=== PATIENT | female | born 1995 | race Caucasian/White ===

== ENCOUNTER 2019-07-20 17:41 | Emergency (ER) | payer BC, SELFPAY ==
[2019-07-20 17:45] VITALS: BP 145/102; PULSE 125; RESP 18; TEMP 36.4; O2SAT 100
[2019-07-20 17:55] VITALS: RESP 18
--- NOTE | 2019-07-20 18:06 | PC.NURSE ---
Spoke with poison control at this time, states Clonazepam peaks at approx 1-4 hours after ingestion and has a half life of 30-40 hours where patient may be tired. Recommends symptomatic and supportive care, monitor for mild hypotension. Also states based on patients weight and age max dose is approx 36.8 mg.
--- NOTE | 2019-07-20 18:13 | ECG_ITS ---
Measurements Intervals [place] Rate: 111 P: 47 OK: 154 QRS: 20 QRSD: 72 T: 14 QT: 305 QTc: 416 Interpretive Statements SINUS TACHYCARDIA POSSIBLE LEFT ATRIAL ENLARGEMENT LOW QRS VOLTAGE IN PRECORDIAL LEADS BORDERLINE T WAVE ABNORMALITY- INFERIOR LEADS ABNORMAL ECG Electronically Signed On 07-21-2019 7:57:07 CDT by Scott Murray D.O.
[2019-07-20 18:27] LABS: Basophils Absolute Auto 0.1 K/mm3 (0.0-0.1); Basophils Percent Auto 0.4 % (0.2-1.2); Eosinophils Absolute Auto 0.3 K/mm3 (0-0.3); Eosinophils Percent Auto 2.3 % (0-4.4); Hematocrit 37.9 % (37.0-47.0); Hemoglobin 11.5 g/dL (12.0-15.0); Immature Granulocyte Absolute 0.08 K/mm3 (0.00-0.031); Immature Granulocyte Percent A 0.6 % (0-0.5); Lymphocytes Absolute Auto 2.86 K/mm3 (0.9-3.2); Lymphocytes Percent Auto 20.3 % (18.3-44.2); Mean Corpuscular HGB Conc 30.3 g/dl (32-36); Mean Corpuscular Hemoglobin 23.4 pg (26-34); Mean Corpuscular Volume 77.2 fl (80-100); Mean Platelet Volume 9.7 fl (7.4-10.4); Monocytes Absolute Auto 0.8 K/mm3 (0.1-0.6); Monocytes Percent Auto 5.5 % (2.6-8.5); Neutrophils Percent Auto 70.9 % (45.5-73.1); Platelet Count Result 465 k/mm3 (150-375); Red Blood Count 4.91 M/mm3 (4.2-5.4); Red Cell Distribution Width 15.9 % (11.5-14.5); White Blood Count 14.1 K/mm3 (4.5-10.0)
[2019-07-20 18:29] LABS: Add Urine Microscopic? NO; Appearance Urine Clear (Clear); Bilirubin Urine Negative (Negative); Blood Urine Negative (Negative); Color Urine Colorless (Yellow); Glucose Urine UA Negative (Negative); Ketones Urine Negative (Negative); Leukocyte Esterase Ur Negative LEU/UL (Negative); Nitrate Urine Negative (Negative); Protein Urine Negative (Negative); Specific Grav Ur 1.006 (1.001-1.035); Urobilinogen Urine Negative mg/dL (<2.0)
[2019-07-20 18:37] VITALS: BP 144/93; PULSE 121; RESP 23; O2SAT 100
[2019-07-20 18:41] LABS: Alanine Aminotransferase 18 U/L (4-35); Albumin Level 4.4 g/dL (3.5-5.1); Alkaline Phosphatase 126 U/L (38-126); Aspartate Amino Transferase 23 U/L (14-36); Bilirubin,Total 0.3 mg/dL (0.2-1.3); Blood Urea Nitrogen 10 mg/dL (7-17); Calcium 9.4 mg/dL (8.4-10.2); Carbon Dioxide 29 mmol/L (22-30); Chloride 101 mmol/L (98-107); Estimated Glomerular Filt Rate > 60; Ethanol < 10 mg/dL (<10); Glucose 91 mg/dL (65-105); Sodium 137 mmol/L (137-145)
[2019-07-20 18:42] LABS: Potassium 3.7 mmol/L (3.4-5.0)
[2019-07-20 18:44] LABS: Amphetamine Screen Urine Negative (Negative); Barbiturate Screen Urine Negative (Negative); Benzodiazepines Screen Urine Negative (Negative); Cannabinoid Screen Urine Negative (Negative); Cocaine Screen Urine Negative (Negative); Methadone Screen Urine Negative (Negative); Opiate Screen Urine Negative (Negative)
[2019-07-20 18:47] LABS: Phencyclidine Screen Urine Negative (Negative)
--- NOTE | 2019-07-20 19:05 | ED.GENADULT ---
HPI - General Adult General Chief complaint: Overdose <Kevin Mandujano PA-C - Last Filed: 07/20/19 19:12> Stated complaint: TOOK 8 KLONOPIN <Kevin Mandujano PA-C - Last Filed: 07/20/19 19:12> Time Seen by Provider: 07/20/19 18:13 <Kevin Mandujano PA-C - Last Filed: 07/20/19 19:12> Source: patient <Kevin Mandujano PA-C - Last Filed: 07/20/19 19:12> Mode of arrival: ambulatory <Kevin Mandujano PA-C - Last Filed: 07/20/19 19:12> Limitations: no limitations <Kevin Mandujano PA-C - Last Filed: 07/20/19 19:12> History of Present Illness HPI narrative: Patient is a 24-year-old female who presents after noting that she took 10 0.5 mg Klonopin's 45 minutes prior to arrival after becoming anxious and stressed over cutting her boyfriend's 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 Patient denies any suicidal homicidal ideation or passive wish. Patient notes that she normally takes 0.5 mg daily for anxiety. On arrival patient notes feeling tired but has no other complaints. Patient denies any other history of trying to harm herself or others. <Kevin Mandujano PA-C - Last Filed: 07/20/19 19:12> Related Data Home medications: Home Medications Medication Instructions Recorded Confirmed acyclovir 800 mg PO DAILY 07/20/19 clonazepam 0.5 mg PO DAILY 07/20/19 <Kevin Mandujano PA-C - Last Filed: 07/20/19 19:12> Allergies/adverse reactions: Allergies Allergy/AdvReac Type Severity Reaction Status Date / Time cefprozil Allergy Unknown Unknown Verified 07/20/19 17:59 <Kevin Mandujano PA-C - Last Filed: 07/20/19 19:12> Review of Systems Review of Systems: All systems reviewed & are unremarkable except as noted in HPI and below <Kevin Mandujano PA-C - Last Filed: 07/20/19 19:12> PMFSH Past Medical History Medical History: Medical History Anxiety <Kevin Mandujano PA-C - Last Filed: 07/20/19 19:12> Surgical History Surgical History: Surgical History Hx of breast reduction, elective <Kevin Mandujano PA-C - Last Filed: 07/20/19 19:12> Social History Social History: Social History (Updated 07/20/19 @ 19:06 by Kevin Mandujano PA-C) Smoking status: Current every day smoker Alcohol intake: never Substance use: never Living arrangements: with family Occupation/Education: occupation Gender identity (if verbalized by the patient): Female <Kevin Mandujano PA-C - Last Filed: 07/20/19 19:12> Exam Narrative: Exam Narrative: GENERAL: Well-appearing, obese, and in no acute distress. HEAD: Normocephalic, atraumatic. EYES: PERRLA and EOMI. ENT: Nares clear, no rhinorrhea or epistaxis. Mucous membranes moist. Oropharynx without tonsillar hypertrophy exudate or other lesions. NECK: Supple. No adenopathy or masses. CHEST: Clear to auscultation. No respiratory distress. No wheezes rales or rhonchi HEART: Regular rate and rhythm. No murmur heard. Normal peripheral pulses. ABDOMEN: Soft, nontender, nondistended EXTREMITIES: Normal range of motion. No edema. SKIN: Warm, dry, no rash. NEURO: No focal deficits. Alert and oriented x3. Cranial nerves II through XII grossly intact. Normal speech PSYCH: Normal mood and affect. 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 She is here with her partner, and has been discharged from the psychiatric service. I asked her not to take more medicine than prescribed and to follow-up with her PCP. She has no other concerns. <Rosa Isela Cortés MD - Last Filed: 07/20/19 20:44> Vital Signs Vital signs: Vital Signs Temperature 97.5 F L 07/20/19 17:45 Pulse Rate 125 H 07/20/19 17:45 Respiratory Rate 18 07/20/19 17:45 Blood Pressure 145/102 H 07/20/19 17:45 Pulse Oximetry 100 07/20/19 17:45 T
[2019-07-20] MEDS: SODIUM CHLORIDE 0.9% IV 1,000 ML 999 ML IV CONT (19:30)
--- NOTE | 2019-07-20 19:48 | PC.NURSE ---
Crisis here at this time to evaluate pt.
== END 2019-07-20 20:58 | disposition home or self-care (01) ==
PROVIDERS: Emergency Provider Emergency Medicine; PCP Internal Medicine
DX: T42.4X1A Poisoning by benzodiazepines, accidental (unintentional), initial encounter (principal); F41.9 Anxiety disorder, unspecified; R00.0 Tachycardia, unspecified; R94.31 Abnormal electrocardiogram [ECG] [EKG]; F17.200 Nicotine dependence, unspecified, uncomplicated
CPT/HCPCS: 36415; 80053; 80307; 81003; 81025; 84443; 85025; 93005; 96360; 99284; J7030

== ENCOUNTER 2020-08-28 11:47 | Emergency (ER) | payer BC, SELFPAY ==
--- NOTE | 2020-08-28 11:51 | ED.URI ---
HPI - URI/Sore Throat General Chief Complaint: Upper Respiratory Infection Stated Complaint: SINUS CONGESTION/DRAINAGE/COUGH/EARACHE Time Seen by Provider: 08/28/20 11:51 Source: patient and RN notes reviewed History of Present Illness HPI Narrative: Patient is a 25-year-old female who presents the urgent care with complaints of sinus drainage, congestion, bilateral earache, cough. Patient states her right ear is really hurting the last couple weeks. States that symptoms have been ongoing for approximately a week and a half. States that her PCP has tested her for Covid twice since symptoms started and both tests were negative. Patient states that her PCP advised her to take Claritin as well as NyQuil and Mucinex. Patient states symptoms have not really improved. Denies of any fever, nausea, vomiting. No other acute complaints. No acute distress noted. Patient aware of the plan of care. Some parts of this dictation were generated by voice recognition software and may contain typographical and/or grammatical inaccuracies. Related Data Home Medications Medication Instructions Recorded Confirmed Claritin 08/28/20 Allergies Allergy/AdvReac Type Severity Reaction Status Date / Time cefprozil Allergy Unknown Unknown Verified 07/20/19 17:59 Review of Systems Review of Systems: Narrative: CONSTITUTIONAL: Denies fever, chills, or sweats. EYES: Denies visual changes, redness, or discharge. ENT: Reports of sinus congestion, bilateral otalgia worse on the right, sinus drainage CARDIOVASCULAR: Denies chest pain, palpitations, or edema. RESPIRATORY: Reports of cough without dyspnea GASTROINTESTINAL: Denies abdominal pain, nausea, vomiting, or diarrhea. GENITOURINARY: Denies dysuria or hematuria. SKIN: Denies rash or itching. MUSCULOSKELETAL: Denies back pain, joint pain, or myalgia. NEUROLOGIC: Denies headache, numbness, or weakness. All other systems reviewed are negative, except as documented in HPI. [facility] Past Medical History Medical History (Updated 08/28/20 @ 12:09 by IRMA Reich) Anxiety Surgical History Surgical History Hx of breast reduction, elective Social History Social History (Updated 07/20/19 @ 19:06 by Kevin Mandujano PA-C) Smoking status: Current every day smoker Alcohol intake: never Substance use: never Gender identity (if verbalized by the patient): Female Comments At the time of my signature, I reviewed and agree with the nursing past medical, surgical, social, and family history. There is no relevant family history pertinent to the patient complaint. Exam Narrative: Exam Narrative: GENERAL: This is a well-nourished, well-developed patient, in no apparent distress. HEAD: normocephalic, atraumatic. EYES: PERRL. Sclera clear/white. Vision is grossly intact. EARS: External ears normal, auditory canals clear and without drainage, moderately injected TM with moderate effusion to the right. Mild fluid noted behind left TM without otitis. Hearing grossly intact. NOSE: External nose normal with no obvious nasal discharge, nares without redness, no rhinorrhea. THROAT: Mucous membranes moist, posterior pharynx clear. Moderate postnasal drainage NECK: Neck supple, non-tender without lymphadenopathy CARDIOVASCULAR: Regular rate and rhythm without murmurs, gallops, or rubs. RESPIRATORY: Clear to auscultation. Breath sounds equal bilaterally. No wheezes, rales, or rhonchi. SKIN: warm, intact with no suspicious lesions or rash, good texture and turgor. NEURO: awake, alert, and oriented to person, place and time. There were no obvious focal neurologic abnormalities. EXTREMITIES: No clubbing, cyanosis, or edema. Course Vital Signs Vital signs: Vital Signs Temperature 97.9 F 08/28/20 11:55 Pulse Rate 95 08/28/20 11:55 Respiratory Rate 16 08/28/20 11:55 Blood Pressure 155/93 H 08/28/20 11:55 Pulse Oximetry 99 08/28
[2020-08-28 11:55] VITALS: BP 155/93; PULSE 95; RESP 16; TEMP 36.6; O2SAT 99
== END 2020-08-28 12:16 | disposition home or self-care (01) ==
PROVIDERS: Emergency Provider Nurse Practitioner Family; PCP Internal Medicine
DX: H66.91 Otitis media, unspecified, right ear (principal); J32.9 Chronic sinusitis, unspecified; F17.200 Nicotine dependence, unspecified, uncomplicated; R03.0 Elevated blood-pressure reading, without diagnosis of hypertension
CPT/HCPCS: 99213; G0463

== ENCOUNTER 2021-12-18 08:13 | Emergency (ER) | payer BC, SELFPAY ==
[2021-12-18 08:21] VITALS: BP 139/94; PULSE 98; RESP 16; TEMP 37; O2SAT 98
--- NOTE | 2021-12-18 08:21 | ED.URI ---
HPI - URI/Sore Throat General Chief Complaint: Upper Respiratory Infection Stated Complaint: SINUS CONGESTION/EARS CLOGGED/EYE DRAINAGE Time Seen by Provider: 12/18/21 08:21 Source: patient and RN notes reviewed Mode of arrival: ambulatory Limitations: no limitations History of Present Illness HPI Narrative: 26-year-old female presented for complaint of sinus congestion, bilateral ear pressure and left eye drainage for 2 days. She endorses the eye was crusted shut for 2 days and has had green discharge. She denies known sick contacts. 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 She denies shortness of breath, cough, wheezing, nausea, vomiting, diarrhea, fevers or chills. She is been doing Claritin, Flonase for symptoms. MD elicited complaint: cough Related Data Home Medications Medication Instructions Recorded Confirmed labetalol 200 mg tablet mg 12/18/21 Allergies Allergy/AdvReac Type Severity Reaction Status Date / Time cefprozil Allergy Unknown Unknown Verified 07/20/19 17:59 Review of Systems Review of Systems: CONSTITUTIONAL: Denies malaise, chills, sweats, fever EYES: Denies visual changes, redness, or discharge ENT: Reports rhinorrhea, congestion, sinus pain, otalgia, denies sore throat CARDIOVASCULAR: Denies chest pain, palpitations, edema RESPIRATORY: Reports post nasal drainage. Denies dyspnea GASTROINTESTINAL: Denies abdominal pain, nausea, vomiting, diarrhea SKIN: Denies rash or itching MUSCULOSKELETAL: Denies myalgia NEUROLOGIC: Denies headache PMFSH Past Medical History Medical History Anxiety Surgical History Surgical History Hx of breast reduction, elective Social History Social History Smoking status: Current every day smoker Alcohol intake: never Substance use: never Gender identity (if verbalized by the patient): Female Exam Narrative: GENERAL: Well-appearing EYES: conjunctivae clear to right eye, mild conjunctival injection to left eye. No purulent drainage. Mild left eye lid swelling. ENT: Mucous membranes moist. TM pearly carrasco with dull light reflex bilaterally; no tragal tenderness. Oropharynx erythematous without lesions or exudate CHEST: Clear to auscultation, breath sounds equal. HEART: Regular rate and rhythm. No murmur heard. SKIN: Warm, dry, no rash. NEURO: Alert and oriented x3. PSYCH: Normal mood and affect Course Course Emergency Course: Patient is aware of diagnosis, understands and agrees to treatment plan. Anticipatory guidance given. Patient agrees to follow-up as directed and is aware of reasons to seek care at the emergency department. Portions of this record may have been created with voice recognition software Level of Care: Express Care Visit Vital Signs Vital signs: reviewed MDM - URI/Sore Throat MDM Narrative Medical decision making narrative: Advised supportive measures for allergic rhinitis, will give antibiotic drops for left eye for reported green discharge. Reviewed signs/symptoms to go to the ER. Pt is appropriate for outpt treatment and f/u. Differential Diagnosis Differential diagnosis: Likely upper respiratory infection, sinusitis and viral infection Discharge Plan Discharge Clinical Impression: Allergic rhinitis Qualifiers: Allergic rhinitis trigger: unspecified Allergic rhinitis seasonality: unspecified Qualified Code(s): J30.9 - Allergic rhinitis, unspecified Conjunctivitis Qualifiers: Conjunctivitis type: acute Acute conjunctivitis type: unspecified Laterality: left Qualified Code(s): H10.32 - Unspecified acute conjunctivitis, left eye Patient Disposition: Home, Self-Care Condition: Stable Instructions: Allergic Rhinitis (ED), Conjunctivitis (ED) Additional Instructions: Recommend continuing Flonase spray and Zyrtec (or Claritin/Kylah) Avoid touching
== END 2021-12-18 08:39 | disposition home or self-care (01) ==
PROVIDERS: Emergency Provider Nurse Practitioner Family; PCP Internal Medicine
DX: J30.9 Allergic rhinitis, unspecified (principal); H10.32 Unspecified acute conjunctivitis, left eye; F17.200 Nicotine dependence, unspecified, uncomplicated
CPT/HCPCS: 99213; G0463

== ENCOUNTER 2022-03-15 14:09 | Emergency (ER) | payer BC, SELFPAY ==
--- NOTE | 2022-03-15 14:15 | ED.URI ---
HPI - URI/Sore Throat General Chief Complaint: Upper Respiratory Infection Stated Complaint: FEVER/BODY ACHES/CHILLS/DIARRHEA/COUGH Time Seen by Provider: 03/15/22 14:15 Source: patient and RN notes reviewed History of Present Illness HPI Narrative: Patient is a 26-year-old female who presents to urgent care complaints of fever, body aches, chills cough. Patient states symptoms started yesterday morning she has been taking Tylenol cold and flu. Denies any nausea or vomiting. States that her job but would like her evaluated for influenza. No other acute complaints. No acute distress noted. Patient aware of plan of care. Some parts of this dictation were generated by voice recognition software and may contain typographical and/or grammatical inaccuracies. Related Data Allergies Allergy/AdvReac Type Severity Reaction Status Date / Time cefprozil Allergy Unknown Unknown Verified 03/15/22 14:52 Review of Systems Review of Systems: CONSTITUTIONAL: Reports of fever, chills EYES: Denies visual changes, redness, or discharge. ENT: Reports of postnasal drainage CARDIOVASCULAR: Denies chest pain, palpitations, or edema. RESPIRATORY: Reports of cough without dyspnea GASTROINTESTINAL: Denies abdominal pain, nausea, vomiting GENITOURINARY: Denies dysuria or hematuria. SKIN: Denies rash or itching. MUSCULOSKELETAL: Denies back pain, joint pain. Reports body aches NEUROLOGIC: Denies headache, numbness, or weakness. All other systems reviewed are negative, except as documented in HPI. [facility] Past Medical History Medical History (Updated 03/15/22 @ 14:51 by IRMA Reich) Anxiety Surgical History Surgical History Hx of breast reduction, elective Social History Social History Smoking status: Current every day smoker Alcohol intake: never Substance use: never Gender identity (if verbalized by the patient): Female Comments At the time of my signature, I reviewed and agree with the nursing past medical, surgical, social, and family history. There is no relevant family history pertinent to the patient complaint. Exam Narrative: GENERAL: This is a well-nourished, well-developed patient, in no apparent distress. HEAD: normocephalic, atraumatic. EYES: PERRL. Sclera clear/white. Vision is grossly intact. EARS: External ears normal, auditory canals clear and without drainage, TMs normal without perforation. Hearing grossly intact. NOSE: External nose normal with no obvious nasal discharge, nares without redness, no rhinorrhea. THROAT: Mucous membranes moist, posterior pharynx clear. Moderate postnasal drainage NECK: Neck supple, non-tender without lymphadenopathy CARDIOVASCULAR: Regular rate and rhythm without murmurs, gallops, or rubs. RESPIRATORY: Clear to auscultation. Breath sounds equal bilaterally. No wheezes, rales, or rhonchi. SKIN: warm, intact with no suspicious lesions or rash, good texture and turgor. NEURO: awake, alert, and oriented to person, place and time. There were no obvious focal neurologic abnormalities. EXTREMITIES: No clubbing, cyanosis, or edema. Course Course Level of Care: Express Care Visit Vital Signs Vital signs: Vital Signs Temperature 99.0 F 03/15/22 14:16 Pulse Rate 109 H 03/15/22 14:16 Respiratory Rate 16 03/15/22 14:16 Blood Pressure 138/89 03/15/22 14:16 Pulse Oximetry 99 03/15/22 14:16 Oxygen Delivery Room Air 03/15/22 14:16 Temperature 99.0 F 03/15/22 14:16 Pulse Rate 109 H 03/15/22 14:16 Respiratory Rate 16 03/15/22 14:16 Blood Pressure 138/89 03/15/22 14:16 Pulse Oximetry 99 03/15/22 14:16 Oxygen Delivery Room Air 03/15/22 14:16 Reviewed MDM - URI/Sore Throat MDM Narrative Medical decision making narrative: Reviewed lab results with the patient. She is aware the flu swab was negative. Symptoms are consiste
[2022-03-15 14:16] VITALS: BP 138/89; PULSE 109; RESP 16; TEMP 37.2; O2SAT 99
== END 2022-03-15 14:56 | disposition home or self-care (01) ==
PROVIDERS: Emergency Provider Nurse Practitioner Family; PCP Internal Medicine
DX: J06.9 Acute upper respiratory infection, unspecified (principal); F17.200 Nicotine dependence, unspecified, uncomplicated
CPT/HCPCS: 87804; 99213; G0463

== ENCOUNTER 2022-06-03 09:57 | Emergency (ER) | payer BC, SELFPAY ==
--- NOTE | ~2022-06-03 | XR_ITS ---
EXAMINATION: XR finger 1st LT min 2V DATE: 06/03/2022 10:27 INDICATION: Left thumb pain and injury. TECHNIQUE: 3 views of left thumb were obtained. COMPARISON: None. FINDINGS: Bone alignment is normal. No fracture. Joint spaces are normal. IMPRESSION: 1. No fracture. Reviewed, dictated and finalized at location A. RITY OFFICER IMPRESSION: 1. No fracture.
[2022-06-03 10:08] VITALS: BP 138/91; PULSE 91; RESP 20; TEMP 36.9; O2SAT 100
--- NOTE | 2022-06-03 10:11 | ED.UPPEXIN ---
HPI - Extremity Injury (Upper) General Chief Complaint: Extremity Injury, Upper Stated Complaint: lt thumb injury, rt palm injury Time Seen by Provider: 06/03/22 10:10 Source: patient, RN notes reviewed and old records reviewed Mode of arrival: ambulatory Limitations: no limitations History of Present Illness HPI narrative: 27-year-old female presents to the [facility] with complaints of left thumb injury since last night. Patient states that she was on the floor playing with her child when her hand slipped and thinks that her thumb bent backwards. Bruising, swelling noted, tenderness along the 1st metacarpal as well as the proximal 1st phalanx. Sensation intact, capillary refill under 2 seconds. No snuffbox tenderness, positive radial pulse Patient states that she has taken Tylenol, has a splint in place MD complaint: injury to: left, hand and finger Related Data Home Medications Medication Instructions Recorded Confirmed No Home Medications 06/03/22 06/03/22 Allergies Allergy/AdvReac Type Severity Reaction Status Date / Time cefprozil Allergy Unknown Unknown Verified 06/03/22 10:12 Review of Systems Review of Systems: All systems reviewed & are unremarkable except as noted in HPI and below Constitutional: Constitutional: Reports no additional constitutional complaints Eyes: Eyes: Reports no additional eye complaints ENT: Reports system reviewed and no additional complaints, except as documented Cardiovascular: Cardiovascular: Reports no additional cardiovascular complaints, Denies chest pain and Denies dyspnea Respiratory: Respiratory: Reports no additional respiratory complaints, Denies chest congestion, Denies cough and Denies dyspnea Gastrointestinal: Gastrointestinal: Reports no additional gastrointestinal complaints, Denies abdominal pain, Denies nausea and Denies vomiting Musculoskeletal: Musculoskeletal: Reports as per HPI, Reports arthralgias and Reports joint swelling Integumentary/Breasts: Skin/Breast: Reports system reviewed and no additional complaints, except as docu Neurologic: Reports system reviewed and no additional complaints, except as documented Psychiatric: Psychiatric: Reports no additional psychiatric complaints Allergic/Immunologic: Allergic/Immunologic: Reports no additional allergic/immunologic complaints PMFSH Past Medical History Medical History Anxiety Surgical History Surgical History Hx of breast reduction, elective Social History Social History (Reviewed 06/03/22 @ 12:23 by ALDO Herrera Smoking status: Current every day smoker Alcohol intake: never Substance use: never Living arrangements: with family Occupation/Education: occupation Gender identity (if verbalized by the patient): Female Comments At the time of my signature, I reviewed and agree with the nursing past medical, surgical, social, and family history. There is no relevant family history pertinent to the patient complaint. Exam Const: General: cooperative, healthy appearing, comfortable, no acute distress, well developed, alert and well nourished Nutritional Appearance: well nourished Orientation/consciousness: patient oriented x3 Limitations: no limitations HENMT: Head: normal to inspection Ears: hearing grossly normal bilaterally and external ears normal Face/Nose/Sinus: Normal external nose present, Normal nares present, Normal nasal mucous membranes and turbinates present and normal facial exam Face and sinus: normal facial exam Mouth: Yes Normal oral and palatal mucosa present, Yes lip normal and Yes moist mucous membranes Eyes: General: appearance normal, both eyes and all related structures Alignment and Position: alignment normal Periorbital: periorbital findings normal Conjunctivae: conjunctivae normal Pupils: Equal, round and reactive pupils present EOM:
== END 2022-06-03 10:53 | disposition home or self-care (01) ==
PROVIDERS: Emergency Provider Nurse Practitioner; PCP Internal Medicine
DX: S63.642A Sprain of metacarpophalangeal joint of left thumb, initial encounter (principal); F17.200 Nicotine dependence, unspecified, uncomplicated; W51.XXXA Accidental striking against or bumped into by another person, initial encounter
CPT/HCPCS: 73140; 99213; G0463

== ENCOUNTER 2022-11-18 07:01 | Outpatient (CLI) | payer BC, SELFPAY ==
[2022-11-18 08:28] LABS: Alanine Aminotransferase 17 U/L (6-35); Albumin Level 3.9 g/dL (3.5-5.1); Alkaline Phosphatase 104 U/L (38-126); Anion Gap 4 mmol/L (8-16); Aspartate Amino Transferase 19 U/L (14-36); Bilirubin,Total 0.4 mg/dL (0.2-1.3); Blood Urea Nitrogen 9 mg/dL (7-17); Calcium 8.8 mg/dL (8.4-10.2); Carbon Dioxide 26 mmol/L (22-30); Chloride 104 mmol/L (98-107); Cholesterol 186 mg/dL (0-200); Estimated Glomerular Filt Rate > 60; Glucose 91 mg/dL (65-110); HDL Direct 41 mg/dL; Potassium 4.2 mmol/L (3.4-5.0); Sodium 134 mmol/L (137-145); Triglycerides 125 mg/dL (<150)
[2022-11-18 08:39] LABS: LDL Cholesterol Direct 110 mg/dL
[2022-11-18 08:56] LABS: Vitamin D 25 Hydroxy 16.7 ng/mL
[2022-11-18 09:27] LABS: Hemoglobin A1C 5.1 % (<5.7)
[2022-11-22 13:00] LABS: Insulin Level Total 3.6 uIU/mL (<=19.6)
[2022-11-23 05:24] LABS: FSH 3.9 mIU/mL (***); LH 2.2 mIU/mL (***); Progesterone 0.2 ng/mL (***)
== END 2022-11-18 07:02 | disposition home or self-care (01) ==
LOC: ANHLAB 07:02
PROVIDERS: PCP Internal Medicine; Visit Provider Obstetrics & Gynecology
DX: N92.6 Irregular menstruation, unspecified (principal)
CPT/HCPCS: 36415; 80053; 80061; 82306; 83001; 83002; 83036; 83525; 84144; 84443

== ENCOUNTER 2023-03-07 07:42 | Emergency (ER) | payer BC, SELFPAY ==
--- NOTE | ~2023-03-07 | CT_ITS ---
CT of the Abdomen and Pelvis: Indication: Abdominal pain Technique: 2.5 mm axial scans were obtained through the abdomen and pelvis following intravenous adm inistration of 100 cc of Omnipaque 350. Dose reduction technique was used on this scan by utilizing a utomated exposure control and iterative reconstruction technique. The dose-length product (DLP) was 1 225.06 mGy-cm. Findings: Scans through the lung bases are unremarkable. The liver, spleen, pancreas, gallbladder, adrenals and kidneys are within normal limits. No evidence of aortic aneurysm. No lymphadenopathy. No bowel obstruction or bowel wall thickening. There is no evidence to suggest acute appendicitis. Images through the pelvis were performed. Urinary bladder unremarkable. No adnexal mass seen. No asci waylon. There is apparent mild inflammatory change in the vicinity of the left ovary, nonspecific. No fl uid collection evident. Impression: Suggestion of mild inflammatory change in the vicinity the left ovary, nonspecific. Fat necrosis, or other inflammatory processes are within the differential diagnosis. No apparent involvement or vicini ty to the large bowel or small bowel. Reviewed, dictated and finalized at location M. [employer] Impression: Suggestion of mild inflammatory change in the vicinity the left ovary, nonspeci fic. Fat necrosis, or other inflammatory processes are within the differential diagnosis. No apparent involvement or vicinity to the large bowel or small britney l.
--- NOTE | ~2023-03-07 | US_ITS ---
EXAMINATION: US pelvic complete w TV DATE: 03/07/2023 10:54 INDICATION: Assess for ovarian torsion with abnormal CT TECHNIQUE: Multiple transabdominal and endovaginal sonographic images of the pelvis were obtained. COMPARISON: None. FINDINGS: The uterus measures 9.2 x 4.6 x 3.8 cm. The endometrial complex measures or-5 mm in thickness. 5 mm anechoic nabothian cyst at the posterior cervix. 10 mm hypoechoic likely fibroid at the posterior mg rine fundus. The right ovary measures 2.5 x 1.5 x 1.6 cm with 1.7 cm anechoic cyst/follicle. The left ovary measures 2.5 x 1.9 x 1.8 cm. After flow identified in both ovaries on color Doppler. There is no free fluid in the pelvis. IMPRESSION: 1. Vascular flow identified with color Doppler at both of the normal-appearing ovaries. 2. 1 cm uterine fibroid. Reviewed, dictated and finalized at location A. RCOATER
[2023-03-07 07:45] VITALS: BP 143/89; PULSE 94; RESP 18; TEMP 36.5; O2SAT 95
[2023-03-07 08:40] LABS: Basophils Absolute Auto 0.1 K/mm3 (0.0-0.1); Basophils Percent Auto 0.8 % (0.2-1.2); Eosinophils Absolute Auto 0.4 K/mm3 (0-0.3); Hematocrit 30.7 % (37.0-47.0); Hemoglobin 8.9 g/dL (12.0-15.0); Immature Granulocyte Absolute 0.05 K/mm3 (0.00-0.031); Immature Granulocyte Percent A 0.5 % (0-0.5); Lymphocytes Absolute Auto 2.34 K/mm3 (0.9-3.2); Lymphocytes Percent Auto 25.2 % (18.3-44.2); Mean Corpuscular Volume 72.6 fl (80-100); Mean Platelet Volume 8.8 fl (7.4-10.4); Monocytes Absolute Auto 0.5 K/mm3 (0.1-0.6); Monocytes Percent Auto 5.1 % (2.6-8.5); Neutrophils Percent Auto 64.4 % (45.5-73.1); Platelet Count Result 340 k/mm3 (150-375); Red Blood Count 4.23 M/mm3 (4.2-5.4); Red Cell Distribution Width 16.7 % (11.5-14.5); White Blood Count 9.3 K/mm3 (4.5-10.0)
[2023-03-07 08:50] LABS: Bacteria Urine None Seen /hpf; Non Pathogenic Casts 0-2; Squamous Epithelial Cell Urine None seen /hpf (Few); WBC Urine 0-5 /hpf
[2023-03-07 08:51] LABS: Alanine Aminotransferase 14 U/L (6-35); Albumin Level 3.7 g/dL (3.5-5.1); Alkaline Phosphatase 98 U/L (38-126); Anion Gap 9 mmol/L (8-16); Aspartate Amino Transferase 17 U/L (14-36); Bilirubin,Total 0.4 mg/dL (0.2-1.3); Blood Urea Nitrogen 7 mg/dL (7-17); Calcium 9.2 mg/dL (8.4-10.2); Carbon Dioxide 24 mmol/L (22-30); Chloride 107 mmol/L (98-107); Estimated Glomerular Filt Rate > 60; Glucose 103 mg/dL (65-110); Potassium 3.8 mmol/L (3.4-5.0); Sodium 140 mmol/L (137-145)
[2023-03-07 08:52] LABS: Prothrombin Time 13.4 Seconds (11.1-14.7)
[2023-03-07 08:53] LABS: Partial Thromboplastin Time 29.5 SECONDS (22.3-36.8)
[2023-03-07 09:02] LABS: Appearance Urine Clear (Clear); Blood Urine 2+ (Negative); Color Urine Yellow (Yellow); Glucose Urine UA Negative (Negative); Ketones Urine Negative (Negative); Nitrate Urine Negative (Negative); Protein Urine Negative (Negative)
[2023-03-07 09:03] LABS: Add Urine Microscopic? YES; Bilirubin Urine Negative (Negative); Leukocyte Esterase Ur Negative LEU/UL (Negative); Urobilinogen Urine 0.2 mg/dL (<2.0)
--- NOTE | 2023-03-07 09:06 | ED.GENADULT ---
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 CRAMPING Time Seen by Provider: 03/07/23 08:26 History of Present Illness HPI narrative: 27-year-old female presenting to the emergency department for evaluation for lower abdominal pain. Patient reports the last few months she has had very irregular periods and patient has been following up with OB Gyne for this. Patient reports in February she was started on control to help regulate her period but has still been having heavy periods. patient reports she is currently menstruating. Patient presented to the emergency department today due to increased lower abdominal pain. Patient did take Tylenol and ibuprofen for pain control. Related Data Home Medications Medication Instructions Recorded Confirmed lisinopril 10 mg tablet 10 mg PO DAILY 11/15/22 bupropion HCl 150 mg 24 hr tablet, mg PO 03/07/23 03/07/23 extended release valacyclovir 500 mg tablet 500 mg PO PRN 03/07/23 (Valtrex) Allergies Allergy/AdvReac Type Severity Reaction Status Date / Time cefprozil Allergy Unknown Unknown Verified 03/07/23 07:52 Review of Systems Review of Systems: All systems reviewed & are unremarkable except as noted in HPI and below PMFSH Past Medical History Medical History Anxiety HSV-2 (herpes simplex virus 2) infection Hypertension Surgical History Surgical History History of section Hx of breast reduction, elective Social History Social History Smoking status: Current every day smoker Alcohol intake: current Alcohol use details: Rarely Substance use: never Lack of Transportation: No Lack of Food: Never True Current Housing: I Have Housing Concerned About Future Housing: No Difficulty Paying Gas/Electric Bills: No Difficulty Paying for Meds: No Currently Unemployed: No Education: Associate Degree Difficulty w/ Childcare or Family Care: No Living arrangements: with family Occupation/Education: occupation Gender identity (if verbalized by the patient): Female Sexual Orientation (if Verbalized by the Patient): Straight or Heterosexual Spiritual care concerns: No Exam Narrative: APPEARANCE: Well appearing, no pain, no distress, well-nourished. HEAD: normocephalic, atraumatic. EYES: PERRLA/EOMI, conjunctivae clear. NOSE: Normal no drainage EARS:TMS clear with good light reflex. THROAT: Pharynx clear, no exudate. NECK: Supple. No adenopathy, no masses. RESPIRATORY: Airway patent, respirations nonlabored. Clear to auscultation bilaterally, no rales, rhonchi, wheezing. CARDIOVASCULAR: Regular rate and rhythm without murmurs rubs or gallops. ABDOMINAL: Soft, suprapubic tenderness to palpation MUSCULOSKELETAL: Moves all extremities. Strength/ROM intact, No edema, No calf tenderness. NEURO: Alert. Cranial nerves II through XII intact. Grossly intact SKIN: Warm, dry. Normal Color Course Course Emergency Course: 27-year-old female presenting to the emergency department for evaluation lower abdominal pain and vaginal bleeding. Patient is afebrile with a white count of 9.3. Patient's hemoglobin is 8.9 , patient has known anemia secondary to heavy vaginal bleeding. PT PTT are within normal limits. No significant abnormalities on the CMP UA did show evidence of hematuria but patient is still having vaginal bleeding. CT scan did show some nonspecific fat stranding associated with the left ovary with no identification for the patient's symptoms. Ultrasound was ordered to evaluate for torsion and patient has good blood flow to both ovaries. The patient was updated on the results of her workup the patient was encouraged to have close follow-up with her OB Gyne. All questions concerns were addressed Vital Signs Vital
[2023-03-07] MEDS: SODIUM CHLORIDE 0.9% IV 1,000 ML 999 ML IV CONT (09:14)
[2023-03-07] MEDS: HYDROmorphone HCL INJ (*CRX) 1 MG/ML SYR 0.5 MG IV PUSH (09:14)
[2023-03-07 11:06] VITALS: BP 149/99; PULSE 73; RESP 18; O2SAT 99
[2023-03-07 12:16] VITALS: BP 149/82; PULSE 70; RESP 14; O2SAT 96
== END 2023-03-07 12:17 | disposition home or self-care (01) ==
PROVIDERS: Emergency Provider Emergency Medicine; PCP Internal Medicine
DX: R10.30 Lower abdominal pain, unspecified (principal); D64.9 Anemia, unspecified; N92.6 Irregular menstruation, unspecified; F17.210 Nicotine dependence, cigarettes, uncomplicated; I10 Essential (primary) hypertension; F41.9 Anxiety disorder, unspecified
CPT/HCPCS: 36415; 74177; 76830; 76856; 80053; 81001; 81025; 85025; 85610; 85730; 96361; 96374; 99284; J1170; J7030; Q9967

== ENCOUNTER 2023-06-01 16:04 | Emergency (ER) | payer BC, SELFPAY ==
[2023-06-01 16:16] VITALS: BP 133/79; PULSE 105; RESP 18; TEMP 36.8; O2SAT 100
--- NOTE | 2023-06-01 16:26 | ED.GENADULT ---
HPI - General Adult General Chief complaint: Upper Respiratory Infection Stated complaint: SORE THROAT/EARACHE/CONGESTION Source: patient, RN notes reviewed and old records reviewed Mode of arrival: ambulatory Limitations: no limitations History of Present Illness HPI narrative: 28-year-old [facility] complaints sinus congestion bilateral ear pressure, headache sore throat started yesterday. Patient taking [id number] medications with no relief. Patient denies any other symptoms. Related Data Home Medications Medication Instructions Recorded Confirmed lisinopril 10 mg tablet 10 mg PO DAILY 11/15/22 bupropion HCl 150 mg 24 hr tablet, mg PO 03/07/23 03/07/23 extended release valacyclovir 500 mg tablet 500 mg PO PRN 03/07/23 (Valtrex) bupropion HCl 300 mg 24 hr tablet, mg PO 06/01/23 extended release naltrexone 50 mg tablet mg 06/01/23 Allergies Allergy/AdvReac Type Severity Reaction Status Date / Time cefprozil Allergy Unknown Unknown Verified 06/01/23 16:11 Review of Systems Constitutional: Constitutional: Reports no additional constitutional complaints, Denies body ache(s), Denies chills, Denies fatigue, Denies fever(s) and Reports headache(s) Eyes: Eyes: Reports no additional eye complaints and Denies blurry vision ENT: Reports system reviewed and no additional complaints, except as documented, Denies vertigo, Denies dizziness, Denies ear discharge, Reports otalgia, Denies facial pain, Denies headache(s), Reports nasal congestion, Denies nasal discharge, Denies sinus pain, Reports sinus pressure and Reports sore throat Cardiovascular: Cardiovascular: Reports no additional cardiovascular complaints, Denies chest pain, Denies chest pain at rest, Denies rapid heart rate and Denies dyspnea Respiratory: Respiratory: Reports no additional respiratory complaints, Denies chest congestion, Denies cough, Denies pain on inspiration, Denies pain with cough and Denies dyspnea Gastrointestinal: Gastrointestinal: Denies abdominal pain, Denies diarrhea, Denies nausea and Denies vomiting Integumentary/Breasts: Skin/Breast: Denies rash Neurologic: Reports system reviewed and no additional complaints, except as documented, Denies vertigo, Denies dizziness and Denies headache(s) Endocrine: Endocrine: Denies fatigue PMFSH Past Medical History Medical History Anxiety HSV-2 (herpes simplex virus 2) infection Hypertension Surgical History Surgical History History of section Hx of breast reduction, elective Social History Social History Smoking status: Current every day smoker Alcohol intake: current Alcohol use details: Rarely Substance use: never Lack of Transportation: No Lack of Food: Never True Current Housing: I Have Housing Concerned About Future Housing: No Difficulty Paying Gas/Electric Bills: No Difficulty Paying for Meds: No Currently Unemployed: No Education: Associate Degree Difficulty w/ Childcare or Family Care: No Living arrangements: with family Occupation/Education: occupation Gender identity (if verbalized by the patient): Female Sexual Orientation (if Verbalized by the Patient): Straight or Heterosexual Spiritual care concerns: No Comments At the time of my signature, I reviewed and agree with the nursing past medical, surgical, social, and family history. There is no relevant family history pertinent to the patient complaint. Exam Const: General: cooperative, healthy appearing, no acute distress and well nourished Nutritional Appearance: well nourished Orientation/consciousness: patient oriented x3 Limitations: no limitations HENMT: Head: normal to inspection and normocephalic Ears: external ears normal, TM's normal bilaterally, EAC's normal and mastoids nor
== END 2023-06-01 16:38 | disposition home or self-care (01) ==
PROVIDERS: Emergency Provider Registered Nurse
DX: U07.1 COVID-19 (principal); F17.290 Nicotine dependence, other tobacco product, uncomplicated; I10 Essential (primary) hypertension; F41.9 Anxiety disorder, unspecified
CPT/HCPCS: 87426; 87804; 99213; G0463

== ENCOUNTER 2023-10-02 20:10 | Emergency (ER) | payer BC, SELFPAY ==
[2023-10-02 20:13] VITALS: BP 139/77; PULSE 89; RESP 16; TEMP 36.7; O2SAT 100
--- NOTE | 2023-10-02 21:56 | ED.EYEPROB ---
HPI - Eye Problem General Chief complaint: Eye Problems Stated complaint: left eye injury Time Seen by Provider: 10/02/23 21:22 Source: patient Mode of arrival: ambulatory Limitations: no limitations History of Present Illness HPI Narrative: This is a 28-year-old female that presents to the emergency department for left eye injury sustained just prior to arrival. Reports she was playing with her child and they accidentally scratched her. Reports irritation, and decreased visual acuity in the affected eye. She does not wear contacts or glasses. She used to as a child. Denies fever or drainage. Related Data Home Medications Medication Instructions Recorded Confirmed lisinopril 10 mg tablet 10 mg PO DAILY 11/15/22 06/01/23 bupropion HCl 150 mg 24 hr tablet, 300 mg PO DAILY 03/07/23 06/01/23 extended release valacyclovir 500 mg tablet 500 mg PO PRN PRN Outbreak 03/07/23 06/01/23 (Valtrex) naltrexone 50 mg tablet 50 mg PO DAILY 06/01/23 06/01/23 Allergies Allergy/AdvReac Type Severity Reaction Status Date / Time cefprozil Allergy Unknown Unknown Verified 10/02/23 21:13 Review of Systems Review of Systems: CONSTITUTIONAL: Denies fever EYES: Reports visual changes. Denies redness, or discharge. All systems reviewed & are unremarkable except as noted in HPI and below PMFSH Past Medical History Medical History Anxiety HSV-2 (herpes simplex virus 2) infection Hypertension Surgical History Surgical History History of section Hx of breast reduction, elective Social History Social History Smoking status: Current every day smoker Alcohol intake: current Alcohol use details: Rarely Substance use: never Lack of Transportation: No Lack of Food: Never True Current Housing: I Have Housing Concerned About Future Housing: No Difficulty Paying Gas/Electric Bills: No Difficulty Paying for Meds: No Currently Unemployed: No Education: Associate Degree Difficulty w/ Childcare or Family Care: No Living arrangements: with family Occupation/Education: occupation Gender identity (if verbalized by the patient): Female Sexual Orientation (if Verbalized by the Patient): Straight or Heterosexual Spiritual care concerns: No Exam Narrative: GENERAL: Well-appearing, well-nourished, and in no acute distress. HEAD: Normocephalic, atraumatic. EYES: PERRLA and EOMI. No foreign bodies noted. Eye pressure 18 on the left, 23 on the right. Positive fluorescein stain uptake with small corneal abrasion on the left eye lateral to the pupil EXTREMITIES: Normal range of motion. No edema. SKIN: Warm, dry, no rash. NEURO: No focal deficits. Alert and oriented x3. PSYCH: Normal mood and affect Course Vital Signs Vital signs: Vital Signs Temperature 98.0 F 10/02/23 20:13 Pulse Rate 89 10/02/23 20:13 Respiratory Rate 16 10/02/23 20:13 Blood Pressure 139/77 10/02/23 20:13 Pulse Oximetry 100 10/02/23 20:13 Oxygen Delivery Room Air 10/02/23 20:13 Temperature 98.0 F 10/02/23 20:13 Pulse Rate 89 10/02/23 20:13 Respiratory Rate 16 10/02/23 20:13 Blood Pressure 139/77 10/02/23 20:13 Pulse Oximetry 100 10/02/23 20:13 Oxygen Delivery Room Air 10/02/23 20:13 MDM - Eye Problem MDM Narrative Medical decision making narrative: Patient presents to the emergency department after an eye injury today. Patient noted to have a small corneal abrasion. She does have some visual changes. Likely due to position of the abrasion. She will be started on prophylactic antibiotic and was instructed to follow-up with an program attendant. She was given warnings to return to the ER Differential Diagnosis Differential diagnosis: Likely corneal abrasion, conjunctivitis and acute iritis Critical Care
== END 2023-10-02 22:16 | disposition home or self-care (01) ==
LOC: ANHED 22:10
PROVIDERS: Emergency Provider Physician Assistant
DX: S05.02XA Injury of conjunctiva and corneal abrasion without foreign body, left eye, initial encounter (principal); I10 Essential (primary) hypertension; F17.200 Nicotine dependence, unspecified, uncomplicated; W50.4XXA Accidental scratch by another person, initial encounter
CPT/HCPCS: 99283

== ENCOUNTER 2023-11-07 11:55 | Emergency (ER) | payer BC, SELFPAY ==
[2023-11-07 12:09] VITALS: BP 133/87; PULSE 88; RESP 16; TEMP 36.8; O2SAT 100
[2023-11-07 12:13] VITALS: BP 133/87; PULSE 88; RESP 16; TEMP 36.8; O2SAT 100
--- NOTE | 2023-11-07 12:22 | ED.URI ---
HPI - URI/Sore Throat General Chief Complaint: Upper Respiratory Infection Stated Complaint: sore throat/tight chest/ear pain Time Seen by Provider: 11/07/23 12:15 Source: patient Mode of arrival: ambulatory Limitations: no limitations History of Present Illness HPI Narrative: Catalina is a 28-year-old female patient presenting to the clinic today with complaints of sore throat, chest tightness, cough, runny nose, congestion, and right ear pain that started on Monday. She reports this morning she started to have sore throat. Denies any known fever, chills, or body aches. 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 MD elicited complaint: sore throat, rhinorrhea, nasal congestion and other (Right ear pain) Related Data Home Medications Medication Instructions Recorded Confirmed lisinopril 10 mg tablet 10 mg PO DAILY 11/15/22 11/07/23 bupropion HCl 150 mg 24 hr tablet, 300 mg PO DAILY 03/07/23 11/07/23 extended release Allergies Allergy/AdvReac Type Severity Reaction Status Date / Time cefprozil Allergy Unknown Unknown Verified 11/07/23 12:37 Review of Systems Review of Systems: Pertinent positives per HPI. Patient denies any fever, chills, rash, headache, visual changes, dizziness, shortness of breath, chest pain, palpitations, nausea, vomiting, diarrhea, constipation, abdominal pain, or any urinary issues. [facility] Past Medical History Medical History Anxiety HSV-2 (herpes simplex virus 2) infection Hypertension Surgical History Surgical History History of section Hx of breast reduction, elective Social History Social History Smoking status: Current every day smoker Alcohol intake: current Alcohol use details: Rarely Substance use: never Lack of Transportation: No Lack of Food: Never True Current Housing: I Have Housing Concerned About Future Housing: No Difficulty Paying Gas/Electric Bills: No Difficulty Paying for Meds: No Currently Unemployed: No Education: Associate Degree Difficulty w/ Childcare or Family Care: No Living arrangements: with family Occupation/Education: occupation Gender identity (if verbalized by the patient): Female Sexual Orientation (if Verbalized by the Patient): Straight or Heterosexual Spiritual care concerns: No Comments At the time of my signature, I reviewed and agree with the nursing past medical, surgical, social, and family history. There is no relevant family history pertinent to the patient complaint. Exam Narrative: General: Well-developed, well nourished, in no apparent distress Head: Normocephalic, atraumatic Eyes: Pupils equally round and reactive to light bilaterally, EOM intact, sclera and conjunctive clear, no discharge, lids normal Ears: TMs intact and congested, ear canals clear, no drainage, grossly hearing normal. Nose: Nares patent, clear nasal discharge, mild inflammation, no sinus tenderness. Mouth: Oral pharynx mildly red without lesions or masses, good dentition, MMM. Neck: Supple, trachea midline, no enlargement of anterior or posterior cervical nodes, no thyroid masses or goiter palpable. Cardio: Regular rate and rhythm, s1 and s2 normal, no murmur appreciated. Resp: Clear to auscultation bilaterally, no rhonchi, rales, wheezing or rubs Course Course Emergency Course: Portions of this record may have been created with voice recognition software. Level of Care: Express Care Visit Vital Signs Vital signs: Vital Signs Temperature 36.8 C 11/07/23 12:09 Pulse Rate 88 11/07/23 12:09 Respiratory Rate 16 11/07/23 12:09 Blood Pressure 133/87 11/07/23 12:09 Pulse Oximetry 100 11/07/23 12:09 Temperature 36.8 C 11/07/23 12:13 Pulse Rate 88 11/07/23 12:13 Respiratory Rate 16 08/
[2023-11-07 12:36] LABS: EDSTREPNEGPOS1 Presumptive Negative
== END 2023-11-07 12:45 | disposition home or self-care (01) ==
PROVIDERS: Emergency Provider Nurse Practitioner Family
DX: J06.9 Acute upper respiratory infection, unspecified (principal); J02.9 Acute pharyngitis, unspecified; Z20.822 Contact with and (suspected) exposure to COVID-19; F17.200 Nicotine dependence, unspecified, uncomplicated; I10 Essential (primary) hypertension; F41.9 Anxiety disorder, unspecified
CPT/HCPCS: 87081; 87426; 87880; 99213; G0463

== ENCOUNTER 2024-01-09 20:04 | Emergency (ER) | payer BC, SELFPAY ==
[2024-01-09 20:14] VITALS: BP 137/80; PULSE 99; RESP 17; TEMP 36.6; O2SAT 100
--- NOTE | 2024-01-09 21:53 | PC.NURSE ---
Patient called for in waiting room to be taken back to room; no answer
--- NOTE | 2024-01-09 22:11 | PC.NURSE ---
Patient again called in triage area for a room; no answer
== END 2024-01-09 23:19 | disposition left against medical advice (07) ==
DX: N92.1 Excessive and frequent menstruation with irregular cycle (principal)
CPT/HCPCS: 99199

== ENCOUNTER 2024-01-10 15:21 | Emergency (ER) | payer BC, SELFPAY ==
--- NOTE | ~2024-01-10 | US_ITS ---
EXAM: PELVIC ULTRASOUND HISTORY: LLQ pain, vaginal bleeding. 2 para 1 COMPARISON: Pelvic ultrasound dated 03/07/2023. Reference is also made to the CT examination of the abdomen and pelvis dated 03/07/2023 FINDINGS: UTERUS: 8.6 x 4.0 x 5.2 cm. The uterus is anteverted and anteflexed. The endometrium is likely in the secretory phase, as it is uniformly echogenic with through transmiss ion and posterior acoustic enhancement. The endometrial complex measures 16mm, which is in the upper limits of normal for a premenopausal pat ient in the secretory phase, as in this patient. Multiple nabothian cysts are identified within the cervix. RIGHT OVARY: The right ovary is unremarkable in size measuring 4.0 x 2.5 x 3.1 cm. Both arterial and venous flow are identified. A single anechoic avascular focus is identified within the right ovary measuring 26 x 14 x 17 mm, rep resenting a simple cyst, for which no further follow-up is needed. LEFT OVARY: The left ovary is unremarkable in size measuring 4.0 x 2.5 x 3.1 cm Both arterial and venous flow are identified. A single anechoic avascular focus is identified within the left ovary measuring 33 x 24 x 24 mm, repr esenting a simple cyst, for which no further follow-up is needed. No free fluid is identified within the pelvis. IMPRESSION: Endometrium which is within the upper limits of normal for thickness given this patient's likely secr etory phase of her cycle (given the ultrasound appearance). Bilateral simple ovarian cysts, which given size criteria and ultrasound appearance no further follow -up is needed. Reviewed, dictated and finalized at location A. IMPRESSION: Endometrium which is within the upper limits of normal for thickness given this patient's likely secretory phase of her cycle (given the ultrasound appearance ). Bilateral simple ovarian cysts, which given size criteria and ultrasound appear ance no further follow-up is needed.
[2024-01-10 15:33] VITALS: BP 150/86; PULSE 100; RESP 16; TEMP 36.7; O2SAT 98
--- NOTE | 2024-01-10 15:39 | ED.FEMALEGU ---
HPI - Female Genitourinary General Chief complaint: Vaginal Bleeding <LOBITO Quinones Last Filed: 01/10/24 16:30> Stated complaint: heavy vag bleed <LOBITO Quinones Last Filed: 01/10/24 16:30> Time Seen by Provider: 01/10/24 15:39 <LOBITO Quinones Last Filed: 01/10/24 16:30> Focused HPI: Patient is a 28 y/o female who presents to the ED with c/o vaginal bleeding. Patient reports she has been intermittent bleeding since Monday. States bleeding has been very heavy at times. She is passing large blood clots. She attempted to come to the ED last night but had to leave due to the wait time. She states initially this morning the bleeding was improved, but sxs became worse again around 230pm. States she has gone through 5 pads/tampons since 230pm. Patient also reports nausea, vomiting, dizziness, intermittent lower abd cramping. Her OBGYN is Dr. Cowart. She called the office earlier today and was told she would need to go back on control. Patient reports she has had irregular cycles since last summer 2022. LNMP was in July of this year. Had some spotting in December. Has been taking OTC iron supplement since December. GENERAL: Well-appearing, morbidly obese with BMI of 41.5, and in no acute distress. HEAD: Normocephalic, atraumatic. CHEST: Clear to auscultation. ?No respiratory distress. HEART: Regular rate and rhythm.? NEURO: ?Alert and oriented x3. Patient screened in triage and initial orders placed.? ?Additional care and disposition to be based upon?diagnostic testing and treatment. <LOBITO Quinones Last Filed: 01/10/24 16:30> Source: patient <LOBITO Quinones Last Filed: 01/10/24 16:30> Mode of arrival: ambulatory <LOBITO Quinones Last Filed: 01/10/24 16:30> Limitations: no limitations <LOBITO Quinones Last Filed: 01/10/24 16:30> Related Data Home medications: Home Medications Medication Instructions Recorded Confirmed lisinopril 10 mg tablet 10 mg PO DAILY 11/15/22 11/22/23 bupropion HCl 150 mg 24 hr tablet, 300 mg PO DAILY 03/07/23 11/22/23 extended release metformin 500 mg tablet,extended 500 mg PO DAILY 01/09/24 01/09/24 release 24 hr <LOBITO Quinones Last Filed: 01/10/24 16:30> Allergies/Adverse reactions: Allergies Allergy/AdvReac Type Severity Reaction Status Date / Time cefprozil Allergy Unknown Unknown Verified 01/10/24 15:22 <LOBITO Quinones Last Filed: 01/10/24 16:30> Review of Systems Review of Systems: All systems as dictated in HPI <LOBITO Barrios Last Filed: 01/11/24 01:17> [facility] Past Medical History Medical History: Medical History Anxiety HSV-2 (herpes simplex virus 2) infection Hypertension <LOBITO Quinones Last Filed: 01/10/24 16:30> Surgical History Surgical History: Surgical History History of section Hx of breast reduction, elective <LOBITO Quinones Last Filed: 01/10/24 16:30> Social History Social History: Social History Smoking status: Current every day smoker Alcohol intake: current Alcohol use details: Rarely Substance use: never Lack of Transportation: No Lack of Food: Never True Current Housing: I Have Housing Concerned About Future Housing: No Difficulty Paying Gas/Electric Bills: No Difficulty Paying for Meds: No Currently Unemployed: No Education: Associate Degree Difficulty w/ Childcare or Family Care: No Living arrangements: with family Occupation/Education: occupation Gender identity (if verbalized by the patient): Female Sexual Orientation (if Verbalized by the Patient): Straight or Heterosexual Spiritual care concerns: No <Ra
[2024-01-10 16:43] LABS: Bacteria Urine None Seen /hpf; Non Pathogenic Casts 0-2; RBC Urine >100 /hpf (0-2); Squamous Epithelial Cell Urine None Seen /hpf (Few)
[2024-01-10 16:50] LABS: Add Urine Microscopic? YES; Alanine Aminotransferase 11 U/L (6-35); Albumin Level 4.1 g/dL (3.5-5.1); Alkaline Phosphatase 100 U/L (38-126); Anion Gap 5 mmol/L (4-12); Appearance Urine Cloudy (Clear); Aspartate Amino Transferase 19 U/L (14-36); Bilirubin Urine 1+ (Negative); Bilirubin,Total 0.4 mg/dL (0.2-1.3); Blood Urea Nitrogen 10 mg/dL (7-17); Blood Urine 3+ (Negative); Carbon Dioxide 28 mmol/L (22-30); Chloride 102 mmol/L (98-107); Color Urine Red (Yellow); Estimated Glomerular Filt Rate > 60; Glucose 89 mg/dL (65-110); Glucose Urine UA Negative (Negative); Ketones Urine Negative (Negative); Leukocyte Esterase Ur 1+ LEU/UL (Negative); Nitrate Urine Negative (Negative); Potassium 3.8 mmol/L (3.4-5.0); Protein Urine 2+ mg/dL (Negative); Sodium 135 mmol/L (137-145); Specific Grav Ur 1.009 (1.001-1.035); Urobilinogen Urine 0.2 mg/dL (<2.0)
[2024-01-10 16:59] LABS: Prothrombin Time 14.1 Seconds (11.1-14.7)
[2024-01-10 17:00] LABS: Partial Thromboplastin Time 30.1 Seconds (22.3-36.8)
[2024-01-10 17:18] LABS: Basophils Absolute Auto 0.1 K/mm3 (0.0-0.1); Basophils Percent Auto 0.4 % (0.2-1.2); Eosinophils Absolute Auto 0.2 K/mm3 (0-0.3); Eosinophils Percent Auto 1.8 % (0-4.4); Hematocrit 30.8 % (37.0-47.0); Hemoglobin 8.9 g/dL (12.0-15.0); Immature Granulocyte Absolute 0.06 K/mm3 (0.00-0.031); Immature Granulocyte Percent A 0.5 % (0-0.5); Lymphocytes Absolute Auto 2.41 K/mm3 (0.9-3.2); Lymphocytes Percent Auto 19.8 % (18.3-44.2); Mean Corpuscular HGB Conc 28.9 g/dl (32-36); Mean Corpuscular Hemoglobin 20.8 pg (26-34); Mean Platelet Volume 9.5 fl (7.4-10.4); Monocytes Absolute Auto 0.5 K/mm3 (0.1-0.6); Monocytes Percent Auto 4.3 % (2.6-8.5); Neutrophils Absolute Auto 8.9 K/mm3 (1.3-6.7); Neutrophils Percent Auto 73.2 % (45.5-73.1); Platelet Count Result 417 k/mm3 (150-375); Red Blood Count 4.28 M/mm3 (4.2-5.4); Red Cell Distribution Width 17.9 % (11.5-14.5); White Blood Count 12.2 K/mm3 (4.5-10.0)
[2024-01-10 17:37] LABS: Platelet Estimate Increased (Adequate)
[2024-01-10 17:38] LABS: Schistocytes None Seen
[2024-01-10 17:39] LABS: Anisocytosis 2+; Hypochromasia 1+; Microcytosis 1+ (NORMAL)
[2024-01-10 19:30] LABS: Pregnancy On Board Control Positive; Urine Pregnancy Test Negative
[2024-01-10 21:03] VITALS: BP 130/86; PULSE 86; RESP 17; TEMP 37.2; O2SAT 98
== END 2024-01-10 20:35 | disposition home or self-care (01) ==
PROVIDERS: Physician Assistant; Emergency Provider Physician Assistant
DX: N92.1 Excessive and frequent menstruation with irregular cycle (principal); I10 Essential (primary) hypertension; E66.01 Morbid (severe) obesity due to excess calories; Z68.41 Body mass index [BMI] 40.0-44.9, adult; F41.9 Anxiety disorder, unspecified; Z79.899 Other long term (current) drug therapy; Z79.84 Long term (current) use of oral hypoglycemic drugs; F17.200 Nicotine dependence, unspecified, uncomplicated; Z79.3 Long term (current) use of hormonal contraceptives
CPT/HCPCS: 36415; 76830; 76856; 80053; 81001; 81025; 85025; 85610; 85730; 87086; 99284

== ENCOUNTER 2024-10-25 00:15 | Day surgery (SDC) | payer BC, SELFPAY ==
[2024-10-17 14:55] VITALS: BMI 40.4
--- NOTE | 2024-10-17 15:01 | SUR.PREOP ---
Report to the Outpatient Waiting Room, entrance under the green pavilion located off [facility], at time 0900 on date 10/25/24. Planned Procedure Time: 1100_.? Time changes happen often and if your time is changed the preop area will call you the afternoon before. - You and your visitor will be asked to self-screen and do not enter if you have any COVID symptoms. Please call surgeon if you need to reschedule. - A mask is optional within the hospital at this time. Patients may have clear liquids (water, carbonated beverages, clear teas, apple juice) until 3 hours prior to surgery with a maximum of 20 ounces. - No food from midnight until time of surgery and no smoking, or chewing tobacco (or any form of nicotine). No chewing gum, candy or mints. - Infants may have breast milk until 4 hours before surgery, infant formula 6 hours prior to surgery. - Children will be allowed to drink immediately following surgery.? If applicable, please bring a bottle or sippy cup to assist with drinking. Juice, water, soda, and popsicles are readily available.? For infants on formula, please bring formula the day of surgery.? Pacifiers are allowed. Take only the following medications with a SIP of water on the morning of surgery: no morning meds DO NOT STOP ANY OF YOUR OTHER PRESCRIPTION MEDICATIONS PRIOR TO SURGERY EXCEPT THE FOLLOWING Hold all vitamins and supplements for 3 days per anesthesiologist. Medications to discontinue per physician hold lisinopril and iron morning of surgery. hold vitamin c and vitamin 3 days prior to procedure Date to take last dose Please no make-up, nail setswana, hairspray, perfume, deodorant, or body powder the day of surgery.? No jewelry (including any body piercings) or valuables the day of surgery, leave them at home.? Please take a shower or bath the night before, or the morning of, surgery with an antibacterial soap.? Wear comfortable, loose fitting clothing.? Children are encouraged to wear pajamas. - Jewelry must be removed prior to entering the operating room.? Rings and piercings that are not removed may be cut off. - The hospital will not accept responsibility for valuables.? - Please leave all valuables, including medications, at home the day of surgery. If you are going home after surgery, a licensed tractor sweeper driver must drive you home.? - NO public transportation without another adult if you receive anesthesia. - We recommend that an adult stay with you for 24 hours following discharge. - We also recommend that you do not drive, make important decision, drink alcoholic beverages, or take any drugs that were not prescribed by your health care provider for at least 24 hours after your discharge time. For Pediatric surgeries, we recommend two adults accompany the child home. Follow any additional instructions given to you from your surgeon. Telephone instructions given to _patient__and asked if any additional questions and then verbalized understanding. Patient advised to call surgeon office or pre surgery nurse liaison [phone] if any additional questions.
--- OUTSIDE RECORDS SUMMARY | 2024-10-25 00:17 | XMS_ITS | Encounter Summary ---
Author Organization [facility] Address [address] [place] [address] Care Team Providers Care County Nurse Name Role Phone Roxy See PA-C Primary Care Provider [phone] Anjana Blanca MD Primary Care Provider [phone] Encounter Details Date Type Department Care Team (Late st Contact Info) Description 04/20/2024 [employer] Message Enc [facility] Group Family & Internal Medicine [facility] [id number] [place] [address] [place] [id number] [place] [address] Urgent Social History Tobacco Use Types Packs/Day Years Used Date Smoking Tobacco: Former Cigarettes 0.3 10 1 05/28/2012 - 03/28/2023 Passive Smoke Exposure: Past Smokeless Tobacco: Never Comments:Stopped smoking. Alcohol Use Standard Drinks/Week Comments Yes 0 (1 standard drink = 0.6 oz pur e alcohol) Maybe a couple a month AUDIT-C Answer Date Recorded Q1: How often do you have a drink containing alc ohol? Monthly or less 03/11/2020 Q2: How many drinks containi ng alcohol do you have on a typical day when you are drinking? 1 or 2 03/11/2020 Frequency of Binge Drinking Not on file 12/2019 PHQ-2 Answer Date Recorded Patient Health Questionnaire-2 Score 0 04/18/2024 Comments No Sex and Gender Information Value Date Recorded Sex Assigned at Female 04/22/2024 9:29 AM WARRANTY MANAGER Legal Sex Female 4:53 PM CDT Gender Identity Female 01/26/2022 9:57 AM CDT Sexual Orientation Not on file documented as of this encounter Functional Status * Calculated C-SSRS Risk Score (Lifetime/Recent) Answer Date of Assessment Author Status No Risk Indicated 04/22/2024 9:27 AM WARRANTY MANAGER Alma Jerry RN Active * [place] Suicide Severity Rating Scale (Screener/Recent Self-Report) Question Answer Date of Assessment Author Status 1. Wish to be (Past 1 Month) No 04/22/2024 9:27 AM WARRANTY MANAGER Alma Jerry RN Activ e 2. Non-Specific Active Suicidal Thoughts (Past 1 Month) No 04/22/2024 9:27 AM WARRANTY MANAGER Alma Jerry RN Activ e 6. Suicidal Behavior (Lifetime) No 04/22/2024 9:27 AM WARRANTY MANAGER Alma Jerry RN Activ e documented as of this encounter Plan of Treatment Not on file documented as of this encounter Visit Diagnoses Not on filedocumented in this encounter Additional Health Concerns Infection Onset Date Last Indicated Resolved Time Respiratory Rule Out 10/13/2024 10/13/2024 025 10:23 AM CDT COVID-19 Rule Out 10/13/2024 10/13/2024 10/13/2024 9:59 AM CDT Assessment Noted Time PHQ-9 Depression Total Score: 3 04/18/19 25 1:52 PM WARRANTY MANAGER documented as of this encounter Care Teams County Nurse Relationship Specialty Start Date End Date Roxy See PA-C PCP - General PHYSICIAN CADMIUM PLATER 07/17/23 06/04/24 [place] [address] [place] [address] PCP - General INTERNAL MEDICINE 06/05/24 documented as of this encounter
--- OUTSIDE RECORDS SUMMARY | 2024-10-25 00:17 | XMS_ITS | Encounter Summary ---
Author Organization [facility] Address [address] [place] [address] Care Team Providers Care Safety Deposit Boxes Custodian Name Role Phone Roxy See PA-C Primary Care Provider [phone] Anjana Blanca MD Primary Care Provider [phone] Encounter Details Date Type Department Care Team (Late st Contact Info) Description 04/24/2024 [employer] Message Enc [facility] Medical Group Family & Internal Medicine [address] [address] Anj[place] Blanca [place] [id number] [place] [address] Appointment Social History Tobacco Use Types Packs/Day Years Used Date Smoking Tobacco: Former Cigarettes 0.3 10 1 05/28/2012 - 03/28/2023 Passive Smoke Exposure: Past Smokeless Tobacco: Never Comments:Stopped smoking. Alcohol Use Standard Drinks/Week Comments Not Currently 0 (1 standard drink = 0.6 oz [...] Sex Assigned at Female 04/22/2024 9:29 AM BIOLOGICAL PLANT OPERATOR Legal Sex Female 4:53 PM CDT Gender Identity Female 01/26/2022 9:57 AM CDT Sexual Orientation Not on file documented as of this encounter Plan of Treatment Not on file documented as of this encounter Visit Diagnoses Not on filedocumented in this encounter Additional Health Concerns Infection Onset Date Last Indicated Resolved Time Respiratory Rule Out 10/13/2024 10/13/2024 025 10:23 AM CDT COVID-19 Rule Out 10/13/2024 10/13/2024 10/13/2024 9:59 AM CDT Assessment Noted Time PHQ-9 Depression Total Score: 3 04/18/19 1:52 PM BIOLOGICAL PLANT OPERATOR documented as of this encounter Care Teams Safety Deposit Boxes Custodian Relationship Specialty Start Date End Date Roxy See PA-C PCP - General PHYSICIAN COMMUNITY EDUCATION SPECIALIST 07/17/23 06/04/24 [place] [id number] [address] PCP - General INTERNAL MEDICINE 06/05/24 documented as of this encounter
--- OUTSIDE RECORDS SUMMARY | 2024-10-25 00:17 | XMS_ITS | Encounter Summary ---
Author Organization [facility] Address [address] [place] [address] Care Team Providers Care Jewel Cupping Machine Operator Name Role Phone Roxy See PA-C Primary Care Provider [phone] Anjana Blanca MD Primary Care Provider [phone] Encounter Details Date Type Department Care Team (Late st Contact Info) Description 04/19/2024 [place] Message Enc [facility] Medical Group Family & Internal Medicine [address] [address] [place] [id number] [place] [address] Test Results Social History Tobacco Use Types Packs/Day Years [...] Sex Assigned at Female 04/22/2024 9:29 AM INTAKE CLINICIAN Legal Sex Female 4:53 PM CDT Gender Identity Female 01/26/2022 9:57 AM CDT Sexual Orientation Not on file documented as of this encounter Functional Status * Calculated C-SSRS Risk Score (Lifetime/Recent) Answer Date of Assessment Author Status No Risk Indicated 04/22/2024 9:27 AM INTAKE CLINICIAN Alma Jerry RN Active * [place] Suicide Severity Rating Scale (Screener/Recent Self-Report) Question Answer Date of Assessment Author Status 1. Wish to be (Past 1 Month) No 04/22/2024 9:27 AM INTAKE CLINICIAN Alma Jerry, KIA Activ e 2. Non-Specific Active Suicidal Thoughts (Past 1 Month) No 04/22/2024 9:27 AM INTAKE CLINICIAN Alma Jerry RN Activ e 6. Suicidal Behavior (Lifetime) No 04/22/2024 9:27 AM INTAKE CLINICIAN Alma Jerry RN Activ e documented as of this encounter Progress Notes * Natasha French RN - 04/19/2024 12:31 PM CST Spoke to patient regarding results-see result management note. Patient said no need to respond to this [employer] message. KE CLINICIAN documented in this encounter Plan of Treatment Not on file documented as of this encounter Visit Diagnoses Not on filedocumented in this encounter Additional Health Concerns Infection Onset Date Last Indicated Resolved Time Respiratory Rule Out 10/13/2024 10/13/2024 025 10:23 AM CDT COVID-19 Rule Out 10/13/2024 10/13/2024 10/13/2024 9:59 AM CDT Assessment Noted Time PHQ-9 Depression Total Score: 3 04/18/19 25 1:52 PM INTAKE CLINICIAN documented as of this encounter Care Teams Jewel Cupping Machine Operator Relationship Specialty Start Date End Date Roxy See PA-C PCP - General PHYSICIAN SOFA BACK UPHOLSTERER 07/17/23 06/04/24 [place] [address] [address] PCP - General INTERNAL MEDICINE 06/05/24 documented as of this encounter
--- OUTSIDE RECORDS SUMMARY | 2024-10-25 00:17 | XMS_ITS | Clinical Summary ---
Author Organization [facility] Address [address] [place] [address] Care Team Providers Care Fitness Technician Name Role Phone Anjana Blanca MD Primary Care Provider [phone] Allergies Active Allergy Reactions Criticality Noted Date Comments Cefprozil Unknown Low 03/14/2018 Patient is unsure about the reaction Medications acyclovir (ZOVIRAX) 800 MG tablet Take 1 tablet (800 mg total) by mouth 2 (two) times daily. 2 Active BLISOVI FE 04/22 1-20 MG-MCG tablet Take 1 tablet by mouth daily. 4 Active lisinopril (PRINIVIL) 30 MG tabletIndications :Essential hypertension Take 1 tablet (30 mg total) by mouth daily. 90 tablet 1 5 Active FEROSUL 325 (65 Fe) MG tabletIndications :Iron deficiency anemia, unspecified iron deficiency anemia type,Fatigue, unspecified type Take 1 tablet (325 mg total) by mouth 3 (three) times daily with meals. 5 Active vitamin C (ASCORBIC ACID) 500 MG tabletIndications :Iron deficiency anemia, unspecified iron deficiency anemia type,Fatigue, unspecified type Take 1 tablet (500 mg total) by mouth 3 (three) times daily. With iron to increase absorption 5 Active ondansetron (ZOFRAN) 4 MG tablet Take 1 tablet (4 mg total) by mouth every 8 (eight) hours as needed for Nausea. 20 tablet 5 Active Active Problems Problem Noted Date Diagnosed Date Class 3 severe obesity due t o excess calories with serious comorbidity and body mass index (BMI) of 40.0 to 44.9 in adult 09/23/2024 Assessment & Plan (09/23/2024 8:06 AM CDT): Recommend to lose weight with diet control and exercise Cut back on sugary diet. History of herpes genitalis 09/23/2024 Assessment & Plan (09/23/2024 8:06 AM CDT): On acyclovir as needed for breakout by the studio operations manager Iron deficiency anemia, unsp ecified iron deficiency anemia type 09/23/2024 Assessment & Plan (09/23/2024 8:06 AM CDT): Under care by Associate Program Manager in [place] and had 3 iron infusions already. Currently on 1 iron tab with vit C daily Menorrhagia with irregular cycle 09/23/2024 Assessment & Plan (09/23/2024 8:06 AM CDT): Causing iron deficiency anemia probably Seeing studio operations manager tomorrow for consideration of ablation Patient has a child of 3 years old son On control pill Primary hypertension 06/16/2022 Assessment & Plan (09/23/2024 8:06 AM CDT): Better controlled Currently on lisinopril 30 mg daily Morbid obesity with BMI of 40.0-44.9, adult 04/2 04/2019 Wound infection 09/12/2018 Mastodynia 05/10/2018 Neck pain 05/09/2018 Muscle spasm 05/09/2018 Macromastia 05/09/2018 Chronic pain of both shoulders 05/09/2018 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[facility] 02/01/2018 Overview (2018): Overview: 02/01/18 repeat formal US confirms gestational sac w/o pole. Has appt w/Dr. Kohli 02/08/18. Genital herpes 02/08/2017 Overview (06/10/2022): Valtrex 36 weeks Common migraine with intractable migraine 2014 Overview (2018): Overview: Common migraine w/o aura, intractable Resolved Problems Problem Noted Date Diagnosed Date Resolved Date BMI 35.0-35.9,adult 02/08/2017 02/09/20 21 Encounters Date Type Department Care Team Description 10/13/2024 9:04 AM CDT - 10/13/2024 10:[address] [facility] Emergency Room [address] [id number] Paresh Silva DO Vomiting Discharge Disposition: Home or Self Care (Routine Discharge) 10/13/2024 Travel 09/23/2024 7:20 AM CDT Office Visit [facility] Medical Group Family & Internal Medicine - [place] [phone] [place] [phone] Anjana Blanca MD Physical (Physical for work ) 09/23/2024 Scan HEALTH INFO SRVCS Scanned, Doc Med Group 09/23/2024 Travel from Last 3 Months Immunizations Immunization Administration Dates Next Due Dtap 02/11/2012, 8,10/10/1995,03/08,1993 Fluzone 6 Months+ Quad (0.5 mL Prefilled Syringe) 03/25/2019 HPV 04/03/2012 HPV4 (Gardasil) 11/23/2007,11/19/2007,07/23/2007 Hepatitis A (Generic) 11/23/2007,05/21/2007 Hepatitis B (Generic Peds) 05/31/1994,1993 ,1993 Hib (PedvaxHIB)3 Dose 05/31/1994,03/08/1994,09/1993 Influenza Adult (Generic) 03/08/2021,03/25/2019, 01/18/2018 MMR 06/05/1997,05/31/1994 Meningococcal (Menactra) 05/21/2007 Polio IPV (Ipol) 06/05/1997, 5,03/08/1994,12/07 Polio Ipv (Generic) 06/05/1997, 5,03/08/1994,12/07 Tdap (Adacel) 03/25/2019 Tdap (Generic) 07/29/2021,05/21/2007,05/21/2007 Family History * Patient is adopted Medical History Relation Comments Alcohol Abuse Mother I was adopted- i nsure of her name Drug Abuse Mother Relation Status Comments Father Other Mother Other Social History Tobacco Use Types Packs/Day Years Used Date Smoking Tobacco: Former Cigarettes 0.3 10 1 05/28/2012 - 03/28/2023 Passive Smoke Exposure: Past Smokeless Tobacco: Never Tobacco Cessation:Counseling Given: No Comments:Stopped smoking. Alcohol Use Standard Drinks/Week Comments [...] Sex Assigned at Female 04/22/2024 9:29 AM COMMUNITY REPRESENTATIVE Legal Sex Female 4:53 PM CDT Gender Identity Female 01/26/2022 9:57 AM CDT Sexual Orientation Not on file Last Filed Vital Signs Vital Sign Reading Time Taken Comments Blood Pressure 129/102 10/13/2024 9:06 AM CDT Pulse 111 10/13/2024 9:06 AM CDT Temperature 36.4 C (97.6 F) 10/13/2024 9:06 AM CDT Respiratory Rate 18 10/13/2024 9:06 AM CDT Oxygen Saturation 98% 10/13/2024 9:08 AM CDT Inhaled Oxygen Concentration - - Weight 93 kg (205 lb) 10/13/2024 9:06 AM CDT Height 149.9 cm (4' 11) 10/13/2024 9:06 AM CDT Body Mass Index 41.4 10/13/2024 9:06 AM CDT Plan of Treatment Health Maintenance Due Date Last Done Comments Hepatitis C 2011 Cervical Cancer Screening Pap with HPV Testing (Age 30 to 64) Every 5 Years 2023 Cervical Cancer Screening Pap Smear (Age 30 to 64) Every 3 Years 07/25/2023 07/24/2020 Cervical Cancer Screening with HPV 07/25/2023 COVID-19 Vaccine ( season) 2023 01/26/2021, 10/19/2020 Annual Physical 09/23/2025 09/23/2024, 03/25/2019 DTaP, Tdap and Td Vaccines (10 - Td or Tdap) 07/30/2031 07/29/2021, 03/25/2019, 02/11/2012, Additional history exists Hepatitis B Vaccines Completed 05/31/1994, 1993, 1993 Meningococcal Vaccine Aged Out 05/21/2007 No tila bekah eligible based on patient's age to complete this topic HPV Vaccines Completed 04/03/2012, 11/02, 11/19/2007, Additional history exists PHQ-2 (Physician Iqugmiut) Completed 04/18/2024 Meningococcal B Vaccine Aged Out No l onger eligible based on patient's age to complete this topic Pneumococcal Vaccine: Pediatrics (0 to 5 Years) and At-Risk Patients (6 to 49 Years) Aged Out No longer eligible based on patient's age to complete this topic RSV Immunizations Under 20 Months Aged Out No longer eligible based on patient's age to complete this topic Procedures Procedure Name Priority Date/Time Associated Diagnosis Comments HC URINALYSIS AUTO W/O MICRO STAT 10/13/2024 9:31 AM CDT TEST URINE STAT 10/13/2024 9:31 AM CDT LIPASE STAT 10/13/2024 9:26 AM CDT COMPREHENSIVE METABOLIC PANEL STAT 10/13/2024 9:26 AM CDT CBC W/DIFF AUTOMATED STAT 10/13/2024 9:26 AM CDT CORONAVIRUS (COVID 19) STAT 9:22 AM CDT INFLUENZA A & B STAT 10/13/2024 9:22 AM CDT OUTSIDE CYTOPATH CERV/VAG INTERPRET (PAP) (SCAN ORDER) Routine 07/24/2020 from Last 3 Months or Most Recently Relevant to Health Maintenance Results * URINALYSIS (10/13/2024 9:31 AM CDT) COLOR (U) YELLOW 10/13/2024 9:54 AM CDT [facility] TRANSPARENCY CLEAR 10/13/2024 9:54 AM CDT [facility] SPECIFIC GRAVITY (U) 1.015 1.000 - 1.030 10/13/2024 9:54 AM CDT [facility] U PH 7.0 5.0 - 9.0 10/13/2024 9:54 AM CDT [facility] LEUKOCYTES (U) NEGATIVE NEGATIVE 10/13/2024 9:54 AM CDT [facility] NITRITES NEGATIVE NEGATIVE 10/13/2024 9:54 AM CDT [facility] PROTEIN RANDOM (U) NEGATIVE NEGATIVE 10/13/2024 9:54 AM CDT [facility] GLUCOSE (U) NEGATIVE NEGATIVE 10/13/2024 9:54 AM CDT [facility] KETONES MG/DL (U) NEGATIVE NEGATIVE 10/13/2024 9:54 AM CDT [facility] BILIRUBIN (U) NEGATIVE NEGATIVE 10/13/2024 9:54 AM CDT [facility] BLOOD (U) NEGATIVE NEGATIVE 10/13/2024 9:54 AM CDT [facility] URINE SPECIMEN OBTAINED BY CLEAN CATCH PROCEDURE / Unknown 10/13/2024 9:31 AM CDT us Paresh Silva DO URINE ORDERABLES Final Result [facility] [address] [place] [address], [place] [phone] * TEST URINE (10/13/2024 9:31 AM CDT) URINE HCG TEST NEGATIVE NEGATIVE 10/13/2024 9:56 AM CDT [facility] Comment: VERY DILUTE URINE SPECIMENS MAY NOT CONTAIN HAND WINDER LEVELS OF HCG. IF IS STILL SUSPECTED, A SERUM HCG TEST IS RECOMMENDED. URINE SPECIMEN FROM URETHRA / Unknown 10/13/2024 9:31 AM CDT us Paresh Silva DO URINE ORDERABLES Final Result [facility] [address] [place] [address], [place] [phone] * (ABNORMAL) COMPREHENSIVE METABOLIC PANEL (10/13/2024 9:26 AM CDT) GLUCOSE 81 70 - 99 MG/DL 10/13/2024 10:04 AM CDT [facility] BUN 6(L) 7 - 18 MG/DL 10/13/2024 10:04 AM CDT [facility] CREATININE S/P/B 0.77 0.55 - 1.02 MG/DL 10/13/2024 10:04 AM CDT [facility] SODIUM S/P/B 141 136 - 145 MMOL/L 10/13/2024 10:04 AM CDT [facility] POTASSIUM S/P/B 3.7 3.5 - 5.1 MMOL/L 10/13/2024 10:04 AM CDT [facility] CHLORIDE S/P/B 103 100 - 108 MMOL/L 10/13/2024 10:04 AM CDT [facility] CO2 30.9 21 - 32 MMOL/L 10/13/2024 10:04 AM [facility] CALCIUM S/P/B 8.7 8.5 - 10.1 MG/DL 10/13/2024 10:04 AM [facility] BILIRUBIN TOTAL S/P/B 0.7 0.2 - 1.2 MG/DL 10/13/2024 10:04 AM [facility] TOTAL PROTEIN S/P/B 7.1 6.4 - 8.2 G/DL 10/13/2024 10:04 AM [facility] ALBUMIN S/P/B 3.2(L) 3.4 - 5.0 G/DL 10/13/2024 10:04 AM [facility] AST 48(H) 15 - 37 U/L 10/13/2024 10:04 AM [facility] ALT 67(H) 14 - 55 U/L 10/13/2024 10:04 AM [facility] ALKALINE PHOSPHATASE S/P/B 144(H) 50 - 136 U/L 10/13/2024 10:46 AM [facility] Comment: CALLED TO AND READ BACK BY SALVADORRN @[id number], CD CORRECTED ON 10/13 AT 1046: PREVIOUSLY REPORTED 4 ANION GAP 7.1 5 - 15 MMOL/L 10/13/2024 10:04 AM [facility] BUN CREATININE RATIO 7.8 6 - 26 10/13/2024 10:04 AM [facility] A/G RATIO 0.8(L) 1.0 - 2.0 RATIO 10/13/2024 10:04 AM [facility] GFR ESTIMATE >90 >90 ML/MIN/1.7 3 M2 10/13/2024 10:46 AM [facility] Comment: NOTE: eGFR is not calculated for patients <18 years of age or gender unknown. This is an estimated GFR calculation using the new CKD EPI creatinine equation without race and so does not require a correction factor for race. This estimated GFR should not be used for calculating drug doses. CORRECTED ON 10/13 AT 1046: PREVIOUSLY REPORTED >90 NOTE: eGFR is not calculated for patients <18 years of age. This is an estimated GFR calculation using the new CKD EPI creatinine equation without race and so does not require a correction factor for race. This estimated GFR should not be used for calculating drug doses. 10/13/2024 9:26 AM CDT Paresh Silva DO LABORATORY Edited Result - Final [facility] [address] [place] [id number], * (ABNORMAL) CBC W/DIFF AUTOMATED (10/13/2024 9:26 AM CDT) WBC 4.01(L) 4.4 - 11.0 x10'3/uL 10/13/2024 10:20 AM CDT [facility] RBC 4.43(L) 4.50 - 5.10 x10'6/uL 10/13/2024 10:20 AM CDT [facility] HGB 13.6 12.3 - 15.3 G/DL 10/13/2024 10:20 AM CDT [facility] HCT 39.8 35.9 - 44.6 % 10/13/2024 10:20 AM CDT [facility] MCV 89.8 80.0 - 96.0 FL 10/13/2024 10:20 AM CDT [facility] MCH 30.7 25.3 - 30.9 PG 10/13/2024 10:20 AM CDT [facility] MCHC 34.2(H) 31.0 - 34.1 G/DL 10/13/2024 10:20 AM CDT [facility] RDW 14.4 12.4 - 15.1 % 10/13/2024 10:20 AM CDT [facility] PLT 162 151 - 353 x10'3/uL 10/13/2024 10:20 AM CDT [facility] MPV 9.8 9.6 - 12.0 FL 10/13/2024 10:20 AM CDT [facility] SEG NEUTROPHILS 61 42 - 72 % 10:22 AM CDT [facility] LYMPHOCYTES 25 15.8 - 45.0 % 10/13/2024 10:22 AM CDT [facility] MONOCYTES 7 5.7 - 12.5 % 10/13/2024 10:22 AM CDT [facility] EOSINOPHILS 7(H) 0 - 5.6 % 10/13/2024 10:22 AM T [facility] ABS. NEUTROPHILS 2.45 1.40 - 6.00 x10'3/uL 10/13/2024 10:22 AM CDT [facility] ABS. LYMPHOCYTES 1.00 0.80 - 4.70 x10'3/uL 10/13/2024 10:22 AM T [facility] PLT MORPH. NORMAL 10/13/2024 10:22 AM CDT [facility] RBC MORPHOLOGY NORMAL 10/13/2024 10:22 AM T [facility] WBC MORPHOLOGY NORMAL 10/13/2024 10:22 AM T [facility] 10/13/2024 9:26 AM CDT us Paresh Silva DO LABORATORY Final Result [facility] [address] [place] [address], [place] [phone] * LIPASE (10/13/2024 9:26 AM CDT) LIPASE 16 16 - 77 UNITS/L 10/13/2024 10:04 AM CDT [facility] 10/13/2024 9:26 AM CDT us Paresh Silva DO LABORATORY Final Result Performing Organization Address [facility]/ZIP Co de Phone Number [facility] [address] [place] [address], * CORONAVIRUS (COVID-19) MOLECULAR (10/13/2024 9:22 AM CDT) Pathologist [facility] CORONAVIRUS SARS COV 2 RNA NEGATIVE NEGATIVE 10/13/2024 9:59 AM CDT [facility] Comment: NEGATIVE RESULTS DO NOT RULE OUT COVID 19 AND SHOULD NOT BE USED THE SOLE BASIS FOR TREATMENT OR PATIENT MANAGEMENT DECISIONS, INCLUDING INFECTION CONTROL DECISIONS. NEGATIVE RESULTS SHOULD BE CONSIDERED IN THE CONTEXT OF A PATIENT'S RECENT EXPOSURES, HISTORY AND THE PRESENCE OF CLINICAL SIGNS AND SYMPTOMS CONSISTENT WITH COVID 19. THE ID NOW COVID-19 2.0 TEST HAS BEEN AUTHORIZED BY THE FDA UNDER EAU FOR USE BY AUTHORIZED LABORATORIES. PERFORMED BY NUCLEIC ACID AMPLIFICATION FOR MOLECULAR QUALITATIVE DETECTION OF SARS-COV-2. SPECIMEN TYPE NASAL 10/13/2024 9:25 AM CDT [facility] NASOPHARYNGEAL SWAB / Unknown 10/13/2024 9:22 AM CDT us Paresh Silva DO MICROBIOLOGY - GENERAL ORDERAB LES Final Result Performing Organization Address [facility]/ZIP Co de Phone Number [facility] [address] [place] [address], [place] [phone] * INFLUENZA A & B (10/13/2024 9:22 AM CDT) Pathologist [facility] SPECIMEN TYPE NASOPHARYNGEAL SWAB 10/13/2024 9:38 AM CDT [facility] INFLUENZA A NEGATIVE NEGATIVE 10/13/2024 10:23 AM CDT [facility] INFLUENZA B NEGATIVE NEGATIVE 10/13/2024 10:23 AM CDT [facility] NASAL STRUCTURE / Unknown 10/13/2024 9:22 AM CDT Paresh Silva DO MICROBIOLOGY - GENERAL ORDERAB LES Final Result [facility] [address] [place] [address], * PAP SMEAR (07/24/2020) 07/24/2020 Documents Scanned SCANNING Final Result [facility] ONBASE from Last 3 Months or Most Recently Relevant to Health Maintenance Insurance [facility] Care Teams Fitness Technician Relationship Specialty [place] [address] [place] [address] PCP - General INTERNAL MEDICINE 06/05/24
--- OUTSIDE RECORDS SUMMARY | 2024-10-25 00:17 | XMS_ITS | Clinical Summary ---
Author Organization [facility] Address [address] [facility] [address] [place] [address] Phone Care Team Providers Care Hot Mill Worker Name Role Phone Rosalinda Pryor MD Primary Care Provider [phone] Allergies Active Allergy Reactions Criticality Noted Date Comments Cefprozil Other (See comments) Low Patient's mother says she has had penicillin in past and has tolerated it. Oscar Meng, PharmD (09/21/2021) Medications PROAIR HFA 90 mcg/actuation inhaler 7 Active aspirin 81 mg enteric coated tablet Take 1 tablet (81 mg total) by mouth daily 30 tablet 11 2 Active ferrous sulfate 325 mg (65 mg of elemental iron) tabletIndicatio ns:Iron Deficiency Anemia Take 1 tablet (325 mg total) by mouth daily with breakfast 90 tablet 3 2 Active 28 mg iron- 800 mcg tablet TAKE 1 TABLET BY MOUTH EVERY DAY 90 tablet 3 2 Active acetaminophen (TYLENOL) 325 mg tablet Take 650 mg by mouth every 6 (six) hours as needed for pain Active ibuprofen (ADVIL,MOTRIN) 600 mg tabletIndicatio ns:Cramps Take 1 tablet (600 mg total) by mouth every 6 (six) hours 60 tablet 2 Active NIFEdipine (PROCARDIA XL/ADALAT CC) 90 mg 24 hr tablet Take 1 tablet (90 mg total) by mouth daily 30 tablet 11 2 Active labetaloL (NORMODYNE,ORTIZ DATE) 200 mg tablet Take 1 tablet (200 mg total) by mouth 2 (two) times a day 60 tablet 11 2 Active acyclovir (ZOVIRAX) 800 mg tablet TAKE 1 TABLET BY MOUTH 2 TIMES A DAY. 60 tablet 3 Active Active Problems Problem Noted Date Diagnosed Date Genital herpes 02/08/2017 Overview (09/09/2021): Valtrex 36 weeks BMI 40.0-44.9, adult 02/08/2017 Overview (06/08/2021): [x] baby ASA 81mg [x] Specialized Anatomy US at 18wks [] NST weekly @ 34wks [] growth US in the 3rd trimester [] Delivery at 39 weeks Common migraine with intractable migraine 2014 Overview (07/08/2016): Common migraine w/o aura, intractable Resolved Problems Problem Noted Date Diagnosed Date Resolved Date care following delivery 09/22/2021 11/11/2021 Overview (09/25/2021): # ID: Afebrile. No signs/symptoms of infection. #COVID-19: Test not indicated # Heme: EBL 700mL. No symptoms acute blood loss anemia. Hgb stable. # CV/Pulm: Pre-eclampsia with severe features - s/p 24h mag. Blood pressures remained elevated today. Increased nifedipine 60mg (09/23) > increased to 90 mg (09/24). CBC/CMP wnl, UPC 0.17. # GI/: Tolerating PO. Voiding spontaneously. # Pain: Controlled with above regimen. # Post DVT prophylaxis: The patient has the following MAJOR risk factors BMI >/= 40 and the following MINOR risk factors delivery and preeclampsia. enoxaparin 40 mg daily to be ordered for VTE prophylaxis. # MOC: Undecided # MOF: Urine drug screen not indicated. Patient informed of results: N/A. # COVID Vaccination Status: Previously received # Disposition: Follow up task not sent. Desires discharge home today. Enrolled in home BP monitoring. Preeclampsia complicating hypertension 09/21/2021 11/11/2021 Encounter for ultrasound 05/27/2021 11/11/2021 Overview (05/27/2021): Cardiac acvity present. FHR 158 bpm. movements visualized. Presentaon Vertex. Placenta posterior, Previa-no. Umbilical cord Cord vessels: 3 vessel cord. Cord inser on: placental inser on: normal. Amnioc fluid Amount of AF: normal amount EFW 21% Anatomy scan unable to be completed- next ultrasound sched 06/08/21 Encounter for supervision of normal in third trimester 04/26/2021 11/11/2021 Overview (08/24/2021): IOB Labs: Lab Results Component Value Date ABORH O Positive 04/12/2021 IDCOOMB Negative 04/12/2021 [id number] Nonreactive 07/06/2021 LABRPR Nonreactive 07/06/2021 RUBELIGG Reactive 04/12/2021 HEPBSAG Nonreactive 04/12/2021 [id number] 113 07/06/2021 Optional: [x] Aneuploidy screening: declines [x] Carrier testing:declines 2nd Tri Labs: [x] Anatomy ultrasound: 05/26/21 [x] CBC/1hr gtt/HIV/RPR at 24-28wks: Lab Results Component Value Date [id number] 113 07/06/2021 [id number] Nonreactive 07/06/2021 LABRPR Nonreactive 07/06/2021 [x] Flu Shot (Dec-June) [x] Tdap (27-36wks) 07/23/21 3rd Tri Labs: [] GBS No results found for: GBS Anembryonic 02/01/20182020 Overview (02/01/2018): 02/01/18 repeat formal US confirms gestational sac w/o pole. Has appt w/Dr. Kohli 02/08/18. Immunizations Immunization Administration Dates Next Due DTaP 02/11/2012, 8,10/10/1995,03/08,1993 DTaP / IPV 06/05/1997, 5,03/08/1994,12/07 HPV, Quadrivalent 11/23/2007,11/19/2007,07/23/19 08 HPV, Unspecified 04/03/2012,04/03/2012, 3 Hep A, Pediatric 11/23/2007,05/21/2007 Hep A, Unspecified 11/23/2007,05/21/2007 Hep B, Adolescent or Pediatric 05/31/1994,1993,1993 Hib (PRP-OMP) 05/31/1994,03/08/1994,1993 IPV 06/05/1997, 5,03/08/1994,12/07 Influenza, Quadrivalent, Spl it, Preservative Free, Intramuscular 03/08/2021,03/25/2019,01/18/2018 MMR 09/25/2021(Deferred: No longer needed - Rubella Immune, vaccine not required),06/05/1997,05/31/1994 Meningococcal MCV4P (Menactra) 05/21/2007 Tdap 07/29/2021,03/25/2019,05/21/2007 Surgical History Surgery Date Site/Laterality Comments FINGER SURGERY Right REDUCTION MAMMAPLASTY 04/03/2018 - 04/02/2019 Medical History Medical History Date Comments Heart murmur Heart murmur Urinary tract infection UTI - Ur inary tract infection Bronchitis Genital herpes Migraines Preeclampsia complicating hypertension 09/21/2021 Social History Tobacco Use Types Packs/Day Years Used Date Smoking Tobacco: Every Day Cigarettes Smokeless Tobacco: Never Alcohol Use Standard Drinks/Week Comments Yes 0 (1 standard drink = 0.6 oz pur e alcohol) Social Connection and Isolat ion Panel [NHANES] Answer Date Recorded In a typical week, how many times do you talk on the phone with family, friends, or neighbors? More than three times a week 09/25/2021 How often do you get togethe r with friends or relatives? More than three times a week 09/25/2021 How often do you attend chur ch or episcopalian services? Never 09/25/2021 Do you belong to any clubs o r organizations such as judaism groups, unions, fraternal or athletic groups, or school groups? No 09/25/2021 How often do you attend meet ings of the clubs or organizations you belong to? Never 09/25/2021 Are you , , di vorced, , never , or living with a partner? 09/25/2021 AUDIT-C Answer Date Recorded Q1: How often do you have a drink containing alc ohol? Never 09/18/2021 Average Number of Drinks Not on file 022 Q3: How often do you have si x or more drinks on one occasion? Never 09/18/2021 Overall Financial Resource Strain (CARDIA) Answe r Date Recorded How hard is it for you to pa y for the very basics like food, housing, medical care, and heating? Not very hard 09/25/2021 Hunger Vital Sign Answer Date Recorded Within the past 12 months, y ou worried that your food would run out before you got the money to buy more. Never true 09/26/19 22 Within the past 12 months, t he food you bought just didn't last and you didn't have money to get more. Never true 09/25/2021 PRAPARE - Transportation Answer Date Re corded In the past 12 months, has l ack of transportation kept you from medical appointments or from getting medications? No 09/02 In the past 12 months, has l ack of transportation kept you from meetings, work, or from getting things needed for daily living? No 09/25/2021 Housing Stability Vital Sign Answer Timbo e Recorded In the last 12 months, was t here a time when you were not able to pay the mortgage or rent on time? No 09/25/2021 In the last 12 months, how many places have you lived? 1 09/25/2021 In the last 12 months, was t here a time when you did not have a steady place to sleep or slept in a halfway (including now)? No 09/25/2021 Grandy Depression Scale Answer Date Recorded Grandy Depression Scale Total 6 10/08/2021 The thought of harming myself has occurred to me . 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 Not on file Not on file Not on file Obstetrics History Para Term AB IAB SAB Ectopic Multiple Livin g Live Births 2 1 1 0 1 0 1 0 0 1 1 Date Outcome GA Total Labor Labor/2nd/3rd Weight Sex Type Anes PTL Ruby A1 A5 Name Clin 2017 SAB med 2021 Term 37w 0d 0h 01m 0h 01m 2.935 kg (6 lb 7.5 oz) M CS-LT ranv Epidur al N Livin g 1 6 MARYLOU GONCALVES RA, Esteban Mijares MD Complications:Failure to Pro koko in First Stage, Intolerance Delivery Location:[facility] ([facility] L AND D PROCEDURE) Last Filed Vital Signs Vital Sign Reading Time Taken Comments Blood Pressure 138/78 11/11/2021 9:57 AM CDT Pulse 74 09/25/2021 11:15 AM CDT Temperature 36.7 C (98 F) 09/25/2021 11:15 AM CDT Respiratory Rate 18 09/25/2021 11:15 AM CDT Oxygen Saturation 100% 09/25/2021 11:15 AM CDT Inhaled Oxygen Concentration - - Weight 88.7 kg (195 lb 9.6 oz) 11/11/2021 9:57 A M CDT Height 149.9 cm (4' 11.02) 11/11/2021 9:57 AM C DT Body Mass Index 39.48 11/11/2021 9:57 AM CDT Plan of Treatment Health Maintenance Due Date Last Done Comments Hepatitis C Screening 1993 Varicella Vaccines (1 of 2 - 13+ 2-dose series) 2006 Pneumococcal vaccine <65 (1 of 2 - PCV) 2012 Cervical Cancer Screening 07/24/2021 07/24/2020 Regular Well Visit/Exam 18-64 07/24/2021, 03/22/2018, 02/08/2017 Depression Screening 10/08/2022 10/08/2021 Covid-19 Vaccine (3 2023-2 5 season) 2023 01/26/2021, 10/19/2020 Influenza Vaccine (#1) 2024 , 03/25/2019, 01/18/2018 DTaP/Tdap/Td Vaccine (10 - T d or Tdap) 07/30/2031 07/29/2021, 03/25/2019, 02/11/2012, Additional history exists Hepatitis B Screening Completed 05/31/1994 , 1993, 1993 HPV Vaccines Completed 04/03/2012, 04/2012, 04/03/2012, Additional history exists Procedures Procedure Name Priority Date/Time Associated Diagnosis Comments PAP WITH REFLEX TO HIGH RISK HPV Routine 07/24/2020 1:24 PM CDT Encounter for gynecological examination (general) (routine) with abnormal findings from Last 3 Months or Most Recently Relevant to Health Maintenance Results * Pap with reflex to High Risk HPV (07/24/2020 1:24 PM CDT) Swab (Pap test) 07/24/2020 1 :24 PM CDT 07/27/2020 2:44 PM CDT Narrative PATHOLOGY [facility] - 07/28/2020 4:23 PM CDT [facility] results best viewed via link to PDF [address] [address] Tele: Helene Hill MD - Master Control Engineer CYTOLOGY REPORT Patient Name: APPLE GUIDRY Address: [address] [place] [address] Gender: F : 1995 (Age: 25) Service: Laboratory Location: Lab [facility] #: [id number] Patient Type: [facility] Lab Taken: 07/24/2020 Reported: 07/28/2020 Physician(s): Jennyfer Rosales, RN, FRUIT CANNER FINAL DIAGNOSIS: Specimen Type: - ThinPrep Pap w/ reflex HPV Statement of Specimen Adequacy: Source: Cervical/Endocervical - Satisfactory for interpretation - Endocervical /Transformation Zone component present - Case screened using computer assisted imaging technology and manually re- screened by a v belt skiver. General Categorization: - Negative for intraepithelial lesion or malignancy Interpretation: - Shift in kyler suggestive of Bacterial Vaginosis alld07/28/2020 16:23 HELEN Barboza(ASCP)JOSIAH Report Reviewed and Electronically Signed By HLEEN Barboza(ASCP)JOSIAH Clerical Data Follow A; G0145 REPORT IMAGES AND/OR SCANNED DOCUMENTS ONLY VIEWABLE IN PDF FORMAT The Pap test is a screening test used to aid in the detection of cervical cancer and its precursors. It should not be the sole means by which malignant and premalignant lesions are diagnosed. Both false negative and false positive results may occur. It also has poor sensitivity for the detection of endometrial lesions and should not be used to evaluate suspected endometrial abnormalities. For these reasons it is most important to obtain Pap tests at regular intervals, as recommended by your physician or nurse practitioner. Jennyfer Rosales NP LAB CYTOLOGY ORDERABLES Nikky bella Result PATHOLOGY [facility] Laboratory Receiving [address] [place], [place] [id number] from Last 3 Months or Most Recently Relevant to Health Maintenance Insurance [place] [employer] [address] [place] [place] [address] [employer] OOS Advance Directives For more information, please contact: [phone] * Full Code (Latest Code Status on File) Date Activated Date Inactivated Comments 09/22/2021 1:41 PM 09/25/2021 8:11 PM * Full Code Date Activated Date Inactivated Comments 09/21/2021 11:45 AM 09/22/2021 1:41 PM Full CPR in case of cardiopulmonary arrest Care Teams Hot Mill Worker Relationship Specialty Start [place] [address] [address] [address] PCP - General Internal Medicine 07/31/20
--- OUTSIDE RECORDS SUMMARY | 2024-10-25 00:17 | XMS_ITS | Encounter Summary ---
Author Organization [facility] Address [address] [place] [address] Care Team Providers Care Junior Copywriter Name Role Phone Roxy See PA-C Primary Care Provider [phone] Anjana Blanca MD Primary Care Provider [phone] Encounter Details Date Type Department Care Team (Late st Contact Info) Description 09/05/2023 [email or web address] Message [facility] Family & Internal Medicine [address] [address] Roxy See PA-C [facility] [place] [address] Medication Social History Tobacco Use Types Packs/Day Years Used Date Smoking Tobacco: Former Cigarettes 0.3 10 1 05/28/2012 - 03/27/2023 Passive Smoke Exposure: Past Smokeless Tobacco: Never Comments:Stopped smoking. Alcohol Use Standard Drinks/Week Comments Yes 0 (1 standard drink = 0.6 oz pur e alcohol) occasionally AUDIT-C Answer Date Recorded Q1: How often do you have a drink containing alc ohol? Monthly or less 03/11/2020 Q2: How many drinks containi ng alcohol do you have on a typical day when you are drinking? 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 documented in this encounter Plan of Treatment Not on file documented as of this encounter Visit Diagnoses Not on filedocumented in this encounter Additional Health Concerns Infection Onset Date Last Indicated Resolved Time Respiratory Rule Out 10/13/2024 10/13/2024 025 10:23 AM CDT COVID-19 Rule Out 10/13/2024 10/13/2024 10/13/2024 9:59 AM CDT Assessment Noted Time PHQ-9 Depression Total Score: 0 01/28/20 22 7:04 AM CDT documented as of this encounter Care Teams Junior Copywriter Relationship Specialty Start Date End Date Roxy See PA-C PCP - General PHYSICIAN CLINICAL LABORATORY TECHNOLOGIST 07/17/23 06/04/24 [place] [id number] [address] PCP - General INTERNAL MEDICINE 06/05/24 documented as of this encounter
--- OUTSIDE RECORDS SUMMARY | 2024-10-25 00:17 | XMS_ITS | Encounter Summary ---
Author Organization [facility] Address [address] [place] [address] Care Team Providers Care Welder Manufacture Name Role Phone Roxy See PA-C Primary Care Provider [phone] Anjana Blanca MD Primary Care Provider [phone] Encounter Details Date Type Department Care Team (Late st Contact Info) Description 08/29/2023 Given Goodst Message Enc [facility] Family Medicine - Pall Mall [address] [facility], [address] [place] [id number] [place] [address] [place] [address] Blood Work Results Social History Tobacco Use Types Packs/Day [...] Sex Assigned at Female 04/22/2024 9:29 AM ROUGE SIFTER AND MILLER Legal Sex Female 4:53 PM CDT Gender [...] Time PHQ-9 Depression Total Score: 0 01/28/20 7:04 AM CDT documented as of this encounter Care Teams Welder Manufacture Relationship Specialty Start Date End Date Roxy See PA-C PCP - General PHYSICIAN YOUTH NUTRITIONAL MONITOR 07/17/23 06/04/24 [place] [id number] [address] PCP - General INTERNAL MEDICINE 06/05/24 documented as of this encounter
--- OUTSIDE RECORDS SUMMARY | 2024-10-25 00:17 | XMS_ITS | Referral Summary ---
Author Organization [facility] Address [address] [facility] [address] [place] [address] Phone Care Team Providers Care Livestock Slaughterer Name Role Phone Rosalinda Pryor MD Primary Care Provider [phone] Allergies Active Allergy Reactions Criticality Noted Date [...] ABORH O Positive 04/12/2021 IDCOOMB Negative 04/12/2021 [id number] Nonreactive 07/06/2021 LABRPR Nonreactive 07/06/2021 RUBELIGG Reactive 04/12/2021 HEPBSAG Nonreactive 04/12/2021 [id number] 113 07/06/2021 Optional: [x] Aneuploidy screening: declines [x] Carrier testing:declines 2nd Tri Labs: [x] Anatomy ultrasound: 05/26/21 [x] CBC/1hr gtt/HIV/RPR at 24-28wks: Lab Results Component Value Date [id number] 113 07/06/2021 [id number] Nonreactive 07/06/2021 LABRPR Nonreactive 07/06/2021 [x] Flu [...] required),06/05/1997,05/31/1994 Meningococcal MCV4P (Menactra) 05/21/2007 Tdap 07/29/2021,03/25/2019,05/21/2007 Social History Tobacco Use Types Packs/Day Years [...] 09/25/2021 How often do you attend chur or confucianist services? Never 09/25/2021 Do you belong to any clubs o r organizations such as presybeterian groups, unions, fraternal or athletic groups, or [...] place to sleep or slept in a care home (including now)? No 09/25/2021 [place] Depression Scale Answer Date Recorded [place] Depression Scale Total 6 10/08/2021 The thought [...] file Not on file Not on file Last Filed Vital Signs [...] 11/11/2021 9:57 AM CDT Plan of Treatment Not on file Procedures Procedure Name Priority Date/Time Associated Diagnosis [...] CDT 07/27/2020 2:44 PM CDT Narrative PATHOLOGY [facility] - 07/28/2020 4:23 PM CDT [facility] results best viewed via link to PDF [address] [address] Tele: Helene Hill MD - Laundry Laborer CYTOLOGY REPORT Patient Name: APPLE GUIDRY Address: [address] [place] [address] Gender: F : 1995 (Age: 25) Service: Laboratory Location: Lab [facility] #: [id number] Patient Type: [facility] Lab Taken: 07/24/2020 Reported: 07/28/2020 Physician(s): Jennyfer Rosales, RN, DAYCARE ASSISTANT FINAL DIAGNOSIS: Specimen Type: - ThinPrep Pap w/ reflex HPV Statement of Specimen Adequacy: Source: Cervical/Endocervical - Satisfactory for interpretation - Endocervical /Transformation Zone component present - Case screened using computer assisted imaging technology and manually re- screened by a paper cleaner. General Categorization: - Negative for intraepithelial lesion or malignancy Interpretation: - Shift in kyler suggestive of Bacterial Vaginosis all07/28/2020 16:23 HELEN Barboza(ASCP)JOSIAH Report Reviewed and Electronically Signed By HELEN Barboza(ASCP)JOSIAH Clerical Data Follow A; [id number] REPORT [...] recommended by your physician or nurse practitioner. us Jennyfer Rosales NP LAB CYTOLOGY ORDERABLES Nikky bella Result PATHOLOGY [facility] Laboratory Receiving [address] [place] [address] from Last 3 Months or Most Recently Relevant to Health Maintenance Insurance [facility] OOS [employer] ACCESS OOS [employer] OOS Advance Directives For more information, please contact: [phone] * Full Code (Latest Code Status on File) Date Activated Date Inactivated Comments 09/22/2021 1:41 PM 09/25/2021 8:11 PM * Full Code Date Activated Date Inactivated Comments 09/21/2021 11:45 AM 09/22/2021 1:41 PM Full CPR in case of cardiopulmonary arrest Care Teams Livestock Slaughterer Relationship Specialty [place] [address] [facility] [address] [address] PCP - General Internal Medicine 07/31/20
--- OUTSIDE RECORDS SUMMARY | 2024-10-25 00:17 | XMS_ITS | Clinical Summary ---
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 Gender Identity Not on file Sexual Orientation Not on file Plan of Treatment Health Maintenance Due Date Last Done Comments Hepatitis C Virus (HCV) Screening 1993 TdaP Immunization 1993 Human Papillomavirus (HPV) Immunization (1 - 3-dose series) 2008 Hepatitis B Immunization (1 of 3 - 19+ 3-dose series) 2012 Pap Smear 2014 Cervical Cancer Screening (CCS) 2023 HPV/Cotest 2023 SARS-COV-2 Immunization ( season) 2023 01/26/2021 Influenza Immunization (#1) 2024 Respiratory Syncytial Virus (RSV) Immunization (Adult) (1 - 1-dose 75+ series) 2068 Meningococcal Immunization (ACWY) Aged Out No longer eligible based on patient's age to complete this topic Pneumococcal Immunization Combined Aged Out No longer eligible based on patient's age to complete this topic Rotavirus Immunization Aged Out No lo nger eligible based on patient's age to complete this topic
--- OUTSIDE RECORDS SUMMARY | 2024-10-25 00:17 | XMS_ITS | Encounter Summary ---
Author Organization [facility] Address [address] [place] [address] Care Team Providers Care Woolen Tester Name Role Phone Jayant Rosado DO Primary Care Provider [phone] Rosalinda Pryor MD Primary Care Provider [phone] Yamil Guthrie MD Primary Care Pr israeler Ramila Gunn NP Primary Care Provider [phone] Roxy SeeC Primary Care Provider [phone] Anjana Blanca MD Primary Care Provider [phone] Encounter Details Date Type Department Care Team (Late st Contact Info) Description 02/04/2017 [place] [address] , Generic Conversion, Social History Tobacco Use Types Packs/Day Years Used Date Smoking Tobacco: Never Assessed Comments Unknown Sex and Gender Information Value Date Recorded Sex Assigned at Female 04/22/2024 9:29 AM STAFFING COORDINATOR Legal Sex Female 4:53 PM CDT Gender Identity Female 01/26/2022 9:57 AM CDT Sexual Orientation Not on file documented as of this encounter Plan of Treatment Not on file documented as of this encounter Visit Diagnoses Not on filedocumented in this encounter Additional Health Concerns Infection Onset Date Last Indicated Resolved Time COVID-19 Rule Out 12/05/2019 12/05/2019 12/06/2019 12:10 PM CDT Respiratory Rule Out 10/13/2024 10/13/20242 025 10:23 AM CDT COVID-19 Rule Out 10/13/2024 10/13/2024 10/13/2024 9:59 AM CDT documented as of this encounter Care Teams Woolen Tester Relationship Specialty Start Date End Date Jayant Rosado DO [address] [place] [address] PCP - General 01/13/15 03/06/18 Rosalinda Pryor MD [address] [place] [address] PCP - General INTERNAL MEDICINE 03/07/18 07/07/22 Yamil Guthrie MD [address] [place] [address] PCP - General FAMILY PRACTICE 07/08/22 07/11/22 Ramila Reveles, JACK WINDER [address] [place] [address] PCP - General Nurse Practitioner Family 07/12/2207/02 Roxy See PA-C [address] [place] [address] PCP - General PHYSICIAN SCIENCE CONSULTANT 07/17/23 06/04/24 [place] [address] [place] [address] PCP - General INTERNAL MEDICINE 06/05/24 documented as of this encounter
[2024-10-25] MEDS: ACETAMINOPHEN 500 MG TABLET 1000 MG PO (09:30)
[2024-10-25] MEDS: LACTATED RINGERS 1,000 ML 30 ML IV CONT (09:30)
[2024-10-25 09:45] VITALS: BP 140/87; PULSE 98; RESP 16; TEMP 36.9; O2SAT 98
--- NOTE | 2024-10-25 11:12 | PM.IMHP ---
H&P: HPI History of Present Illness Date/Time: 10/25/24 11:12 Chief Complaint: Heavy periods Narrative: Patient with history of menorrhagia. Symptoms resistant to oral contraceptive pills and IUD. She has opted for endometrial ablation. Endometrial biopsy benign. Pelvic ultrasound showed normal uterus. Review of Systems Review of Systems: All systems reviewed & are unremarkable except as noted in HPI and below Cardiovascular: Cardiovascular: Reports no additional cardiovascular complaints, Denies chest pain and Denies dyspnea Respiratory: Respiratory: Reports no additional respiratory complaints and Denies dyspnea Gastrointestinal: Gastrointestinal: Reports abdominal pain, Denies change in bowel habits, Denies diarrhea, Denies nausea and Denies vomiting Genitourinary: Genitourinary: Reports pelvic pain Musculoskeletal: Musculoskeletal: Reports back pain Integumentary/Breasts: Skin/Breast: Reports system reviewed and no additional complaints, except as docu Neurologic: Reports system reviewed and no additional complaints, except as documented PMFSH Past Medical History Medical History HSV-2 (herpes simplex virus 2) infection Hypertension Anxiety Surgical History Surgical History History of section Hx of breast reduction, elective Social History Social History Smoking status: Current every day smoker Alcohol intake: current Alcohol use details: Rarely Substance use: never Lack of Transportation: No Lack of Food: Never True Current Housing: I Have Housing Concerned About Future Housing: No Difficulty Paying Gas/Electric Bills: No Difficulty Paying for Meds: No Currently Unemployed: No Education: Associate Degree Difficulty w/ Childcare or Family Care: No Living arrangements: with family Occupation/Education: occupation Gender identity (if verbalized by the patient): Female Sexual Orientation (if Verbalized by the Patient): Straight or Heterosexual Spiritual care concerns: No Meds Home Medications and Allergies Home Medications ?Medication ?Instructions ?Recorded ?Confirmed ?Type lisinopril 10 mg tablet 10 mg PO DAILY 11/15/22 10/17/24 History ascorbic acid (vitamin C) 100 mg 100 mg PO DAILY 10/17/24 10/17/24 History tablet (Vitamin C) ergocalciferol (vitamin D2) 1,250 1,250 mcg PO WEEKLY 10/17/24 10/17/24 History mcg (50,000 unit) capsule ferrous sulfate 325 mg (65 mg 325 mg PO DAILY 10/17/24 10/17/24 History iron) tablet Allergies Allergy/AdvReac Type Severity Reaction Status Date / Time cefprozil Allergy Unknown Unknown Verified 10/17/24 14:54 Exam Const: Orientation/consciousness: oriented to person and oriented to place HENMT: Head: normal to inspection Eyes: General: appearance normal, both eyes and all related structures Resp: Effort & Inspection: normal respiratory effort Auscultation: clear to auscultation bilaterally Cardio: Rate: regular rate Rhythm: regular rhythm GI: Inspection: normal to inspection GI Palp: No Rebound tenderness present Neuro: General: oriented to person and oriented to place Cognition (Neuro): normal cognition Extrem: General: normal to inspection Psych: Appearance: grossly normal and well kempt Assessment and Plan Assessment and plan (1) Menorrhagia: Code(s): N92.0 - Excessive and frequent menstruation with regular cycle Status: Acute Assessment and Plan: Patient has opted for alysia endometrial ablation.Will perform endometrial ablation with hysteroscopy and possible dilation and curettage.
--- NOTE | 2024-10-25 11:15 | WPDHPUPDATE1 ---
History and Physical Update Update Date/Time: 10/25/24 11:15 History and Physical has been reviewed, including an updated exam of the patient. There are NO changes in the patient's condition. Risks, benefits, and alternatives have been discussed and questions answered. Patient agrees to proceed with procedure.
[2024-10-25 11:32] LABS: Hematocrit 33.9 % (37.0-47.0); Hemoglobin 11.5 g/dL (12.0-15.0)
--- NOTE | 2024-10-25 11:55 | WPDANESEPPF ---
Anes - Initial Pre Proc Eval Procedure: Operation Date: 10/25/24 11:00 Proposed Procedures p Hysteroscopy Dilation and Curettage with Marly Endometrial Ablation - Dax Cowart MD Date/Time: 10/25/24 11:55 Surgeon: Dax Cowart MD Pre Op Diagnosis: menorrhagia, anemia Patient Data Age: 29 Gender: F Height: 1.5 m Weight: 90.72 kg Allergies Allergy/AdvReac Type Severity Reaction Status Date / Time cefprozil Allergy Unknown Unknown Verified 10/17/24 14:54 Home Medications ?Medication ?Instructions ?Recorded ?Confirmed ?Type lisinopril 10 mg tablet 10 mg PO DAILY 11/15/22 10/17/24 History ascorbic acid (vitamin C) 100 mg 100 mg PO DAILY 10/17/24 10/17/24 History tablet (Vitamin C) ergocalciferol (vitamin D2) 1,250 1,250 mcg PO WEEKLY 10/17/24 10/17/24 History mcg (50,000 unit) capsule ferrous sulfate 325 mg (65 mg 325 mg PO DAILY 10/17/24 10/17/24 History iron) tablet Laboratory Tests 10/25/24 11:15 Hgb 11.5 L g/dL (12.0-15.0) Hct 33.9 L % (37.0-47.0) Patient hx anesthesia problems: none Family hx anesthesia problems: none Results Review: All pre-operative results and documents have been reviewed as part of the pre-operative evaluation. [facility] Past Medical History Medical History HSV-2 (herpes simplex virus 2) infection Hypertension Anxiety Surgical History Surgical History History of section Hx of breast reduction, elective Social History Social History Smoking status: Current every day smoker Alcohol intake: current Alcohol use details: Rarely Substance use: never Lack of Transportation: No Lack of Food: Never True Current Housing: I Have Housing Concerned About Future Housing: No Difficulty Paying Gas/Electric Bills: No Difficulty Paying for Meds: No Currently Unemployed: No Education: Associate Degree Difficulty w/ Childcare or Family Care: No Living arrangements: with family Occupation/Education: occupation Gender identity (if verbalized by the patient): Female Sexual Orientation (if Verbalized by the Patient): Straight or Heterosexual Spiritual care concerns: No Anes - Eval Final PreProcedure Day of Procedure 10/25/24 11:55 Patient weight: morbidly obese Heart: regular rate and rhythm Lungs: clear to auscultation Airway: Mallampati scale class II Neurological: alert and oriented Last oral intake: >/= 8 hours ASA classification: III Emergent: no Anesthetic plan: proceed Anesthesia type and monitoring: general GIVS and standard monitoring Results Review: All pre-operative results and documents have been reviewed as part of the pre-operative evaluation. Informed Consent: The patient's anesthetic plan and its attendant risks and benefits were discussed with the patient/family/POA. Questions were solicited and answers provided to the satisfaction of the patient/family/POA.
[2024-10-25] MEDS: DOXYCYCLINE IV 100 MG in SODIUM CHLORIDE 0.9% IV 100 ML IVPB (12:00)
[2024-10-25] MEDS: LIDOCAINE 1% LOCAL INJ 10 ML VIAL INFILTRATE (12:10)
[2024-10-25] MEDS: KETOROLAC 30 MG/ML VIAL (*BKC) IV PUSH (12:19)
[2024-10-25 12:22] LABS: BEDSIDEPREGUCG Negative (Negative)
[2024-10-25 12:30] VITALS: BP 115/62; PULSE 98; RESP 14; O2SAT 99
--- NOTE | 2024-10-25 12:39 | W.PM.PROC2 ---
Procedure Note - Detailed Date of Procedure 10/25/24 Pre-op Diagnosis menorrhagia, anemia Post-op Diagnosis Same Procedure Performed Marly endometrial ablation with hysteroscopy. Surgeon Dax Cowart MD Anesthesia MAC and Local Indications Menorrhagia Findings Normal uterine cavity, uterine sound 9cm, cervix length 4 cm, uterine length 5 cm, good eschar noted after ablation Description of Procedure After informed consent was obtained patient was taken to the operating room and adequate IV sedation was administered. Attention was turned to the vagina. Speculum was inserted. Single-tooth tenaculum placed on the anterior lip of the cervix. 10cc of 1% lidocaine was injected at cervicovaginal interface at 2,5,8 and 10 position. The uterus was sounded to 9 cm. The cervix was dilated to an 8 Baker dilator. The cervical length was 4cm . The hysteroscope was inserted into the cavity. The findings were a normal uterine cavity. The hysteroscope was removed. The Marly ablation instrument was inserted into the cavity. Cavity assessment was performed and confirmed intact. The ablation was enabled. After 120 seconds the Marly stopped. The ablation instrument was removed. The hysteroscope was inserted and there was noted to be good eschar with the cavity. The hysteroscope was removed the single-tooth tenaculum was removed hemostasis was noted at the tenaculum site. Sponge count correct. The patient taken to recovery in stable condition. Estimated Blood Loss 5 Drains No Packing No Pathology None sent Complications No immediate complications Condition Stable Disposition Same day [facility] Billing Surgery - Charge Forward: Surgery Billing
[2024-10-25 13:00] VITALS: BP 122/63; PULSE 80; RESP 16
[2024-10-25 13:30] VITALS: BP 116/67; PULSE 80; RESP 18
== END 2024-10-25 13:30 | disposition home or self-care (01) ==
PROVIDERS: Anesthesiology; Visit Provider Obstetrics & Gynecology
PROC: 0U5B8ZZ Destruction of Endometrium, Via Natural or Artificial Opening Endoscopic (ICD-10-PCS; CPT 58563; principal; 2024-10-25 11:00)
DX: N92.0 Excessive and frequent menstruation with regular cycle (principal); D64.9 Anemia, unspecified; F17.210 Nicotine dependence, cigarettes, uncomplicated; E66.01 Morbid (severe) obesity due to excess calories; Z68.41 Body mass index [BMI] 40.0-44.9, adult
CPT/HCPCS: 58563; 36415; 85014; 85018; A9270; J1885; J2003; J2250; J2405; J2704; J3010; J7120

== ENCOUNTER 2024-10-31 11:35 | Emergency (ER) | payer BC, SELFPAY ==
--- NOTE | ~2024-10-31 | CT_ITS ---
EXAMINATION: CTA chest PE protocol DATE: 10/31/2024 14:56 INDICATION: Pleuritis TECHNIQUE: Computed tomography (CT) pulmonary angiogram of the chest was performed with 100 mL Omnipa que-350 intravenous contrast. Additional 3D reconstructions utilizing coronal maximum intensity proje ction (MIP) were performed. Automated exposure control and iterative reconstruction technique were em ployed. The dose-length product was 502.93 mGy-cm. COMPARISON: None FINDINGS: No pulmonary embolism. There is mosaic attenuation in the lungs with diffuse dependent predominant mi ld groundglass opacity likely related to incomplete inspiratory effort with small more lucent regions of air trapping likely related to small airway disease. Mild discoid atelectasis in the right middle lobe. No pneumonia, pulmonary edema, pleural effusion or pneumothorax. Heart size normal. No pericar dial effusion. Thoracic aorta is normal in caliber. No pathologically enlarged thoracic lymphadenopat hy. Splenomegaly measuring at least 15 cm craniocaudal length. There is a geographic region of hypoen hancement at the anterior spleen most likely related to splenic infarct. IMPRESSION: 1. Mosaic attenuation of lungs with diffuse subtle dependent groundglass opacity likely related to in complete inspiratory effort with small region of subsegmental air trapping related to small airway di sease. 2. Splenomegaly with geographic region of hypoenhancement in the anterior spleen most consistent with splenic infarct. Reviewed, dictated and finalized at location A. IMPRESSION: 1. Mosaic attenuation of lungs with diffuse subtle dependent groundglass opacit y likely related to incomplete inspiratory effort with small region of subsegme ntal air trapping related to small airway disease. 2. Splenomegaly with geographic region of hypoenhancement in the anterior splee n most consistent with splenic infarct.
--- NOTE | ~2024-10-31 | CT_ITS ---
CLINICAL INDICATION: Abdominal pain, nausea and vomiting. Postop day #5 after endometrial ablation. COMPARISON: 03/07/2023. TECHNIQUE: Multiple contiguous axial images of the abdomen and pelvis were performed following the ad ministration of with 100 mL Omnipaque-350 intravenous contrast The dose-length product (DLP) was 1139.99 mGy-cm. Automated exposure control and iterative reconstruction technique were employed. FINDINGS/OBSERVATIONS: Visualized lower thorax: Trace dependent atelectasis. The remainder of the lungs are clear. The heart is of normal size, without pericardial effusion. Small hiatal hernia is present. Liver: The liver demonstrates homogeneous enhancement and is not enlarged. Gallbladder and biliary system: The gallbladder is only minimally distended, and otherwise unremarkable. Pancreas: The pancreas enhances homogeneously without ductal dilatation. Spleen: Interval development of a wedge-shaped focus of decreased attenuation within the superior anterior alberto rder of the spleen, an interval change from 03/07/2023. Interval splenic enlargement when compared with previous examination performed in 2022. The spleen now measures 14.7 cm in longitudinal dimension (compared with 11cm on the prior examinatio n). Kidneys: The bilateral kidneys enhance symmetrically without hydronephrosis or renal calculi. Adrenal glands: Unremarkable. Gastrointestinal tract: Bowel loops are unremarkable. No free fluid is detected within the abdomen or pelvis. Appendix: The air-filled appendix is of normal caliber (axial series, images 119 through 132) Vasculature: No filling defect identified within the splenic vein, portal vein or superior mesenteric vein. Although not a CTA examination no discrete filling defect is appreciated within celiac axis or within the visualized segments of the splenic artery. Lymph nodes: No pathologically enlarged or morphologically suspicious lymph nodes within the retroperitoneum or at the root of the mesentery. Pelvic structures: The bladder is minimally distended, and otherwise unremarkable. Expected perioperative appearance of the uterus postablation, with only trace surrounding inflammator y change. Body wall and musculoskeletal: No significant degenerative disease within the lower thoracic or lumbosacral spine. IMPRESSION: Interval development of splenic enlargement with a small splenic infarction (when compared with previ ous examination performed in March of 2023). No additional abnormality is appreciated. Reviewed, dictated and finalized at location A. IMPRESSION: Interval development of splenic enlargement with a small splenic infarction (wh en compared with previous examination performed in March of 2023). No additional abnormality is appreciated.
--- OUTSIDE RECORDS SUMMARY | 2024-10-31 11:38 | XMS_ITS | Encounter Summary ---
Author Organization [facility] Address [address] [place] [address] Care Team Providers Care Turbine Room Attendant Name Role Phone Roxy See PA-C Primary Care Provider [phone] Anjana Blanca MD Primary Care Provider [phone] Encounter Details Date Type Department Care Team (Late st Contact Info) Description 08/29/2023 SecurSolutionst Message Enc [facility] Family [facility] - [place] [address] [facility], [address] [place] [id number] [place] [address] [place] [address] Blood Work Results Social History Tobacco Use [...] Sex Assigned at Female 04/22/2024 9:29 AM CASINO GAMING WORKER Legal Sex Female 4:53 PM CDT Gender [...] documented as of this encounter Care Teams Turbine Room Attendant Relationship Specialty Start Date End Date Roxy See PA-C PCP - General PHYSICIAN FRAUD PREVENTION ANALYST 07/17/23 06/04/24 [place] [address] [address] PCP - General INTERNAL MEDICINE 06/05/24 documented as of this encounter
--- OUTSIDE RECORDS SUMMARY | 2024-10-31 11:38 | XMS_ITS | Encounter Summary ---
Author Organization [facility] Address [address] [place] [address] Care Team Providers Care Ocean Export Coordinator Name Role Phone Jayant Rosado DO Primary Care Provider [phone] Rosalinda Pryor MD Primary Care Provider [phone] Yamil Guthrie MD Primary Care Pr israeler Ramila Gunn NP Primary Care Provider [phone] Roxy SeeC Primary Care Provider [phone] Anjana Blanca MD Primary Care Provider [phone] Encounter Details Date Type Department Care Team (Late st Contact Info) Description 02/04/2017 [place] [address] , Generic Conversion, Social History Tobacco Use Types Packs/Day Years Used Date Smoking Tobacco: Never Assessed Comments Unknown Sex and Gender Information Value Date Recorded Sex Assigned at Female 04/22/2024 9:29 AM SUPERVISOR ELECTROLYTIC TINNING Legal Sex Female 4:53 PM CDT Gender [...] documented as of this encounter Care Teams Ocean Export Coordinator Relationship Specialty Start Date End Date Jayant Rosado DO [address] [place] [address] PCP - General 01/13/15 03/06/18 Rosalinda Pryor MD [address] [place] [address] PCP - General INTERNAL MEDICINE 03/07/18 07/07/22 Yamil Guthrie MD [address] [place] [address] PCP - General FAMILY PRACTICE 07/08/22 07/11/22 Ramila Reveles, SAND SYSTEM OPERATOR [address] [place] [address] PCP - General Nurse Practitioner Family 07/12/2207/02 Roxy See PA-C [address] [place] [address] PCP - General PHYSICIAN LINOTYPER 07/17/23 06/04/24 [place] [address] [place] [address] PCP - General INTERNAL MEDICINE 06/05/24 documented as of this encounter
--- OUTSIDE RECORDS SUMMARY | 2024-10-31 11:38 | XMS_ITS | Encounter Summary ---
Author Organization [facility] Address [address] [place] [address] Care Team Providers Care Mothercraft Nurse Name Role Phone Roxy See PA-C Primary Care Provider [phone] Anjana Blanca MD Primary Care Provider [phone] Encounter Details Date Type Department Care Team (Late st Contact Info) Description 04/20/2024 InnoCyte Message Enc [facility] Family & Internal Medicine [facility] [id number] [place] [phone] [place] [id number] [place] [address] Urgent Social History Tobacco Use Types [...] Sex Assigned at Female 04/22/2024 9:29 AM POLISHER EYEGLASS FRAMES Legal Sex Female 4:53 PM CDT Gender Identity Female 01/26/2022 9:57 AM CDT Sexual Orientation Not on file documented as of this encounter Functional Status * Calculated C-SSRS Risk Score (Lifetime/Recent) Answer Date of Assessment Author Status No Risk Indicated 04/22/2024 9:27 AM POLISHER EYEGLASS FRAMES Alma Jerry RN Active * [place] Suicide Severity Rating Scale (Screener/Recent Self-Report) Question Answer Date of Assessment Author Status 1. Wish to be (Past 1 Month) No 04/22/2024 9:27 AM POLISHER EYEGLASS FRAMES Alma Jerry RN Activ e 2. Non-Specific Active Suicidal Thoughts (Past 1 Month) No 04/22/2024 9:27 AM POLISHER EYEGLASS FRAMES Alma Jerry RN Activ e 6. Suicidal Behavior (Lifetime) No 04/22/2024 9:27 AM POLISHER EYEGLASS FRAMES Alma Jerry RN Activ e documented as [...] Total Score: 3 04/18/19 25 1:52 PM POLISHER EYEGLASS FRAMES documented as of this encounter Care Teams Mothercraft Nurse Relationship Specialty Start Date End Date Roxy See PA-C PCP - General PHYSICIAN SANDSTONE SPLITTER 07/17/23 06/04/24 [place] [address] [place] [address] PCP - General INTERNAL MEDICINE 06/05/24 documented as of this encounter
--- OUTSIDE RECORDS SUMMARY | 2024-10-31 11:38 | XMS_ITS | Clinical Summary ---
Author Organization [facility] Address [address] [place] [address] Care Team Providers Care Fitness Studies Teacher Name Role Phone Anjana Blanca MD Primary Care Provider Allergies Active Allergy Reactions Criticality Noted Date [...] needed for Nausea. 20 tablet 5 Active metroNIDAZOLE (FLAGYL) 500 MG tablet Take 1 tablet (500 mg total) by mouth 2 (two) times daily. 5 Active sulfamethoxazole- trimethoprim (BACTRIM DS) 800-160 MG tablet Take 1 tablet by mouth every 12 (twelve) hours. 5 Active Active Problems Problem Noted Date [...] acyclovir as needed for breakout by the real estate office manager Iron deficiency anemia, unsp ecified iron deficiency anemia type 09/23/2024 Assessment & Plan (09/23/2024 8:06 AM CDT): Under care by Chiller Technician in [place] and had 3 iron infusions already. Currently on 1 iron tab with vit C daily Menorrhagia with irregular cycle 09/23/2024 Assessment & Plan (09/23/2024 8:06 AM CDT): Causing iron deficiency anemia probably Seeing real estate office manager tomorrow for consideration of ablation Patient has a child of 3 years old son On control pill Primary hypertension 06/16/2022 Assessment & Plan (09/23/2024 8:06 AM CDT): Better controlled Currently on lisinopril 30 mg daily Morbid obesity with BMI of 40.0-44.9, adult /04/2019 Wound infection 09/12/2018 Mastodynia 05/10/2018 Neck pain 05/09/2018 Muscle spasm 05/09/2018 Macromastia 05/09/2018 Chronic pain of both shoulders 05/09/2018 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[facility]) 02/01/2018 Overview (2018): Overview: 11/1/18 repeat formal US confirms gestational sac w/o pole. Has appt w/Dr. Kohli 02/08/18. Genital herpes 02/08/2017 Overview (06/10/2022): Valtrex 36 weeks BMI 40.0-44.9, adult 02/08/2017 Overview (10/30/2024): [x] baby ASA 81mg [x] Specialized Anatomy US at 18wks [] NST weekly @ 34wks [] growth US in the 3rd trimester [] Delivery at 39 weeks Common migraine with intractable migraine 2014 Overview (2018): Overview: Common migraine w/o aura, intractable Resolved Problems Problem Noted Date Diagnosed Date Resolved Date BMI 35.0-35.9,adult 02/08/2017 02/09/20 21 Encounters Date Type Department Care Team Description 10/30/2024 11:20 AM CDT Office Visit [facility] [address] [address] Robert Drievr PA Abdominal Pain (To left side-off and on x 2 weeks-was in ER on October 13-than started with fever 5 days ago and abdominal pain yesterday) 10/30/2024 Travel 10/13/2024 9:04 AM CDT - 10/13/2024 10:[address] [facility] Emergency Room [address] [place] [address] Paresh Silva DO Vomiting Discharge Disposition: Home or Self Care (Routine Discharge) 10/13/2024 Travel 09/23/2024 7:20 AM CDT Office Visit [facility] [address] [address] Anjana Blanca MD Physical (Physical for work ) 09/23/2024 Scan [facility] SRVCS Scanned, Doc Med Group [...] Sex Assigned at Female 04/22/2024 9:29 AM AS400 PROGRAMMER ANALYST Legal Sex Female 4:53 PM CDT Gender Identity Female 01/26/2022 9:57 AM CDT Sexual Orientation Not on file Last Filed Vital Signs Vital Sign Reading Time Taken Comments Blood Pressure 135/88 10/30/2024 11:14 AM CDT Pulse 93 10/30/2024 11:14 AM CDT Temperature 36.2 C (97.2 F) 10/30/2024 11:14 AM CDT Respiratory Rate 20 10/30/2024 11:14 AM CDT Oxygen Saturation 97% 10/30/2024 11:14 AM CDT Inhaled Oxygen Concentration - - Weight 92.5 kg (204 lb) 10/30/2024 11:14 AM CDT Height 149.9 cm (4' 11) 10/30/2024 11:14 AM CDT Body Mass Index 41.2 10/30/2024 11:14 AM CDT Plan of Treatment Health Maintenance [...] 11/02, 11/19/2007, Additional history exists PHQ-2 (Physician [place]) Completed 04/18/2024 Meningococcal B Vaccine Aged Out [...] COLOR (U) YELLOW 10/13/2024 9:54 AM CDT [facility] TRANSPARENCY CLEAR 10/13/2024 9:54 AM CDT [facility] SPECIFIC GRAVITY (U) 1.015 1.000 - 1.030 10/13/2024 9:54 AM CDT [facility] U PH 7.0 5.0 - 9.0 10/13/2024 9:54 AM CDT [facility] LEUKOCYTES (U) NEGATIVE NEGATIVE 10/13/2024 9:54 AM CDT [facility] NITRITES NEGATIVE NEGATIVE 10/13/2024 9:54 AM CDT [facility] PROTEIN RANDOM (U) NEGATIVE NEGATIVE 10/13/2024 9:54 AM CDT [facility] GLUCOSE (U) NEGATIVE NEGATIVE 10/13/2024 9:54 AM CDT [facility] KETONES MG/DL (U) NEGATIVE NEGATIVE 10/13/2024 9:54 AM CDT [facility] BILIRUBIN (U) NEGATIVE NEGATIVE 10/13/2024 9:54 AM CDT [facility] BLOOD (U) NEGATIVE NEGATIVE 10/13/2024 9:54 AM CDT [facility] URINE SPECIMEN OBTAINED BY CLEAN CATCH PROCEDURE / Unknown 10/13/2024 9:31 AM CDT Paresh Silva DO URINE ORDERABLES Final Result Performing Organization Address City/[facility] Co de Phone Number [facility] [address] [place] [address], [place] [phone] * TEST URINE (10/13/2024 9:31 AM CDT) URINE HCG TEST NEGATIVE NEGATIVE 10/13/2024 9:56 AM CDT [facility] Comment: VERY DILUTE URINE SPECIMENS MAY NOT CONTAIN COLUMNIST LEVELS OF HCG. IF IS STILL SUSPECTED, A SERUM HCG TEST IS RECOMMENDED. URINE SPECIMEN FROM URETHRA / Unknown 10/13/2024 9:31 AM CDT us Paresh Silva DO URINE ORDERABLES Final Result Performing Organization Address City/[facility]/ZIP Co de Phone Number [facility] [address] [place] [address], [place] [phone] * (ABNORMAL) COMPREHENSIVE METABOLIC PANEL (10/13/2024 9:26 AM CDT) GLUCOSE 81 70 - 99 MG/DL 10/13/2024 10:04 AM [facility] BUN 6(L) 7 - 18 MG/DL 10/13/2024 10:04 AM [facility] CREATININE S/P/B 0.77 0.55 - 1.02 MG/DL 10/13/2024 10:04 AM [facility] SODIUM S/P/B 141 136 - 145 MMOL/L 10/13/2024 10:04 AM [facility] POTASSIUM S/P/B 3.7 3.5 - 5.1 MMOL/L 10/13/2024 10:04 AM [facility] CHLORIDE S/P/B 103 100 - 108 MMOL/L 10/13/2024 10:04 AM [facility] CO2 30.9 21 - 32 MMOL/L 10/13/2024 10:04 AM [facility] CALCIUM S/P/B 8.7 8.5 - 10.1 MG/DL 10/13/2024 10:04 AM [facility] BILIRUBIN TOTAL S/P/B 0.7 0.2 - 1.2 MG/DL 10/13/2024 10:04 AM [facility] TOTAL PROTEIN S/P/B 7.1 6.4 - 8.2 G/DL 10/13/2024 10:04 AM [facility] ALBUMIN S/P/B 3.2(L) 3.4 - 5.0 G/DL 10/13/2024 10:04 AM [facility] AST 48(H) 15 - 37 U/L 10/13/2024 10:04 AM [facility] ALT 67(H) 14 - 55 U/L 10/13/2024 10:04 AM CDT [facility] ALKALINE PHOSPHATASE S/P/B 144(H) 50 - 136 U/L 10/13/2024 10:46 AM CDT [facility] Comment: CALLED TO AND READ BACK BY KIA FRANCO @[facility], CORRECTED ON 10/13 AT 1046: PREVIOUSLY REPORTED 4 ANION GAP 7.1 5 - 15 MMOL/L 10/13/2024 10:04 AM CDT [facility] BUN CREATININE RATIO 7.8 6 - 26 10/13/2024 10:04 AM CDT [facility] A/G RATIO 0.8(L) 1.0 - 2.0 RATIO 10/13/2024 10:04 AM CDT [facility] GFR ESTIMATE >90 >90 ML/MIN/1.7 3 M2 10/13/2024 10:46 AM CDT [facility] Comment: NOTE: eGFR is not calculated [...] calculating drug doses. 10/13/2024 9:26 AM CDT us Paresh Silva DO LABORATORY Edited Result - Final [facility] [address] [place] [address], * (ABNORMAL) CBC W/DIFF AUTOMATED (10/13/2024 9:26 AM CDT) WBC 4.01(L) 4.4 - 11.0 x10'3/uL 10/13/2024 10:20 AM CDT [facility] RBC 4.43(L) 4.50 - 5.10 x10'6/uL 10/13/2024 10:20 AM CDT [facility] HGB 13.6 12.3 - 15.3 G/DL 10/13/2024 10:20 AM CDT [facility] HCT 39.8 35.9 - 44.6 % 10/13/2024 10:20 AM CDT [facility] MCV 89.8 80.0 - 96.0 FL 10/13/2024 10:20 AM CDT [facility] MCH 30.7 25.3 - 30.9 PG 10/13/2024 10:20 AM CDT [facility] MCHC 34.2(H) 31.0 - 34.1 G/DL 10/13/2024 10:20 AM T [facility] RDW 14.4 12.4 - 15.1 % 10/13/2024 10:20 AM T [facility] PLT 162 151 - 353 x10'3/uL 10/13/2024 10:20 AM T [facility] MPV 9.8 9.6 - 12.0 FL 10/13/2024 10:20 AM CDT [facility] SEG NEUTROPHILS 61 42 - 72 % 10:22 AM T [facility] LYMPHOCYTES 25 15.8 - 45.0 % 10/13/2024 10:22 AM CDT [facility] MONOCYTES 7 5.7 - 12.5 % 10/13/2024 10:22 AM T [facility] EOSINOPHILS 7(H) 0 - 5.6 % 10/13/2024 10:22 AM CDT [facility] ABS. NEUTROPHILS 2.45 1.40 - 6.00 x10'3/uL 10/13/2024 10:22 AM CDT [facility] ABS. LYMPHOCYTES 1.00 0.80 - 4.70 x10'3/uL 10/13/2024 10:22 AM CDT [facility] PLT MORPH. NORMAL 10/13/2024 10:22 AM CDT [facility] RBC MORPHOLOGY NORMAL 10/13/2024 10:22 AM CDT [facility] WBC MORPHOLOGY NORMAL 10/13/2024 10:22 AM CDT [facility] 10/13/2024 9:26 AM CDT [facility] Shira HUNTER LABORATORY Final Result Performing Organization Address [facility]/ZIP Co de Phone Number [facility] [address] [place] [address], * LIPASE (10/13/2024 9:26 AM CDT) Pathologist [facility] LIPASE 16 16 - 77 UNITS/L 10/13/2024 10:04 AM CDT [facility] 10/13/2024 9:26 AM CDT Paresh Silva DO LABORATORY Final Result Performing Organization Address City/[facility]/ZIP Co de Phone Number [facility] [address] [place] [address], [place] [phone] * CORONAVIRUS (COVID-19) MOLECULAR (10/13/2024 9:22 AM CDT) Pathologist [facility] CORONAVIRUS SARS COV 2 RNA NEGATIVE NEGATIVE 10/13/2024 9:59 AM CDT [facility] Comment: NEGATIVE RESULTS DO [...] SPECIMEN TYPE NASAL 10/13/2024 9:25 AM CDT [facility] NASOPHARYNGEAL SWAB / Unknown 10/13/2024 9:22 AM CDT Paresh Silva DO MICROBIOLOGY - GENERAL ORDERAB LES Final Result Performing Organization Address [facility] de Phone Number [facility] [address] [place] [address], [place] [phone] * INFLUENZA A & B (10/13/2024 9:22 AM CDT) SPECIMEN TYPE NASOPHARYNGEAL SWAB 10/13/2024 9:38 AM CDT [facility] INFLUENZA A NEGATIVE NEGATIVE 10/13/2024 10:23 AM CDT [facility] INFLUENZA B NEGATIVE NEGATIVE 10/13/2024 10:23 AM CDT [facility] NASAL STRUCTURE / Unknown 10/13/2024 9:22 AM CDT Paresh Silva DO MICROBIOLOGY - GENERAL ORDERAB LES Final Result Performing Organization Address City/[facility] Co de Phone Number [facility] [address] [place] [address], [place] [phone] * PAP SMEAR (07/24/2020) 07/24/2020 us Documents Scanned SCANNING Final Result [facility] ONBASE from Last 3 Months or Most Recently Relevant to Health Maintenance Insurance [facility] Care Teams Fitness Studies Teacher Relationship Specialty [place] [address] [facility] [address] [place] [address] PCP - General INTERNAL MEDICINE 06/05/24
--- OUTSIDE RECORDS SUMMARY | 2024-10-31 11:38 | XMS_ITS | Encounter Summary ---
Author Organization [facility] Address [address] [place] [address] Care Team Providers Care Watch Inspector Name Role Phone Roxy See PA-C Primary Care Provider [phone] Anjana Blanca MD Primary Care Provider [phone] Encounter Details Date Type Department Care Team (Late st Contact Info) Description 04/19/2024 i-Nalysist Message Enc [facility] Medical Group Family & Internal Medicine [address] [address] Anjana Blanca [place] [id number] [place] [address] Test Results Social History Tobacco Use [...] Sex Assigned at Female 04/22/2024 9:29 AM BLOCK PLACER Legal Sex Female 4:53 PM CDT Gender Identity Female 01/26/2022 9:57 AM CDT Sexual Orientation Not on file documented as of this encounter Functional Status * Calculated C-SSRS Risk Score (Lifetime/Recent) Answer Date of Assessment Author Status No Risk Indicated 04/22/2024 9:27 AM BLOCK PLACER Alma Jerry RN Active * [place] Suicide Severity Rating Scale (Screener/Recent Self-Report) Question Answer Date of Assessment Author Status 1. Wish to be (Past 1 Month) No 04/22/2024 9:27 AM BLOCK PLACER Alma Jerry, KIA Activ e 2. Non-Specific Active Suicidal Thoughts (Past 1 Month) No 04/22/2024 9:27 AM BLOCK PLACER Alma Jerry RN Activ e 6. Suicidal Behavior (Lifetime) No 04/22/2024 9:27 AM BLOCK PLACER Alma Jerry RN Activ e documented as of this encounter Progress Notes * Natasha French RN - 04/19/2024 12:31 PM CST Spoke to patient regarding results-see result management note. Patient said no need to respond to this ELVPHD message. K PLACER documented in this encounter Plan of Treatment Not on file documented as of this encounter Visit Diagnoses Not on filedocumented in this encounter Additional Health Concerns Infection Onset Date Last Indicated Resolved Time Respiratory Rule Out 10/13/2024 10/13/2024 025 10:23 AM CDT COVID-19 Rule Out 10/13/2024 10/13/2024 10/13/2024 9:59 AM CDT Assessment Noted Time PHQ-9 Depression Total Score: 3 04/18/19 25 1:52 PM BLOCK PLACER documented as of this encounter Care Teams Watch Inspector Relationship Specialty Start Date End Date Roxy See PA-C PCP - General PHYSICIAN SCADA TECHNICIAN 07/17/23 06/04/24 [place] [id number] [address] PCP - General INTERNAL MEDICINE 06/05/24 documented as of this encounter
--- OUTSIDE RECORDS SUMMARY | 2024-10-31 11:38 | XMS_ITS | Encounter Summary ---
Author Organization [facility] Address [address] [place] [address] Care Team Providers Care Chief Technician Name Role Phone Roxy See PA-C Primary Care Provider [phone] Anjana Blanca MD Primary Care Provider [phone] Encounter Details Date Type Department Care Team (Late st Contact Info) Description 04/24/2024 Digital Media Broadcastt Message Enc [facility] Medical Group Family & Internal Medicine [address] [address] Anjana Blanca [place] [id number] [place] [address] Appointment Social History Tobacco Use Types [...] Sex Assigned at Female 04/22/2024 9:29 AM DIRECT SERVICE WORKER Legal Sex Female 4:53 PM CDT [...] Depression Total Score: 3 04/18/19 1:52 PM DIRECT SERVICE WORKER documented as of this encounter Care Teams Chief Technician Relationship Specialty Start Date End Date Roxy See PA-C PCP - General PHYSICIAN TRIP MOTOR OPERATOR 07/17/23 06/04/24 [place] [address] [address] PCP - General INTERNAL MEDICINE 06/05/24 documented as of this encounter
--- OUTSIDE RECORDS SUMMARY | 2024-10-31 11:38 | XMS_ITS | Referral Summary ---
Author Organization [facility] Address [address] [facility] [address] [place] [address] Phone Care Team Providers Care Infant Teacher Name Role Phone Rosalinda Pryor MD Primary Care Provider [phone] Allergies Active Allergy Reactions Criticality Noted Date [...] ABORH O Positive 04/12/2021 IDCOOMB Negative 04/12/2021 [id number] Nonreactive 07/06/2021 LABRPR Nonreactive 07/06/2021 RUBELIGG Reactive 04/12/2021 HEPBSAG Nonreactive 04/12/2021 [id number] 113 07/06/2021 Optional: [x] Aneuploidy screening: declines [x] Carrier testing:declines 2nd Tri Labs: [x] Anatomy ultrasound: 05/26/21 [x] CBC/1hr gtt/HIV/RPR at 24-28wks: Lab Results Component Value Date [id number] 113 07/06/2021 [id number] Nonreactive 07/06/2021 LABRPR Nonreactive 07/06/2021 [x] Flu [...] How often do you attend chur or synagogue services? Never 09/25/2021 Do you belong to any clubs o r organizations such as taoist groups, unions, fraternal or athletic groups, or [...] place to sleep or slept in a mcc (including now)? No 09/25/2021 Rumford Depression Scale Answer Date Recorded [place] Depression Scale Total 6 10/08/2021 The thought [...] CDT 07/27/2020 2:44 PM CDT Narrative PATHOLOGY [facility] - 07/28/2020 4:23 PM CDT [facility] results best viewed via link to PDF [address] [address] Tele: Helene Hill MD - Stab Setter And Driller CYTOLOGY REPORT Patient Name: APPLE GUIDRY Address: [address] [place] [address] Gender: F : 1995 (Age: 25) Service: Laboratory Location: Lab [facility] #: [id number] Patient Type: [facility] Lab Taken: 07/24/2020 Reported: 07/28/2020 Physician(s): Jennyfer Rosales, RN, CANDY SEPARATOR ENROBING FINAL DIAGNOSIS: Specimen Type: - ThinPrep Pap w/ reflex HPV Statement of Specimen Adequacy: Source: Cervical/Endocervical - Satisfactory for interpretation - Endocervical /Transformation Zone component present - Case screened using computer assisted imaging technology and manually re- screened by a feather cutting machine feeder. General Categorization: - Negative for intraepithelial lesion [...] LAB CYTOLOGY ORDERABLES Nikky bella Result PATHOLOGY [facility] Laboratory Receiving [address] [place] [address] from Last 3 Months or Most Recently Relevant to Health Maintenance Insurance [facility] [employer] Advance Directives For more information, please contact: [phone] * Full Code (Latest Code Status on File) Date Activated Date Inactivated Comments 09/22/2021 1:41 PM 09/25/2021 8:11 PM * Full Code Date Activated Date Inactivated Comments 09/21/2021 11:45 AM 09/22/2021 1:41 PM Full CPR in case of cardiopulmonary arrest Care Teams Infant Teacher Relationship Specialty [place] [address] [facility] [address] [address] PCP - General Internal Medicine 07/31/20
--- OUTSIDE RECORDS SUMMARY | 2024-10-31 11:38 | XMS_ITS | Encounter Summary ---
Author Organization [facility] Address [address] [place] [address] Care Team Providers Care Kennel Attendant Name Role Phone Anjana Blanca MD Primary Care Provider [phone] Encounter Details Date Type Department Care Team (Latest Contact Info) Description 10/30/2024 Travel Social History Tobacco Use Types Packs/Day Years [...] Sex Assigned at Female 04/22/2024 9:29 AM DEVELOPER TRADING SYSTEMS Legal Sex Female 4:53 PM CDT Gender Identity Female 01/26/2022 9:57 AM CDT Sexual Orientation Not on file documented as of this encounter Plan of Treatment Not on file documented as of this encounter Visit Diagnoses Not on filedocumented in this encounter Additional Health Concerns Assessment Noted Time PHQ-9 Depression Total Score: 3 04/18/19 25 1:52 PM DEVELOPER TRADING SYSTEMS documented as of this encounter Care Teams Kennel Attendant Relationship Specialty [place] [address] [place] [address] PCP - General INTERNAL MEDICINE 06/05/24 documented as of this encounter
--- OUTSIDE RECORDS SUMMARY | 2024-10-31 11:38 | XMS_ITS | Encounter Summary ---
Author Organization [facility] Address [address] [place] [address] Care Team Providers Care Track Car Operator Name Role Phone Anjana Blanca MD Primary Care Provider Reason for Visit * Reason Comments Abdominal Pain To left side-off and on x 2 weeks-was in ER on October 13-than started with fever 5 days ago and abdominal pain yesterday Encounter Details Date Type Department Care Team (Late st Contact Info) Description 10/30/2024 11:20 AM CDT Office Visit [facility] Medical Group Family & Internal Medicine [address] [address] Robert Driver PA [address] [place] [address] Abdominal Pain (To left side-off and on x 2 weeks-was in ER on October 13-than started with fever 5 days ago and abdominal pain yesterday) Social History Tobacco Use Types Packs/Day Years [...] Assigned at Female 04/22/2024 9:29 AM SUPERVISOR COIN MACHINE Legal Sex Female 4:53 PM CDT Gender Identity Female 01/26/2022 9:57 AM CDT Sexual Orientation Not on file documented as of this encounter Last Filed Vital Signs Vital Sign Reading [...] Mass Index 41.2 10/30/2024 11:14 AM CDT documented in this encounter Plan of Treatment Not on file documented as of this encounter Visit Diagnoses Not on filedocumented in this encounter Additional Health Concerns Assessment Noted Time PHQ-9 Depression Total Score: 3 04/18/19 1:52 PM SUPERVISOR COIN MACHINE documented as of this encounter Care Teams Track Car Operator Relationship Specialty [place] [address] [address] PCP - General INTERNAL MEDICINE 06/05/24 documented as of this encounter
--- OUTSIDE RECORDS SUMMARY | 2024-10-31 11:38 | XMS_ITS | Encounter Summary ---
Author Organization [facility] Address [address] [place] [address] Care Team Providers Care Medical Device Name Role Phone Roxy See PA-C Primary Care Provider [phone] Anjana Blanca MD Primary Care Provider [phone] Encounter Details Date Type Department Care Team (Late st Contact Info) Description 09/05/2023 Winkcam Message [facility] Medical Group Family & Internal Medicine [address] [address] Roxy See PA-C [facility] [place] [address] Medication Social History Tobacco Use Types Packs/Day [...] Sex Assigned at Female 04/22/2024 9:29 AM AIRCRAFT CABIN CLEANER Legal Sex Female 4:53 PM CDT Gender [...] documented as of this encounter Care Teams Medical Device Relationship Specialty Start Date End Date Roxy See PA-C PCP - General PHYSICIAN HABILITATION WORKER 07/17/23 06/04/24 [place] [address] [address] PCP - General INTERNAL MEDICINE 06/05/24 documented as of this encounter
--- OUTSIDE RECORDS SUMMARY | 2024-10-31 11:38 | XMS_ITS | Clinical Summary ---
Author Organization [facility] Care Team Providers Care Water Pollution Control Inspector Name Role Phone Unavailable Primary Care Provider Unavailabl e Social History Tobacco Use Types Packs/Day Years Used Date Smoking Tobacco: Never Assessed Comments Unknown Sex and Gender Information Value Date Recorded Sex Assigned at Not on file Legal Sex Female 12:58 PM RING SEWER Gender Identity Not on file Sexual Orientation [...]
--- OUTSIDE RECORDS SUMMARY | 2024-10-31 11:39 | XMS_ITS | Clinical Summary ---
Author Organization [facility] Address [address] [facility] [address] [place] [address] Phone Care Team Providers Care Poultry Scientist Name Role Phone Rosalinda Pryor MD Primary Care Provider [phone] Allergies Active Allergy Reactions Criticality Noted Date [...] ABORH O Positive 04/12/2021 IDCOOMB Negative 04/12/2021 [id number] Nonreactive 07/06/2021 LABRPR Nonreactive 07/06/2021 RUBELIGG Reactive 04/12/2021 HEPBSAG Nonreactive 04/12/2021 [id number] 113 07/06/2021 Optional: [x] Aneuploidy screening: declines [x] Carrier testing:declines 2nd Tri Labs: [x] Anatomy ultrasound: 05/26/21 [x] CBC/1hr gtt/HIV/RPR at 24-28wks: Lab Results Component Value Date [id number] 113 07/06/2021 [id number] Nonreactive 07/06/2021 LABRPR Nonreactive 07/06/2021 [x] Flu [...] often do you attend chur ch or anglican services? Never 09/25/2021 Do you belong to any clubs o r organizations such as yarsanism groups, unions, fraternal or athletic groups, or [...] place to sleep or slept in a alf (including now)? No 09/25/2021 [place] Depression Scale Answer Date Recorded [place] Depression Scale Total 6 10/08/2021 The thought [...] Pro koko in First Stage, Intolerance Delivery Location:[facility] Main C ampus ([facility] L AND D PROCEDURE) Last Filed Vital [...] CDT 07/27/2020 2:44 PM CDT Narrative PATHOLOGY [facility] - 07/28/2020 4:23 PM CDT [facility] results best viewed via link to PDF [address] [address] Tele: Helene Hill MD - Commercial Sales Representative CYTOLOGY REPORT Patient Name: APPLE GUIDRY Address: [address] [place] [address] Gender: F : 1995 (Age: 25) Service: Laboratory Location: Lab [facility] #: [id number] Patient Type: [facility] Lab Taken: 07/24/2020 Reported: 07/28/2020 Physician(s): Jennyfer Rosales, RN, VALUE ANALYST FINAL DIAGNOSIS: Specimen Type: - ThinPrep Pap w/ reflex HPV Statement of Specimen Adequacy: Source: Cervical/Endocervical - Satisfactory for interpretation - Endocervical /Transformation Zone component present - Case screened using computer assisted imaging technology and manually re- screened by a brand advisor. General Categorization: - Negative for intraepithelial lesion [...] LAB CYTOLOGY ORDERABLES Nikky bella Result PATHOLOGY [facility] Laboratory Receiving [address] [place], [place] [phone] from Last 3 Months or Most Recently Relevant to Health Maintenance Insurance [employer] O[place] [employer] [place] [place] [address] [employer] OOS Advance Directives For more information, please contact: [phone] * Full Code (Latest Code Status on File) Date Activated Date Inactivated Comments 09/22/2021 1:41 PM 09/25/2021 8:11 PM * Full Code Date Activated Date Inactivated Comments 09/21/2021 11:45 AM 09/22/2021 1:41 PM Full CPR in case of cardiopulmonary arrest Care Teams Poultry Scientist Relationship Specialty [place] [address] [address] [address] PCP - General Internal Medicine 07/31/20
[2024-10-31 11:46] VITALS: BP 135/90; PULSE 96; RESP 16; TEMP 36.8; O2SAT 98
[2024-10-31 11:55] LABS: BEDSIDEPREGUCG Negative (Negative)
[2024-10-31 11:56] LABS: Hematocrit 38.0 % (37.0-47.0); Hemoglobin 12.5 g/dL (12.0-15.0); Immature Granulocyte Percent A 1.2 % (0-0.5); Lymphocytes Absolute Auto 6.57 K/mm3 (0.9-3.2); Mean Corpuscular HGB Conc 32.9 g/dl (32-36); Mean Corpuscular Hemoglobin 30.9 pg (26-34); Mean Corpuscular Volume 93.8 fl (80-100); Nucleated Red Blood Cells Absolute Auto 0.000 K/mm3 (0.0-0.012); Nucleated Red Blood Cells Perc 0.0 % (0.0-0.2); Platelet Count Result 233 k/mm3 (150-375); Red Blood Count 4.05 M/mm3 (4.2-5.4); White Blood Count 10.8 K/mm3 (4.5-10.0)
[2024-10-31 12:08] LABS: Add Urine Microscopic? YES; Appearance Urine Clear (Clear); Glucose Urine UA Negative (Negative); Leukocyte Esterase Ur Trace LEU/UL (Negative); Nitrate Urine Negative (Negative); Non Pathogenic Casts 0-2; Specific Grav Ur 1.028 (1.001-1.035)
[2024-10-31 12:20] LABS: Alanine Aminotransferase 43 U/L (6-35); Albumin Level 3.0 g/dL (3.5-5.1); Alkaline Phosphatase 101 U/L (38-126); Anion Gap 1 mmol/L (4-12); Aspartate Amino Transferase 50 U/L (14-36); Bilirubin,Total 0.6 mg/dL (0.2-1.3); Blood Urea Nitrogen 7 mg/dL (7-17); Calcium 8.4 mg/dL (8.4-10.2); Carbon Dioxide 27 mmol/L (22-30); Chloride 103 mmol/L (98-107); Estimated Glomerular Filt Rate > 60; Glucose 87 mg/dL (65-110); Lipase 37 U/L (23-300); Potassium 3.8 mmol/L (3.4-5.0); Sodium 131 mmol/L (137-145); Total Protein 6.4 g/dL (6.3-8.2)
[2024-10-31 12:30] LABS: Schistocytes None Seen; Smudge Cells PRESENT
--- OUTSIDE RECORDS SUMMARY | 2024-10-31 13:13 | XMS_ITS | Encounter Summary ---
Author Organization [facility] Address [address] [place] [address] Care Team Providers Care Customer Marketing Assistant Name Role Phone Anjana Blanca MD Primary Care Provider Encounter Details Date Type Department Care Team [...] Sex Assigned at Female 04/22/2024 9:29 AM DEVELOPMENTAL SERVICES WORKER Legal Sex Female 4:53 PM CDT Gender Identity Female 01/26/2022 9:57 AM CDT Sexual Orientation Not on file documented as of this encounter Plan of Treatment Not on file documented as of this encounter Visit Diagnoses Not on filedocumented in this encounter Additional Health Concerns Assessment Noted Time PHQ-9 Depression Total Score: 3 04/18/19 25 1:52 PM DEVELOPMENTAL SERVICES WORKER documented as of this encounter Care Teams Customer Marketing Assistant Relationship Specialty [place] [address] [place] [address] PCP - General INTERNAL MEDICINE 06/05/24 documented as of this encounter
--- OUTSIDE RECORDS SUMMARY | 2024-10-31 13:13 | XMS_ITS | Referral Summary ---
Author Organization [facility] Address [address] [facility] [address] [place] [address] Phone Care Team Providers Care Implementation Engineer Name Role Phone Rosalinda Pryor MD Primary Care Provider [phone] Allergies Active Allergy Reactions Criticality Noted Date [...] ABORH O Positive 04/12/2021 IDCOOMB Negative 04/12/2021 [id number] Nonreactive 07/06/2021 LABRPR Nonreactive 07/06/2021 RUBELIGG Reactive 04/12/2021 HEPBSAG Nonreactive 04/12/2021 [id number] 113 07/06/2021 Optional: [x] Aneuploidy screening: declines [x] Carrier testing:declines 2nd Tri Labs: [x] Anatomy ultrasound: 05/26/21 [x] CBC/1hr gtt/HIV/RPR at 24-28wks: Lab Results Component Value Date [id number] 113 07/06/2021 [id number] Nonreactive 07/06/2021 LABRPR Nonreactive 07/06/2021 [x] Flu [...] How often do you attend chur or jain services? Never 09/25/2021 Do you belong to any clubs o r organizations such as denominational groups, unions, fraternal or athletic groups, or [...] place to sleep or slept in a senior care (including now)? No 09/25/2021 [place] Depression Scale Answer Date Recorded [place] Depression Scale Total 6 10/08/2021 The thought [...] CDT 07/27/2020 2:44 PM CDT Narrative PATHOLOGY [facility] - 07/28/2020 4:23 PM CDT [facility] results best viewed via link to PDF [address] [address] Tele: Helene Hill MD - Machine Adjuster Leader CYTOLOGY REPORT Patient Name: APPLE GUIDRY Address: [address] [place] [address] Gender: F : 1995 (Age: 25) Service: Laboratory Location: Lab [facility] #: [id number] Patient Type: [facility] Lab Taken: 07/24/2020 Reported: 07/28/2020 Physician(s): Jennyfer Rosales, RN, DIRECTOR OF PLAYER PERSONNEL FINAL DIAGNOSIS: Specimen Type: - ThinPrep Pap w/ reflex HPV Statement of Specimen Adequacy: Source: Cervical/Endocervical - Satisfactory for interpretation - Endocervical /Transformation Zone component present - Case screened using computer assisted imaging technology and manually re- screened by a orthopedically impaired teacher. General Categorization: - Negative for intraepithelial lesion [...] LAB CYTOLOGY ORDERABLES Nikky bella Result PATHOLOGY [facility] Laboratory Receiving [address] [place] [address] from Last 3 Months or Most Recently Relevant to Health Maintenance Insurance [facility] OOS [employer] OOS Advance Directives For more information, please contact: [phone] * Full Code (Latest Code Status on File) Date Activated Date Inactivated Comments 09/22/2021 1:41 PM 09/25/2021 8:11 PM * Full Code Date Activated Date Inactivated Comments 09/21/2021 11:45 AM 09/22/2021 1:41 PM Full CPR in case of cardiopulmonary arrest Care Teams Implementation Engineer Relationship Specialty [place] [address] [facility] [address] [facility] [address] [address] PCP - General Internal Medicine 07/31/20
--- OUTSIDE RECORDS SUMMARY | 2024-10-31 13:13 | XMS_ITS | Encounter Summary ---
Author Organization [facility] Address [address] [place] [address] Care Team Providers Care Lump Machine Operator Name Role Phone Roxy See PA-C Primary Care Provider [phone] Anjana Blanca MD Primary Care Provider [phone] Encounter Details Date Type Department Care Team (Late st Contact Info) Description 04/19/2024 ScreenHitst Message Enc [facility] Medical [facility] Family & Internal Medicine [address] [address] [place] [id number] [place] [address] Test Results Social History Tobacco Use [...] Sex Assigned at Female 04/22/2024 9:29 AM MARINE ELECTRICIAN HELPER Legal Sex Female 4:53 PM CDT Gender Identity Female 01/26/2022 9:57 AM CDT Sexual Orientation Not on file documented as of this encounter Functional Status * Calculated C-SSRS Risk Score (Lifetime/Recent) Answer Date of Assessment Author Status No Risk Indicated 04/22/2024 9:27 AM MARINE ELECTRICIAN HELPER Alma Jerry RN Active * [place] Suicide Severity Rating Scale (Screener/Recent Self-Report) Question Answer Date of Assessment Author Status 1. Wish to be (Past 1 Month) No 04/22/2024 9:27 AM MARINE ELECTRICIAN HELPER Alma Jerry, KIA Activ e 2. Non-Specific Active Suicidal Thoughts (Past 1 Month) No 04/22/2024 9:27 AM MARINE ELECTRICIAN HELPER Alma Jerry RN Activ e 6. Suicidal Behavior (Lifetime) No 04/22/2024 9:27 AM MARINE ELECTRICIAN HELPER Alma Jerry RN Activ e documented as of this encounter Progress Notes * Natasha French RN - 04/19/2024 12:31 PM CST Spoke to patient regarding results-see result management note. Patient said no need to respond to this [facility] message. NE ELECTRICIAN HELPER documented in this encounter Plan of Treatment Not on file documented as of this encounter Visit Diagnoses Not on filedocumented in this encounter Additional Health Concerns Infection Onset Date Last Indicated Resolved Time Respiratory Rule Out 10/13/2024 10/13/2024 025 10:23 AM CDT COVID-19 Rule Out 10/13/2024 10/13/2024 10/13/2024 9:59 AM CDT Assessment Noted Time PHQ-9 Depression Total Score: 3 04/18/19 25 1:52 PM MARINE ELECTRICIAN HELPER documented as of this encounter Care Teams Lump Machine Operator Relationship Specialty Start Date End Date Roxy See PA-C PCP - General PHYSICIAN TECHNICAL SALES SUPPORT MANAGER 07/17/23 06/04/24 [place] [address] [address] PCP - General INTERNAL MEDICINE 06/05/24 documented as of this encounter
--- OUTSIDE RECORDS SUMMARY | 2024-10-31 13:13 | XMS_ITS | Encounter Summary ---
Author Organization [facility] Address [address] [place] [address] Care Team Providers Care Life Skills Consultant Name Role Phone Roxy See PA-C Primary Care Provider [phone] Anjana Blanca MD Primary Care Provider [phone] Encounter Details Date Type Department Care Team (Late st Contact Info) Description 08/29/2023 Onzot Message Enc [facility] Medical [facility] Family Medicine - [place] [address] [facility], [address] [place] [phone] [place] [address] [place] [address] Blood Work Results Social History Tobacco Use [...] Sex Assigned at Female 04/22/2024 9:29 AM SEAM FELLER Legal Sex Female 4:53 PM CDT Gender [...] documented as of this encounter Care Teams Life Skills Consultant Relationship Specialty Start Date End Date Roxy See PA-C PCP - General PHYSICIAN RAYON WINDER 07/17/23 06/04/24 [place] [address] [address] PCP - General INTERNAL MEDICINE 06/05/24 documented as of this encounter
--- OUTSIDE RECORDS SUMMARY | 2024-10-31 13:13 | XMS_ITS | Encounter Summary ---
Author Organization [facility] Address [address] [place] [address] Care Team Providers Care Assembler Trim Name Role Phone Roxy See PA-C Primary Care Provider [phone] Anjana Blanca MD Primary Care Provider [phone] Encounter Details Date Type Department Care Team (Late st Contact Info) Description 04/24/2024 TownWizardt Message Enc [facility] Medical [facility] Family & Internal Medicine [address] [address] Anjana Blanca [place] [id number] [place] [address] Appointment Social History Tobacco Use Types [...] Sex Assigned at Female 04/22/2024 9:29 AM WINDER TENDER Legal Sex Female 4:53 PM CDT Gender [...] Depression Total Score: 3 04/18/19 1:52 PM WINDER TENDER documented as of this encounter Care Teams Assembler Trim Relationship Specialty Start Date End Date Roxy See PA-C PCP - General PHYSICIAN COMMUNITY REPRESENTATIVE 07/17/23 06/04/24 [place] [address] [address] PCP - General INTERNAL MEDICINE 06/05/24 documented as of this encounter
--- OUTSIDE RECORDS SUMMARY | 2024-10-31 13:13 | XMS_ITS | Encounter Summary ---
Author Organization [facility] Address [address] [place] [address] Care Team Providers Care Dice Manager Name Role Phone Anjana Blanca MD Primary Care Provider Reason for Visit * Reason Comments Abdominal Pain To left side-off and on x 2 weeks-was in ER on October 13-than started with fever 5 days ago and abdominal pain yesterday Encounter Details Date Type Department Care Team (Late st Contact Info) Description 10/30/2024 11:20 AM CDT Office Visit [facility] Family & Internal Medicine [address] [address] Robert Driver PA [address] [place] [address] Abdominal Pain (To left side-off and on [...] Sex Assigned at Female 04/22/2024 9:29 AM BACON SLICER Legal Sex Female 4:53 PM CDT Gender [...] Depression Total Score: 3 04/18/19 1:52 PM BACON SLICER documented as of this encounter Care Teams Dice Manager Relationship Specialty Start [place] [address] [address] PCP - General INTERNAL MEDICINE 06/05/24 documented as of this encounter
--- OUTSIDE RECORDS SUMMARY | 2024-10-31 13:13 | XMS_ITS | Clinical Summary ---
Author Organization [facility] Address [address] [facility] [address] [place] [address] Phone Care Team Providers Care Career Center Director Name Role Phone Rosalinda Pryor MD Primary Care Provider [phone] Allergies Active Allergy Reactions Criticality Noted Date [...] ABORH O Positive 04/12/2021 IDCOOMB Negative 04/12/2021 [id number] Nonreactive 07/06/2021 LABRPR Nonreactive 07/06/2021 RUBELIGG Reactive 04/12/2021 HEPBSAG Nonreactive 04/12/2021 [id number] 113 07/06/2021 Optional: [x] Aneuploidy screening: declines [x] Carrier testing:declines 2nd Tri Labs: [x] Anatomy ultrasound: 05/26/21 [x] CBC/1hr gtt/HIV/RPR at 24-28wks: Lab Results Component Value Date [id number] 113 07/06/2021 [id number] Nonreactive 07/06/2021 LABRPR Nonreactive 07/06/2021 [x] Flu [...] often do you attend chur ch or muslim services? Never 09/25/2021 Do you belong to any clubs o r organizations such as yarsani groups, unions, fraternal or athletic groups, or [...] place to sleep or slept in a long-term (including now)? No 09/25/2021 [place] Depression Scale Answer Date Recorded [place] Depression Scale Total 6 10/08/2021 The thought [...] Pro koko in First Stage, Intolerance Delivery Location:[facility] Main C ampus ([facility] L AND D PROCEDURE) Last Filed Vital [...] CDT 07/27/2020 2:44 PM CDT Narrative PATHOLOGY [facility] - 07/28/2020 4:23 PM CDT [facility] results best viewed via link to PDF [address] [address] Tele: Helene Hill MD - Vp Scientific CYTOLOGY REPORT Patient Name: APPLE GUIDRY Address: [address] [place] [address] Gender: F : 1995 (Age: 25) Service: Laboratory Location: Lab [facility] #: [id number] Patient Type: [facility] Lab Taken: 07/24/2020 Reported: 07/28/2020 Physician(s): Jennyfer Rosales, RN, WEIGHT LOSS COUNSELOR FINAL DIAGNOSIS: Specimen Type: - ThinPrep Pap w/ reflex HPV Statement of Specimen Adequacy: Source: Cervical/Endocervical - Satisfactory for interpretation - Endocervical /Transformation Zone component present - Case screened using computer assisted imaging technology and manually re- screened by a typing checker. General Categorization: - Negative for intraepithelial lesion [...] LAB CYTOLOGY ORDERABLES Nikky bella Result PATHOLOGY [facility] Laboratory Receiving [address] [place], [place] [phone] from Last 3 Months or Most Recently Relevant to Health Maintenance Insurance [employer] [facility] OOS [employer] [place] [address] [address] [place] [address] [email or web address] OOS Advance Directives For more information, please contact: [phone] * Full Code (Latest Code Status on File) Date Activated Date Inactivated Comments 09/22/2021 1:41 PM 09/25/2021 8:11 PM * Full Code Date Activated Date Inactivated Comments 09/21/2021 11:45 AM 09/22/2021 1:41 PM Full CPR in case of cardiopulmonary arrest Care Teams Career Center Director Relationship Specialty Start [place] [address] [address] [address] PCP - General Internal Medicine 07/31/20
--- OUTSIDE RECORDS SUMMARY | 2024-10-31 13:13 | XMS_ITS | Encounter Summary ---
Author Organization [facility] Address [address] [place] [address] Care Team Providers Care Project Management Professional Name Role Phone Roxy See PA-C Primary Care Provider [phone] Anjana Blanca MD Primary Care Provider [phone] Encounter Details Date Type Department Care Team (Late st Contact Info) Description 04/20/2024 [employer] Message Enc [facility] Medical [facility] Family & Internal Medicine [facility] [address] [place] [address] [place] [id number] [place] [address] Urgent Social History Tobacco Use Types [...] Sex Assigned at Female 04/22/2024 9:29 AM DEMAND MANAGER Legal Sex Female 4:53 PM CDT Gender Identity Female 01/26/2022 9:57 AM CDT Sexual Orientation Not on file documented as of this encounter Functional Status * Calculated C-SSRS Risk Score (Lifetime/Recent) Answer Date of Assessment Author Status No Risk Indicated 04/22/2024 9:27 AM DEMAND MANAGER Alma Jerry RN Active * [place] Suicide Severity Rating Scale (Screener/Recent Self-Report) Question Answer Date of Assessment Author Status 1. Wish to be (Past 1 Month) No 04/22/2024 9:27 AM DEMAND MANAGER Alma Jerry RN Activ e 2. Non-Specific Active Suicidal Thoughts (Past 1 Month) No 04/22/2024 9:27 AM DEMAND MANAGER Alma Jerry RN Activ e 6. Suicidal Behavior (Lifetime) No 04/22/2024 9:27 AM DEMAND MANAGER Alma Jerry RN Activ e documented [...] Total Score: 3 04/18/19 25 1:52 PM DEMAND MANAGER documented as of this encounter Care Teams Project Management Professional Relationship Specialty Start Date End Date Roxy See PA-C PCP - General PHYSICIAN CASE MANAGERS 07/17/23 06/04/24 [place] [address] [place] [address] PCP - General INTERNAL MEDICINE 06/05/24 documented as of this encounter
--- OUTSIDE RECORDS SUMMARY | 2024-10-31 13:13 | XMS_ITS | Clinical Summary ---
Author Organization [facility] Address [address] [place] [address] Care Team Providers Care Pouncer Name Role Phone Anjana Blanca MD Primary [...] acyclovir as needed for breakout by the associate professor of english Iron deficiency anemia, unsp ecified iron deficiency anemia type 09/23/2024 Assessment & Plan (09/23/2024 8:06 AM CDT): Under care by [facility] in [place] and had 3 iron infusions already. Currently on 1 iron tab with vit C daily Menorrhagia with irregular cycle 09/23/2024 Assessment & Plan (09/23/2024 8:06 AM CDT): Causing iron deficiency anemia probably Seeing associate professor of english tomorrow for consideration of ablation Patient has a child of 3 years old son On control pill Primary hypertension 06/16/2022 Assessment & Plan (09/23/2024 8:06 AM CDT): Better controlled Currently on lisinopril 30 mg daily Morbid obesity with BMI of 40.0-44.9, adult /04/2019 Wound infection 09/12/2018 Mastodynia 05/10/2018 Neck pain 05/09/2018 Muscle spasm 05/09/2018 Macromastia 05/09/2018 Chronic pain of both shoulders 05/09/2018 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[facility]) 02/01/2018 Overview (2018): Overview: 11/1/18 repeat formal [...] Description 10/30/2024 11:20 AM CDT Office Visit [facility] Family & Internal Medicine [address] [address] Robert Driver PA Abdominal Pain (To left side-off and on x 2 weeks-was in ER on October 13-than started with fever 5 days ago and abdominal pain yesterday) 10/30/2024 Travel 10/13/2024 9:04 AM CDT - 10/13/2024 10:44 AM CDT Emergency [facility] Emergency Room [address] [place] [address] Paresh Silva DO Vomiting Discharge Disposition: Home or Self Care (Routine Discharge) 10/13/2024 Travel 09/23/2024 7:20 AM CDT Office Visit [facility] Family & Internal Medicine [address] [address] Anjana Blanca MD Physical (Physical [...] Sex Assigned at Female 04/22/2024 9:29 AM 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 Legal Sex Female 4:53 PM CDT Gender [...] 11/02, 11/19/2007, Additional history exists PHQ-2 (Physician Pauma) Completed 04/18/2024 Meningococcal B Vaccine Aged Out [...] COLOR (U) YELLOW 10/13/2024 9:54 AM CDT [facility] TRANSPARENCY CLEAR 10/13/2024 9:54 AM CDT [facility] SPECIFIC GRAVITY (U) 1.015 1.000 - 1.030 10/13/2024 9:54 AM CDT [facility] U PH 7.0 5.0 - 9.0 10/13/2024 9:54 AM CDT [facility] LEUKOCYTES (U) NEGATIVE NEGATIVE 10/13/2024 9:54 AM CDT [facility] NITRITES NEGATIVE NEGATIVE 10/13/2024 9:54 AM CDT [facility] PROTEIN RANDOM (U) NEGATIVE NEGATIVE 10/13/2024 9:54 AM CDT [facility] GLUCOSE (U) NEGATIVE NEGATIVE 10/13/2024 9:54 AM CDT [facility] KETONES MG/DL (U) NEGATIVE NEGATIVE 10/13/2024 9:54 AM CDT [facility] BILIRUBIN (U) NEGATIVE NEGATIVE 10/13/2024 9:54 AM CDT [facility] BLOOD (U) NEGATIVE NEGATIVE 10/13/2024 9:54 AM CDT [facility] URINE SPECIMEN OBTAINED BY CLEAN CATCH PROCEDURE / Unknown 10/13/2024 9:31 AM CDT Paresh Silva DO URINE ORDERABLES Final Result Performing Organization Address [facility] Co de Phone Number [facility] [address] [place] [address], [place] [phone] * TEST URINE (10/13/2024 9:31 AM CDT) URINE HCG TEST NEGATIVE NEGATIVE 10/13/2024 9:56 AM CDT [facility] Comment: VERY DILUTE URINE SPECIMENS MAY NOT CONTAIN CRUISE COORDINATOR LEVELS OF HCG. IF IS STILL SUSPECTED, A SERUM HCG TEST IS RECOMMENDED. URINE SPECIMEN FROM URETHRA / Unknown 10/13/2024 9:31 AM CDT us Paresh Silva DO URINE ORDERABLES Final Result Performing Organization Address [facility]/ZIP Co de Phone Number [facility] [address] [place] [address], [place] [phone] * (ABNORMAL) COMPREHENSIVE METABOLIC PANEL (10/13/2024 9:26 AM CDT) GLUCOSE 81 70 - 99 MG/DL 10/13/2024 10:04 AM [facility] BUN 6(L) 7 - 18 MG/DL 10/13/2024 10:04 AM [facility] CREATININE S/P/B 0.77 0.55 - 1.02 MG/DL 10/13/2024 10:04 AM [facility] SODIUM S/P/B 141 136 - 145 MMOL/L 10/13/2024 10:04 AM [facility] POTASSIUM S/P/B 3.7 3.5 - 5.1 MMOL/L 10/13/2024 10:04 AM [facility] CHLORIDE S/P/B 103 100 - 108 MMOL/L 10/13/2024 10:04 AM [facility] CO2 30.9 21 - 32 MMOL/L 10/13/2024 10:04 AM [facility] CALCIUM S/P/B 8.7 8.5 - 10.1 MG/DL 10/13/2024 10:04 AM [facility] BILIRUBIN TOTAL S/P/B 0.7 0.2 - 1.2 MG/DL 10/13/2024 10:04 AM [facility] TOTAL PROTEIN S/P/B 7.1 6.4 - 8.2 G/DL 10/13/2024 10:04 AM [facility] ALBUMIN S/P/B 3.2(L) 3.4 - 5.0 G/DL 10/13/2024 10:04 AM [facility] AST 48(H) 15 - 37 U/L 10/13/2024 10:04 AM [facility] ALT 67(H) 14 - 55 U/L 10/13/2024 10:04 AM CDT [facility] ALKALINE PHOSPHATASE S/P/B 144(H) 50 - 136 U/L 10/13/2024 10:46 AM CDT [facility] Comment: CALLED TO AND READ BACK BY KIA FRANCO @[facility], CORRECTED ON 10/13 AT 1046: PREVIOUSLY REPORTED 4 ANION GAP 7.1 5 - 15 MMOL/L 10/13/2024 10:04 AM CDT [facility] BUN CREATININE RATIO 7.8 6 - 26 10/13/2024 10:04 AM CDT [facility] A/G RATIO 0.8(L) 1.0 - 2.0 RATIO 10/13/2024 10:04 AM CDT [facility] GFR ESTIMATE >90 >90 ML/MIN/1.7 3 M2 10/13/2024 10:46 AM CDT [facility] Comment: NOTE: eGFR is [...] Silva DO LABORATORY Edited Result - Final [facility] [address] [place] [address], * (ABNORMAL) CBC W/DIFF AUTOMATED (10/13/2024 9:26 AM CDT) WBC 4.01(L) 4.4 - 11.0 x10'3/uL 10/13/2024 10:20 AM CDT [facility] RBC 4.43(L) 4.50 - 5.10 x10'6/uL 10/13/2024 10:20 AM CDT [facility] HGB 13.6 12.3 - 15.3 G/DL 10/13/2024 10:20 AM CDT [facility] HCT 39.8 35.9 - 44.6 % 10/13/2024 10:20 AM CDT [facility] MCV 89.8 80.0 - 96.0 FL 10/13/2024 10:20 AM CDT [facility] MCH 30.7 25.3 - 30.9 PG 10/13/2024 10:20 AM CDT [facility] MCHC 34.2(H) 31.0 - 34.1 G/DL 10/13/2024 10:20 AM T [facility] RDW 14.4 12.4 - 15.1 % 10/13/2024 10:20 AM T [facility] PLT 162 151 - 353 x10'3/uL 10/13/2024 10:20 AM T [facility] MPV 9.8 9.6 - 12.0 FL 10/13/2024 10:20 AM CDT [facility] SEG NEUTROPHILS 61 42 - 72 % 10:22 AM T [facility] LYMPHOCYTES 25 15.8 - 45.0 % 10/13/2024 10:22 AM CDT [facility] MONOCYTES 7 5.7 - 12.5 % 10/13/2024 10:22 AM T [facility] EOSINOPHILS 7(H) 0 - 5.6 % 10/13/2024 10:22 AM CDT [facility] ABS. NEUTROPHILS 2.45 1.40 - 6.00 x10'3/uL 10/13/2024 10:22 AM CDT [facility] ABS. LYMPHOCYTES 1.00 0.80 - 4.70 x10'3/uL 10/13/2024 10:22 AM CDT [facility] PLT MORPH. NORMAL 10/13/2024 10:22 AM CDT [facility] RBC MORPHOLOGY NORMAL 10/13/2024 10:22 AM CDT [facility] WBC MORPHOLOGY NORMAL 10/13/2024 10:22 AM CDT [facility] 10/13/2024 9:26 AM CDT [facility] Shira HUNTER LABORATORY Final Result Performing Organization Address [facility]/ZIP Co de Phone Number [facility] [address] [place] [address], * LIPASE (10/13/2024 9:26 AM CDT) Pathologist [facility] LIPASE 16 16 - 77 UNITS/L 10/13/2024 10:04 AM CDT [facility] 10/13/2024 9:26 AM CDT Paresh Silva DO LABORATORY Final Result Performing Organization Address [facility]/ZIP Co de Phone Number [facility] [address] [place] [address], [place] [phone] * CORONAVIRUS (COVID-19) MOLECULAR (10/13/2024 9:22 AM CDT) Pathologist [facility] CORONAVIRUS SARS COV 2 RNA NEGATIVE NEGATIVE 10/13/2024 9:59 AM CDT [facility] Comment: NEGATIVE RESULTS DO [...] SPECIMEN TYPE NASAL 10/13/2024 9:25 AM CDT [facility] NASOPHARYNGEAL SWAB / Unknown 10/13/2024 9:22 AM CDT Paresh Silva DO MICROBIOLOGY - GENERAL ORDERAB LES Final Result Performing Organization Address [facility] de Phone Number [facility] [address] [place] [address], [place] [phone] * INFLUENZA A & B (10/13/2024 9:22 AM CDT) SPECIMEN TYPE NASOPHARYNGEAL SWAB 10/13/2024 9:38 AM CDT [facility] INFLUENZA A NEGATIVE NEGATIVE 10/13/2024 10:23 AM CDT [facility] INFLUENZA B NEGATIVE NEGATIVE 10/13/2024 10:23 AM CDT [facility] NASAL STRUCTURE / Unknown 10/13/2024 9:22 AM CDT Paresh Silva DO MICROBIOLOGY - GENERAL ORDERAB LES Final Result Performing Organization Address [facility] Co de Phone Number [facility] [address] [place] [address], [place] [phone] * PAP SMEAR (07/24/2020) 07/24/2020 us Documents Scanned SCANNING Final Result [facility] ONBASE from Last 3 Months or Most Recently Relevant to Health Maintenance Insurance [facility] Care Teams Pouncer Relationship Specialty [place] [address] [facility] [address] [place] [id number] PCP - General INTERNAL MEDICINE 06/05/24
--- OUTSIDE RECORDS SUMMARY | 2024-10-31 13:13 | XMS_ITS | Clinical Summary ---
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
--- OUTSIDE RECORDS SUMMARY | 2024-10-31 13:13 | XMS_ITS | Encounter Summary ---
Author Organization [facility] Address [address] [place] [address] Care Team Providers Care Chief School Finance Officer Name Role Phone Jayant Rosado DO Primary Care Provider [phone] Rosalinda Pryor MD Primary Care Provider [phone] Yamil Guthrie MD Primary Care Pr israeler Ramila Gunn NP Primary Care Provider + [phone] Roxy SeeC Primary Care Provider [phone] Anjana Blanca MD Primary Care Provider [phone] Encounter Details Date Type Department Care Team (Late st Contact Info) Description 02/04/2017 [place] [address] , Generic Conversion, Social History Tobacco Use Types Packs/Day Years Used Date Smoking Tobacco: Never Assessed Comments Unknown Sex and Gender Information Value Date Recorded Sex Assigned at Female 04/22/2024 9:29 AM 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 [address] PCP - General Nurse Practitioner Family 07/12/2207/02 Roxy See PA-C [address] [place] [address] PCP - General PHYSICIAN INSTANTIZER OPERATOR 07/17/23 06/04/24 [place] [address] [place] [address] PCP - General INTERNAL MEDICINE 06/05/24 documented as of this encounter
--- OUTSIDE RECORDS SUMMARY | 2024-10-31 13:13 | XMS_ITS | Encounter Summary ---
Author Organization [facility] Address [address] [place] [address] Care Team Providers Care Data Services Developer Name Role Phone Roxy See PA-C Primary Care Provider [phone] Anjana Blanca MD Primary Care Provider [phone] Encounter Details Date Type Department Care Team (Late st Contact Info) Description 09/05/2023 [facility] Message [facility] [employer] [facility] Family & Internal Medicine [address] [address] Roxy See PA-C [facility] [place] [address] Medication Social History Tobacco Use Types Packs/Day [...] Sex Assigned at Female 04/22/2024 9:29 AM FOOD SAFETY MANAGER Legal Sex Female 4:53 PM CDT [...] documented as of this encounter Care Teams Data Services Developer Relationship Specialty Start Date End Date Roxy See PA-C PCP - General PHYSICIAN TELEVISION PRODUCTION CLERK 07/17/23 06/04/24 [place] [address] [address] PCP - General INTERNAL MEDICINE 06/05/24 documented as of this encounter
--- NOTE | 2024-10-31 13:15 | ED.NAVMDI ---
HPI - Nausea/Vomiting/Diarrhea General Chief complaint: Nausea/Vomiting/Diarrhea Stated complaint: n/v Time Seen by Provider: 10/31/24 12:40 History of Present Illness HPI Narrative: For the last few weeks patient has had some nausea and left-sided abdominal discomfort, she also had has had some weight loss, she is being seen by occupational health manager for abnormal CBC. Related Data Home Medications ?Medication ?Instructions ?Recorded ?Confirmed ?Last Taken ?Type lisinopril 10 mg tablet 10 mg PO DAILY 11/15/22 10/25/24 10/24/24 History ascorbic acid (vitamin C) 100 mg 100 mg PO DAILY 10/17/24 10/25/24 10/22/24 History tablet (Vitamin C) ergocalciferol (vitamin D2) 1,250 1,250 mcg PO WEEKLY 10/17/24 10/17/24 Unknown History mcg (50,000 unit) capsule ferrous sulfate 325 mg (65 mg 325 mg PO DAILY 10/17/24 10/25/24 10/22/24 History iron) tablet Allergies Allergy/AdvReac Type Severity Reaction Status Date / Time cefprozil Allergy Unknown Unknown Verified 10/31/24 13:28 Review of Systems Review of Systems: All systems reviewed & are unremarkable except as noted in HPI and below PMFSH Past Medical History Medical History HSV-2 (herpes simplex virus 2) infection Hypertension Anxiety Surgical History Surgical History History of section Hx of breast reduction, elective Social History Social History Smoking status: Current every day smoker Alcohol intake: current Alcohol use details: Rarely Substance use: never Lack of Transportation: No Lack of Food: Never True Current Housing: I Have Housing Concerned About Future Housing: No Difficulty Paying Gas/Electric Bills: No Difficulty Paying for Meds: No Currently Unemployed: No Education: Associate Degree Difficulty w/ Childcare or Family Care: No Living arrangements: with family Occupation/Education: occupation Gender identity (if verbalized by the patient): Female Sexual Orientation (if Verbalized by the Patient): Straight or Heterosexual Spiritual care concerns: No Exam Narrative: EXAMINATION OF ORGAN SYSTEMS/BODY AREAS: Constitutional: Vital signs per nursing GENERAL:[No acute distress, non-toxic appearing.] HEAD: Normal with no signs of head trauma. EYES: EOMI, conjunctiva normal ENT: Hearing grossly intact LUNGS: Nonlabored breathing. HEART: [Regular rate and rhythm] ABD: [Soft], [nontender to palpation] EXT: Normal range of motion SKIN: [No rashes or lesions.] NEURO: [Alert and oriented x 3. No gross focal sensory or strength deficits.] PSYCH: Normal affect Course Course Emergency Course: Dr. Dubon Vital Signs Vital signs: Vital Signs Temperature 98.2 F 10/31/24 11:46 Pulse Rate 96 10/31/24 11:46 Respiratory Rate 16 10/31/24 11:46 Blood Pressure 135/90 10/31/24 11:46 Pulse Oximetry 98 10/31/24 11:46 Temperature 98.2 F 10/31/24 11:46 Pulse Rate 91 10/31/24 14:01 Respiratory Rate 16 10/31/24 14:01 Blood Pressure 109/73 10/31/24 14:01 Pulse Oximetry 100 10/31/24 14:01 MDM - Nausea/Vomiting/Diarrhea MDM Narrative Medical decision making narrative: Patient p/w n/v, abd pain x3wk, had recent viral syndrome. Well appearing here, abd soft nt. CBC unfortunately abnl with lymphocytes, smudge cells. She already sees hem with [facility] but this abnl diff is new (I did peruse her prior EMR/labs from her occupational health manager.) D/w pt; CT obtained shows splenomegaly with infarct, further concerning me for possible hematologic malignancy. I did call Hematology at [facility] Cl is this, which is where patient gets the majority of her care, where her PCP is, where she would like to follow up, and spoke with Dr Dubon occupational health manager, who feels patient needs close follow-up with him in the clinic, does not feel patient needs admitted and I agree, CT also showed a small hiatal hernia which could also be causing her symptoms, so I will start her on acid reducers. Long discussion with the patient regarding my concerns and the need for follow-up, she is agreeable to plan. She is not reporting some occasional pain with taking deep breaths, given she already has a splenic infarct I did obtain CT PE which is thankfully negative for PE. Strict return precautions discussed. Parent/fam at bedside. Lab Data 10/31/24 11:44 10/31/24 11:44 Labs: Lab Results 10/31/24 10/31/24 Range/Units 11:44 11:51 WBC 10.8 H (4.5-10.0) K/mm3 RBC 4.05 L (4.2-5.4) M/mm3 Hgb 12.5 (12.0-15.0) g/dL Hct 38.0 (37.0-47.0) % MCV 93.8 (80-100) fl MCH 30.9 (26-34) pg MCHC 32.9 (32-36) g/dl RDW 15.3 H (11.5-14.5) % Plt Count 233 (150-375) k/mm3 MPV 9.2 (7.4-10.4) fl Immature Gran % (Auto) 1.2 H (0-0.5) % Neut % (Auto) 28.5 L (45.5-73.1) % Lymph % (Auto) 61.0 H (18.3-44.2) % Leslie % (Auto) 6.3 (2.6-8.5) % Eos % (Auto) 1.6 (0-4.4) % Baso % (Auto) 1.4 H (0.2-1.2) % Lymph # (Auto) 6.57 H (0.9-3.2) K/mm3 Leslie # (Auto) 0.7 H (0.1-0.6) K/mm3 Eos # (Auto) 0.2 (0-0.3) K/mm3 Baso # (Auto) 0.2 H (0.0-0.1) K/mm3 Abs Immat Gran (auto) 0.13 H (0.00-0.031) K/mm3 Absolute Neuts (auto) 3.1 (1.3-6.7) K/mm3 Absolute Nucleated RBC 0.000 (0.0-0.012) K/mm3 Band Neutrophils % Not Reportable Nucleated RBC % 0.0 (0.0-0.2) % Atypical Lymphocytes Present Smudge Cells Present Platelet Estimate Adequate (Adequate) Schistocytes None seen Sodium 131 L (137-145) mmol/L Potassium 3.8 (3.4-5.0) mmol/L Chloride 103 (98-107) mmol/L Carbon Dioxide 27 (22-30) mmol/L Anion Gap 1 L (4-12) mmol/L BUN 7 (7-17) mg/dL Creatinine 0.76 (0.7-1.0) mg/dL Estim Creat Clear Calc Not Reportable Estimated GFR > 60 (59 - ) Glucose 87 (65-110) mg/dL Calcium 8.4 (8.4-10.2) mg/dL Total Bilirubin 0.6 (0.2-1.3) mg/dL AST 50 H (14-36) U/L ALT 43 H (6-35) U/L Alkaline Phosphatase 101 (38-126) U/L Total Protein 6.4 (6.3-8.2) g/dL Albumin 3.0 L (3.5-5.1) g/dL Lipase 37 (23-300) U/L Urine Color Dark yellow (Yellow) Urine Appearance Clear (Clear) Urine pH 6.5 (5.0-9.0) Ur Specific [place] 1.028 (1.001-1.035) Urine Protein Trace (Negative) mg/dL Urine Glucose (UA) Negative (Negative) mg/dL Urine Ketones Trace H (Negative) mg/dL Ur Blood (Man) Negative (Negative) Urine Nitrate Negative (Negative) Urine Bilirubin 1+ H (Negative) Urine Urobilinogen 1.0 (<2.0) mg/dL Leukocyte Esterase Rfl Trace H (Negative) IRWIN/UL Urine RBC 0-2 (0-2) /hpf Urine WBC 0-5 (0-3) /hpf Ur Squamous Epith Cells Few (Few) /hpf Urine Bacteria Rare /hpf Urine Casts 0-2 POC Urine HCG, Qual Negative (Negative) Discharge Plan Discharge Clinical Impression: Splenomegaly, Abnormal CBC Patient Disposition: Home Condition: Stable Instructions: Antibiotic Form Additional Instructions: Your labwork today is showing some abnormality in the CBC, with smudge cells and atypical lymphocytes, as well as enlarged spleen, which is concerning for possible hematologic malignancy or other cause; please follow up with your occupational health manager for further evaluation, as you may benefit from additional labs including blood smear or cytology. Thankfully no blood clot seen in your lungs on CT today. Please follow up with hem[facility]onc at [facility], please call [phone] to make your appointment. You can always return to the ER for any further issues. Patient Language: Frisian Prescriptions: New famotidine 20 mg tablet 20 mg PO DAILY Qty: 30 0RF ondansetron 4 mg tablet,disintegrating 4 mg PO Q8H PRN (Reason: nausea and vomiting) Qty: 14 0RF No Action lisinopril 10 mg tablet 10 mg PO DAILY ferrous sulfate 325 mg (65 mg iron) tablet 325 mg PO DAILY Vitamin C 100 mg tablet 100 mg PO DAILY ergocalciferol (vitamin D2) 1,250 mcg (50,000 unit) capsule 1,250 mcg PO WEEKLY ondansetron HCl 4 mg tablet 4 mg PO Q6H Qty: 10 0RF metronidazole 500 mg tablet 500 mg PO BID Qty: 14 0RF sulfamethoxazole-trimethoprim [Bactrim DS] 800-160 mg tablet 1 tablet PO Q12H Qty: 14 0RF Follow-up/Referrals: Carlo Hall MD [Physician] - 2 Days UNKNOWN,DOCTOR [Primary Care Provider] -
[2024-10-31] MEDS: LACTATED RINGERS 1,000 ML 999 ML IV CONT (13:28)
[2024-10-31] MEDS: ONDANSETRON INJ 4 MG/2 ML VIAL IV PUSH (13:28)
[2024-10-31 13:31] VITALS: BP 114/72; PULSE 88; RESP 18; O2SAT 100
[2024-10-31 13:46] VITALS: BP 125/64; PULSE 97; RESP 18; O2SAT 100
[2024-10-31 14:01] VITALS: BP 109/73; PULSE 91; RESP 16; O2SAT 100
== END 2024-10-31 16:18 | disposition home or self-care (01) ==
PROVIDERS: Emergency Medicine; Emergency Provider Emergency Medicine
DX: R16.1 Splenomegaly, not elsewhere classified (principal); D73.5 Infarction of spleen; D72.828 Other elevated white blood cell count; R71.8 Other abnormality of red blood cells; I10 Essential (primary) hypertension; F41.9 Anxiety disorder, unspecified; F17.200 Nicotine dependence, unspecified, uncomplicated
CPT/HCPCS: 36415; 71275; 74177; 80053; 81001; 81025; 83690; 85025; 96361; 96374; 99284; J2405; J7120; Q9967